=== PATIENT | female | born 1940 | race Caucasian/White ===

== ENCOUNTER 2019-08-22 11:50 | Emergency (ER) | payer OTHER ==
--- NOTE | 2019-08-22 12:38 | RAD REPORT ---
EXAM DESCRIPTION: RAD - Chest Single View - 08/22/2019 12:33 pm CLINICAL HISTORY: CONGESTION Chest pain. COMPARISON: Chest Single View dated 11/13/2017; Chest Single View dated 11/03/2017; Chest Single View d ated 08/04/2017; CHEST PA AND LAT 2 VIEW dated 08/04/2012 FINDINGS: Portable technique limits examination quality. A chronic left pleural effusion is seen. The right lung appears clear. Heart is mildly enlarged in si ze. Right-sided shunt tubing traverses the chest.
[2019-08-22 13:06] LABS: Absolute Lymphocytes (CBC) 0.4 K/uL (0.7-4.9); Basophils % 0.5 % (0-1.3); Hematocrit 29.8 % (36.0-45.0); Lymphocytes % 6.1 % (15.3-44.8); MPV 8.5 fL (7.6-11.3); RBC Red Blood Cell Count 3.46 M/uL (3.86-4.86)
--- NOTE | 2019-08-22 13:11 | RAD REPORT ---
EXAM DESCRIPTION: CT - Abdomen Pelvis Wo Contrast - 08/22/2019 1:01 pm CLINICAL HISTORY: Abdominal pain. ABD PAIN COMPARISON: No comparisons TECHNIQUE: CT imaging of the abdomen and pelvis was performed without contrast. Solid organ, bowel a nd vascular assessment is limited due to lack of IV and oral contrast. All CT scans are performed using dose optimization technique as appropriate and may include automated exposure control or mA/KV adjustment according to patient size. FINDINGS: Chronic left pleural effusion is seen.Right lung base is clear. The liver, spleen, pancreas, adrenal glands and kidneys are within normal limits for a limited non-co ntrast examination. No bowel obstruction, free air, free fluid or abscess. Shunt tubing coils in the inferior pelvis. The appendix is not identified as a discrete structure, however, no secondary findings of appendicitis a re identified. The osseous structures are within normal limits. IMPRESSION: No acute intra-abdominal or pelvic findings. Chronic left pleural effusion. A limited non-contrast examination was performed as detailed.
[2019-08-22 13:12] LABS: AST/SGOT 22 U/L (15-37); Albumin 2.5 g/dL (3.4-5.0); Alkaline Phosphatase 105 U/L (45-117); BUN Blood Urea Nitrogen 18 mg/dL (7-18); Bicarbonate 31 mmol/L (21-32); Bilirubin Direct 0.2 mg/dL (0-0.2); Bilirubin Total 0.7 mg/dL (0.2-1.0); Glucose Level 133 mg/dL (74-106); Lipase 83 U/L (73-393); Potassium 3.6 mmol/L (3.5-5.1); Protein, Total 6.8 g/dL (6.4-8.2); Sodium Level 137 mmol/L (136-145)
[2019-08-22 13:15] LABS: ALT/SGPT < 6 U/L (12-78)
--- NOTE | 2019-08-22 13:25 | ER ---
Nurse's Notes [facility] Name: Nori Gonzales Age: 79 yrs Sex: Female : 1940 Arrival Date: 08/22/2019 Time: 12:01 Bed 5 Private MD: Diagnosis: Acute upper respiratory infection, unspecified Presentation: 08/22 12:02 Presenting complaint: EMS states: Patient is complaining of a non-productive cough, vc sweating and chills. Patient states she has not experienced any shortness of breath. Patient states that she started to have severe abdominal pain prior to arrival. Patient has no pain since arrival. Transition of care: patient was received from another setting of care ([facility]. Onset of symptoms was August 17, 2019. Risk Assessment: Do you want to hurt yourself or someone else? Patient reports no desire to harm self or others. Initial Sepsis Screen: Does the patient meet any 2 criteria? No. Patient's initial sepsis screen is negative. Does the patient have a suspected source of infection? No. Patient's initial sepsis screen is negative. Care prior to arrival: None. 12:02 Method Of Arrival: EMS: [facility] vc 12:02 Acuity: JADEN 3 vc Triage Assessment: 12:05 General: Appears in no apparent distress. comfortable, Behavior is calm, cooperative. vc Pain: Denies pain. Historical: - Allergies: 12:12 Codeine; vc 12:12 Diovan; vc 12:12 HYDROCODONE; vc 12:12 IV contrast; vc - Home Meds: 12:12 docusate sodium 100 mg Oral cap 1 cap 2 times per day for Constipation [Active]; vc azithromycin 250 mg Oral tab 1 tab once daily [Active]; Carafate 1 gram Oral tab 1 tab before meals [Active]; carbidopa-levodopa 25-100 mg Oral tab 1 tab daily for Normal Pressure Hydrocephalus [Active]; Claritin 10 mg Oral tab 1 tab once daily for Allergic Rhinitis [Active]; Coreg 12.5 mg Oral tab 1 tab 2 times per day [Active]; Eliquis 5 mg oral tab 1 tab 2 times per day for Prevention of Pulmonary Thromboembolism Recurrence [Active]; Flonase 50 mcg/actuation Nasal spsn 1 spray 2 times per day [Active]; - PMHx: 12:12 adhesive apsulitis of right shoulder; ANOREXIA; PE; chronic fatigue; Diabetes - NIDDM; vc Hypothyroidism; Normal pressure hydrocephalus; Dysphagia, oral phase; Cognitive Comminication Deficit; lung cancer; - Immunization history:: Adult Immunizations unknown. - Social history:: Smoking status: Patient/guardian denies using tobacco, Patient uses Patient/guardian denies using alcohol, street drugs, The patient lives with family. - Ebola Screening: : No symptoms or risks identified at this time. - Family history:: not pertinent. Screenin:05 Abuse screen: Denies threats or abuse. Nutritional screening: History of anorexia.. vc 12:05 Tuberculosis screening: No symptoms or risk factors identified. Fall Risk Secondary vc diagnosis (15 points) impaired mobility, IV access (20 points). Gait- Impaired (20 pts.). Total Ortiz Fall Scale indicates High Risk Score (45 or more points). Fall prevention measures have been instituted. Side Rails Up X 2 Frequent Obs/Assessments Occuring. Assessment: 12:05 General: Appears in no apparent distress. comfortable, Behavior is calm, cooperative. vc Pain: Denies pain. Neuro: Level of Consciousness is obeys commands, lethargic, Oriented to person, situation. Cardiovascular: Patient's skin is warm and dry. Cardiovascular:. Respiratory: Reports cough that is non-productive, persistent since "for the last 5 days.". 12:05 GI: No deficits noted. : No signs and/or symptoms were reported regarding the vc genitourinary system. EENT: Eyes are tearing on right inner canthus Reports nasal congestion. Derm: Skin is intact, is thin, Skin is dry, Skin temperature is cool. Musculoskeletal: Range of motion: Intact but patient is weak and has an unsteady gate. 12:13 Reassessment: Patient is taking Azithromycin 250mg daily for an upper respiratory vc infection, started 12-, per jail paperwork. 13:00 Reassessment: Patient and/or family updated on plan of care and expected duration. Pain vc level reassessed. Patient is alert, oriented x 3, equal unlabored respirations, skin warm/dry/pink. 14:00 Reassessment: Patient laying with eyes closed. Patients son at the bedside. vc 15:00 Reassessment: Patient and/or family updated on plan of care and expected duration. Pain vc level reassessed. Patient is alert, oriented x 3, equal unlabored respirations, skin warm/dry/pink. Patient states she is feeling better except for her cough. Patient states feeling better. Vital Signs: 12:00 BP 116 / 64; Pulse 82; Resp 18; Pulse Ox 98% on R/A; Pain 0/10; vc 12:45 BP 127 / 73; Pulse 87; Resp 20; Pulse Ox 97% on R/A; Pain 0/10; vc 13:45 BP 148 / 82; Pulse 89; Resp 19; Pulse Ox 96% on R/A; Pain 0/10; vc 14:45 BP 156 / 88; Pulse 97; Resp 18; Pulse Ox 94% on R/A; Pain 0/10; vc 15:20 BP 165 / 88; Pulse 97; Resp 20; Pulse Ox 95% on R/A; Pain 0/10; vc ED Course: 12:01 Patient arrived in ED. ph 12:03 Jen Osorio MD is Attending Physician. ma2 12:05 Arm band placed on. vc 12:05 Patient has correct armband on for positive identification. Bed in low position. Call vc light in reach. Side rails up X 1. 12:07 Triage completed. vc 12:09 Radiology exam delayed due to lab results not completed at this time. (BUN/Creatinine) sw IV insertion attempt and/or patient not having appropriate IV at this time. 12:34 Chest Single View XRAY In Process Unspecified. EDMS 12:35 Missed attempt(s): 22 gauge Bleeding controlled, band aid applied, catheter tip intact. vc 12:38 Inserted saline lock: 22 gauge in right antecubital area, using aseptic technique. vc Blood collected. 12:38 Initial lab(s) drawn, by nm, sent to lab. vc 12:43 Latasha Herrmann, RN is Primary Nurse. vc 12:58 CT completed. Patient tolerated procedure well. Patient moved to CT via stretcher. Patient moved back from CT. 13:01 Abdomen In Process Unspecified. EDMS 15:00 No provider procedures requiring assistance completed. IV discontinued, intact, vc bleeding controlled, No redness/swelling at site. Pressure dressing applied. 15:26 Awaiting transportation. vc Administered Medications: 13:20 Drug: Pepcid 20 mg Route: IVP; Site: right antecubital; vc 15:07 Follow up: Response: No adverse reaction vc 13:20 Drug: GI Cocktail without - (Maalox Suspension 30 ml, Lidocaine Liquid 2 % 15 vc ml) Route: PO; 15:06 Follow up: Response: No adverse reaction vc 13:40 Drug: NS 0.9% 1000 ml Route: IV; Rate: 1000 ml; Site: right antecubital; vc 15:07 Follow up: Response: No adverse reaction; IV Status: Completed infusion vc 15:06 Not Given (Patient denies pain at this time.): morphine 2 mg IM once; RASS on ADMIN: vc Combtv4, Very Agttd3, Agttd2, Rstlss1, AlertClm0, Drwsy-1, Lt Sdtn-2, Mod Sdtn-3, Dp Sdtn-4, UnArsble-5 15:08 Not Given (Patient Refused): Zofran 4 mg IVP once; over 2 minutes vc Outcome: 13:23 Discharge ordered by MD. morales 15:01 Discharged to jail. Report called to Acacia cervantes 15:01 Condition: improved 15:01 Discharge instructions given to patient, family, jail, EMS, Instructed on discharge instructions, follow up and referral plans. medication usage, Demonstrated understanding of instructions, follow-up care, medications, Prescriptions given X 2. 15:47 Patient left the ED. vc Signatures: Dispatcher [employer] EDJoycelyn Gandhi RN RN ph Warren, Shannon sw Alzahri, Mohammad, MD MD ma2 Calcote, Vanessa, RN RN vc Corrections: (The following items were deleted from the chart) 12:55 12:38 Inserted saline lock: 22 gauge in right antecubital area, using aseptic vc technique. vc 14:48 12:02 Presenting complaint: EMS states: Patient is complaining of a non-productive vc cough, sweating and chills. Patient states she has not experienced any shortness of breath. vc
--- NOTE | 2019-08-22 13:25 | EDPHYS ---
Physician Documentation [facility] Name: Nori Gonzales Age: 79 yrs Sex: Female : 1940 Arrival Date: 08/22/2019 Time: 12:01 Bed 5 Private MD: ED Physician Jen Osorio HPI: 08/22 13:22 This 79 yrs old Female presents to ER via EMS with complaints of Cough. ma2 13:22 The patient or guardian reports cough. Onset: The symptoms/episode began/occurred ma2 acutely, 1 hour(s) ago. Severity of symptoms: At their worst the symptoms were mild, in the emergency department the symptoms are unchanged. Associated signs and symptoms: The patient has no apparent associated signs or symptoms. The patient has not experienced similar symptoms in the past. here with epigastric abd pain started after taking antibiotics for her cough, cough is resolved . Historical: - Allergies: 12:12 Codeine; vc 12:12 Diovan; vc 12:12 HYDROCODONE; vc 12:12 IV contrast; vc - Home Meds: 12:12 docusate sodium 100 mg Oral cap 1 cap 2 times per day for Constipation [Active]; vc azithromycin 250 mg Oral tab 1 tab once daily [Active]; Carafate 1 gram Oral tab 1 tab before meals [Active]; carbidopa-levodopa 25-100 mg Oral tab 1 tab daily for Normal Pressure Hydrocephalus [Active]; Claritin 10 mg Oral tab 1 tab once daily for Allergic Rhinitis [Active]; Coreg 12.5 mg Oral tab 1 tab 2 times per day [Active]; Eliquis 5 mg oral tab 1 tab 2 times per day for Prevention of Pulmonary Thromboembolism Recurrence [Active]; Flonase 50 mcg/actuation Nasal spsn 1 spray 2 times per day [Active]; - PMHx: 12:12 adhesive apsulitis of right shoulder; ANOREXIA; PE; chronic fatigue; Diabetes - NIDDM; vc Hypothyroidism; Normal pressure hydrocephalus; Dysphagia, oral phase; Cognitive Comminication Deficit; lung cancer; - Immunization history:: Adult Immunizations unknown. - Social history:: Smoking status: Patient/guardian denies using tobacco, Patient uses Patient/guardian denies using alcohol, street drugs, The patient lives with family. - Ebola Screening: : No symptoms or risks identified at this time. - Family history:: not pertinent. ROS: 13:22 Constitutional: Negative for fever, chills, and weight loss, Cardiovascular: Negative ma2 for chest pain, palpitations, and edema, Respiratory: Negative for shortness of breath, cough, wheezing, and pleuritic chest pain, Abdomen/GI: Negative for abdominal pain, nausea, diarrhea, and constipation. 13:22 All other systems are negative. Exam: 13:22 Constitutional: This is a well developed, well nourished patient who is awake, alert, ma2 and in no acute distress. Head/Face: Normocephalic, atraumatic. ENT: Nares patent. No nasal discharge, no septal abnormalities noted. Tympanic membranes are normal and external auditory canals are clear. Oropharynx with no redness, swelling, or masses, exudates, or evidence of obstruction, uvula midline. Mucous membranes moist. Neck: Trachea midline, no thyromegaly or masses palpated, and no cervical lymphadenopathy. Supple, full range of motion without nuchal rigidity, or vertebral point tenderness. No Meningismus. Chest/axilla: Normal chest wall appearance and motion. Nontender with no deformity. No lesions are appreciated. Cardiovascular: Regular rate and rhythm with a normal S1 and S2. No gallops, murmurs, or rubs. Normal PMI, no JVD. No pulse deficits. Respiratory: Lungs have equal breath sounds bilaterally, clear to auscultation and percussion. No rales, rhonchi or wheezes noted. No increased work of breathing, no retractions or nasal flaring. Abdomen/GI: Soft, non-tender, with normal bowel sounds. No distension or tympany. No guarding or rebound. No evidence of tenderness throughout. Skin: Warm, dry with normal turgor. Normal color with no rashes, no lesions, and no evidence of cellulitis. MS/ Extremity: Pulses equal, no cyanosis. Neurovascular intact. Full, normal range of motion. Neuro: Awake and alert, GCS 15, oriented to person, place, time, and situation. Cranial nerves II-XII grossly intact. Motor strength 5/5 in all extremities. Sensory grossly intact. Cerebellar exam normal. Normal gait. Vital Signs: 12:00 BP 116 / 64; Pulse 82; Resp 18; Pulse Ox 98% on R/A; Pain 0/10; vc 12:45 BP 127 / 73; Pulse 87; Resp 20; Pulse Ox 97% on R/A; Pain 0/10; vc 13:45 BP 148 / 82; Pulse 89; Resp 19; Pulse Ox 96% on R/A; Pain 0/10; vc 14:45 BP 156 / 88; Pulse 97; Resp 18; Pulse Ox 94% on R/A; Pain 0/10; vc 15:20 BP 165 / 88; Pulse 97; Resp 20; Pulse Ox 95% on R/A; Pain 0/10; vc MDM: 12:03 Patient medically screened. ma2 13:22 Differential Diagnosis: Bronchitis Upper Respiratory Infection Sinusitis Pharyngitis. ma2 Data reviewed: vital signs, nurses notes. Counseling: I had a detailed discussion with the patient and/or guardian regarding: the historical points, exam findings, and any diagnostic results supporting the discharge/admit diagnosis, the presence of at least one elevated blood pressure reading (>120/80) during this emergency department visit, the need for outpatient follow up. Response to treatment: the patient's symptoms have mildly improved after treatment. 08/22 12:05 Order name: BMP; Complete Time: 13:21 ma2 08/22 12:05 Order name: CBC with Diff; Complete Time: 13:21 ma2 08/22 12:05 Order name: Creatinine for Radiology; Complete Time: 13:21 ma2 08/22 12:05 Order name: Hepatic Function; Complete Time: 13:21 ma2 08/22 12:05 Order name: Lipase; Complete Time: 13:21 ma2 08/22 12:05 Order name: IV Saline Lock; Complete Time: 12:44 ma2 08/22 12:16 Order name: Chest Single View XRAY; Complete Time: 12:42 ma2 08/22 12:49 Order name: Abdomen ; Complete Time: 13:21 EDMS 08/22 12:05 Order name: Labs collected and sent; Complete Time: 12:46 ma2 08/22 12:05 Order name: NPO; Complete Time: 12:46 ma2 Administered Medications: 13:20 Drug: Pepcid 20 mg Route: IVP; Site: right antecubital; vc 15:07 Follow up: Response: No adverse reaction vc 13:20 Drug: GI Cocktail without - (Maalox Suspension 30 ml, Lidocaine Liquid 2 % 15 vc ml) Route: PO; 15:06 Follow up: Response: No adverse reaction vc 13:40 Drug: NS 0.9% 1000 ml Route: IV; Rate: 1000 ml; Site: right antecubital; vc 15:07 Follow up: Response: No adverse reaction; IV Status: Completed infusion vc 15:06 Not Given (Patient denies pain at this time.): morphine 2 mg IM once; RASS on ADMIN: vc Combtv4, Very Agttd3, Agttd2, Rstlss1, AlertClm0, Drwsy-1, Lt Sdtn-2, Mod Sdtn-3, Dp Sdtn-4, UnArsble-5 15:08 Not Given (Patient Refused): Zofran 4 mg IVP once; over 2 minutes vc Disposition: 08/22/19 13:23 Discharged to Home. Impression: Acute upper respiratory infection, unspecified. - Condition is Stable. - Discharge Instructions: Gastritis, Adult. - Prescriptions for Zofran 4 mg Oral Tablet - take 1 tablet by ORAL route every 12 hours As needed; 20 tablet. Pepcid 20 mg Oral Tablet - take 1 tablet by ORAL route once daily for 10 days; 10 tablet. - Medication Reconciliation Form, Thank You Letter, Antibiotic Education, Prescription Opioid Use, SBAR form form. - Follow up: Private Physician; When: Tomorrow; Reason: Continuance of care. Signatures: Dispatcher [employer] Jen Tavares MD MD ma2 Latasha Herrmann RN RN vc Corrections: (The following items were deleted from the chart) 12:49 12:06 Abdomen Pelvis W Con+[id number].[id number] ordered. [facility] 15:07 12:06 Urine Dipstick-Ancillary ordered. ma2 vc 15:47 13:23 08/22/2019 13:23 Discharged to Home. Impression: Acute upper respiratory vc infection, unspecified. Condition is Stable. Forms are Medication Reconciliation Form, Thank You Letter, Antibiotic Education, Prescription Opioid Use. Follow up: Private Physician; When: Tomorrow; Reason: Continuance of care. ma2
[2019-08-22] MEDS ORDERED: LIDOCAINE VISCOUS 2% SOLN 15 ML UDC ONE (13:27)
[2019-08-22] MEDS ORDERED: NA CHLORIDE 0.9% 1,000 ML ONE (13:27)
[2019-08-22] MEDS ORDERED: FAMOTIDINE 20 MG/2 ML VIAL IV ONE (13:27)
[2019-08-22] MEDS ORDERED: MAGNE/ALUM HYDROXD 30 ML UCUP ONE (13:27)
[2019-08-22 15:59] VITALS: BP 165/88; O2SAT 95
== END 2019-08-22 15:47 | disposition home or self-care (01) ==
LOC: ER 11:50
DX: J06.9 Acute upper respiratory infection, unspecified (principal); E03.9 Hypothyroidism, unspecified; E11.9 Type 2 diabetes mellitus without complications; R53.82 Chronic fatigue, unspecified; Z85.118 Personal history of other malignant neoplasm of bronchus and lung; Z79.01 Long term (current) use of anticoagulants; Z88.5 Allergy status to narcotic agent; Z88.8 Allergy status to other drugs, medicaments and biological substances; Z91.041 Radiographic dye allergy status
CPT/HCPCS: 96361; 85025; 80048; 36415; 80076; 83690; 74176; 71045; 96374; 99284; J7030

== ENCOUNTER 2020-07-26 23:03 | Inpatient (IN) | payer OTHER ==
--- OUTSIDE RECORDS SUMMARY | 2020-07-26 23:06 | XMS REPORT | Clinical Summary ---
:1940 Author Organization [facility] Address [address] [place] [address] Care Team Providers Name Role Phone Lizbeth Fong MD Primary Care Provider Allergies Active Allergy Reactions Severity Noted Date Comments No Known Drug Allergies 02/26/2016 Medications Medication Sig Dispensed Refills Start Date End Date Status carvedilol (COREG) Take 12.5 mg 0 Active 12.5 MG tablet by mouth 2 (two) times a day. MAGNESIUM OXIDE Take 400 mg 0 09/21/2017 A ctive ORAL by mouth daily. sennosides-docusate 2 tablets. 0 10/09/2017 Active sodium (SENEXON-S) 8.6-50 mg per tablet polyethylene glycol Take 17 g by 0 Active (MIRALAX) 17 gram mouth daily. packet promethazine Take 25 mg by 0 Act miranda (PHENERGAN) 25 MG mouth every 6 tablet (six) hours as needed for nausea or vomiting. docusate sodium Take 100 mg 0 Ac tive (COLACE) 100 MG by mouth 2 capsule (two) times a day. bisacodyl (FLEET) Insert 10 mg 0 Active 10 mg/30 mL enema into the rectum daily as needed for constipation. fluticasone 2 sprays by 0 Active propionate Each Nare (FLONASE) 50 route 2 (two) mcg/actuation nasal times a day. spray sucralfate Take 1 g by 0 Active (CARAFATE) 1 gram mouth 4 tablet (four) times a day. pantoprazole Take 40 mg by 0 Act miranda (PROTONIX) 40 MG EC mouth daily. tablet aspirin 325 MG Take 325 mg 0 08/01/2019 Di scontinued tablet by mouth daily. apixaban (ELIQUIS) Take by mouth 0 020 Discontinued 5 mg tablet 2 (two) times a day. Active Problems Problem Noted Date Acute renal failure 10/28/2012 Acute kidney injury 10/18/2012 Essential hypertension 10/18/2012 Malignant neoplasm of lung 10/18/2012 Hypercholesterolemia without hypertriglyceridemia 10/01 Encounters Date Type Specialty Care Team Description 07/24/2020 Office Visit Oncology Lizbeth Fong, Malignant ne oplasm of lung, unspecified laterality, unspecified par t of lung (HCC) (Marjorie jovani Dx) 07/24/2020 Travel 07/19/2020 Hospital Encounter Radiology Lizbeth Fong, Malign ant neoplasm of lung, unspecified laterality, unspecified par t of lung (HCC) 07/19/2020 Travel 07/17/2020 Telephone Oncology Sukhjinder Linda RN 07/13/2020 Travel 07/13/2020 Telephone Oncology Lizbeth Fong MD 10/05/2019 Hospital Encounter Radiation Oncology Nader Owusu MD Malignant neoplasm Dayday, Yumi, of right l bekah, RN unspecified par t of lung (HCC) (Marjorie jovani Dx) 10/05/2019 Orders Only Oncology Provider, Unknown 10/03/2019 Hospital Encounter Radiation Oncology Nader Owusu MD Butler, Edward B., MD 10/03/2019 Hospital Encounter Radiation Oncology Nader Owusu M D 10/03/2019 Orders Only Oncology Provider, Unknown 09/30/2019 Hospital Encounter Radiation Oncology Nader Owusu M D 09/30/2019 Orders Only Oncology Provider, Unknown 09/28/2019 Hospital Encounter Radiation Oncology Nader Owusu M D 09/28/2019 Orders Only Oncology Provider, Unknown 09/26/2019 Hospital Encounter Radiation Oncology Nader Owusu M D 09/26/2019 Orders Only Oncology Provider, Unknown 09/14/2019 Hospital Encounter Radiation Oncology Nader Owusu M D No Show 09/01/2019 Hospital Encounter Radiation Oncology Nader Owusu M D 08/05/2019 Hospital Encounter Radiology Nader Owusu MD Pulm onary nodule, right; Malignant neopl asm of left lung, unspecified part of lung (HCC) 08/04/2019 Hospital Encounter Radiology Nader Owusu MD Pulm onary nodule, right; Malignant neopl asm of left lung, unspecified part of lung (HCC) 08/03/2019 Orders Only Radiation Oncology Ghislaine, Pulmonary nodule, right (Primary Dx); Yamini Malignant neopl asm of left lung, unspecified part of lung (HCC) 08/01/2019 Hospital Encounter Radiation Oncology UmerNader MD Pulmonary nodule, right (Primary Dx); Spenser, Malignant neopl asm of right lung, unspecified part of lung (HCC); Ava Malignant neopl asm of left lung, unspecified part of lung (HCC) 08/01/2019 - Hospital Encounter Radiation Oncology Nader Owusu M D 08/02/2019 after 2019 Surgical History Surgery Date Site/Laterality Comments LUNG LOBECTOMY 08/31/2012 - 09/30/2012 Left LLL LUNG REMOVAL, PARTIAL Left lower TONSILLECTOMY Medical History Medical History Date Comments Cancer (HCC) lung cancer Hypertension Social History Tobacco Use Types Packs/Day Years Used Date Never Smoker Smokeless Tobacco: Never Used Alcohol Use Drinks/Week oz/Week Comments No Sex Assigned at Date Recorded Not on file Job Start Date Occupation Industry Not on file Not on file Not on file COVID-19 Exposure Response Date Recorded In the last month, have you been in contact with No / Unsure 07/24/2020 11:23 AM [employer] someone who was confirmed or suspected to have Coronavirus / COVID-19? Last Filed Vital Signs Vital Sign Reading Time Taken Comments Blood Pressure 143/80 10/05/2019 11:26 AM [employer] Pulse 88 10/05/2019 11:26 AM [employer] Temperature 36.5 C (97.7 F) 07/24/2020 11:31 AM [employer] Respiratory Rate 16 10/05/2019 11:26 AM [employer] Oxygen Saturation 98% 10/05/2019 11:26 AM [employer] Inhaled Oxygen Concentration - - Weight 41 kg (90 lb 6.4 oz) 07/24/2020 11:31 AM [employer] Height 154.9 cm (5' 1") 10/05/2019 11:26 AM [employer] Body Mass Index 17.08 10/05/2019 11:26 AM [employer] Plan of Treatment Health Maintenance Due Date Last Done Comments SHINGLES VACCINES (#1) 1989 65+ PNEUMOCOCCAL VACCINE (1 of 1 - PPSV23) 2004 INFLUENZA VACCINE 03/31/2020 Procedures Procedure Name Priority Date/Time Associated Diagnosis Comme nts CT CHEST WO CONTRAST Routine 07/19/2020 1:52 Malignant neopla sm Results for this PM [employer] of lung, unspecified procedu re are in laterality, the results unspecified part of section. lung (HCC) RAD ONC COURSE Routine 10/05/2019 6:00 Results f or this SUMMARY PM [employer] procedure are i n the results section. RAD ONC DAILY Routine 10/05/2019 11:06 Results fo r this TREATMENT AM [employer] procedure are i n the results section. RAD ONC DAILY Routine 10/03/2019 11:15 Results fo r this TREATMENT AM [employer] procedure are i n the results section. RAD ONC DAILY Routine 09/30/2019 11:08 Results fo r this TREATMENT AM [employer] procedure are i n the results section. RAD ONC DAILY Routine 09/28/2019 11:10 Results fo r this TREATMENT AM [employer] procedure are i n the results section. RAD ONC DAILY Routine 09/26/2019 11:35 Results fo r this TREATMENT AM [employer] procedure are i n the results section. NM LUNG QUANTITATIVE Routine 08/05/2019 12:15 Pulmonary nodule , Results for this DIFFERENTIAL FUNCTION PM [employer] right procedure are in VENTILATION / Malignant neoplasm the resu lts PERFUSION of left lung, section. unspecified part of lung (HCC) PET CT SKULL BASE TO Routine 08/04/2019 1:01 Pulmonary nodule , Results for this MID THIGH PM [employer] right procedure are in Malignant neoplasm the resul ts of left lung, section. unspecified part of lung (HCC) after [address] Chest Wo Contrast (07/19/2020 1:52 PM WEED SPR[employer]ER) Specimen Narrative Performed At EXAMINATION: CT CHEST WO CONTRAST [facility] CLINICAL HISTORY: Malignant neoplasm of unspecified part of unspecified bronchus or lung, restage dickson ng cancer COMPARISON: CT chest 07/22/2019 TECHNIQUE: CT of the chest without intravenous contr ast. Absence of contrast decreases sensitivity for detection of focal lesions and vascular pathology. CT imaging was performed with iter ative reconstruction techniques and/or automat ed exposure control to reduce radiation dose. FINDINGS: Lungs and airways: Complete left lung collapse with ab rupt cut off/soft tissue density in the left mainstem bronchus. Interval growth of right lower lobe ill-defined spiculated masslike opacity now measuring 19 x 16 mm (previously 8 mm). Pleura: Trace left pleural effusion with thickening of the surrounding pleura. No pneumothorax. Cardiovascular: Thoracic aorta is atherosclerotic, non aneurysmal. Coronary artery calcifications. Mediastinum and lymph nodes: Leftward mediastinal sh ift. Enlarging anterior mediastinal lymph nodes just to the left of t he ascending aorta the largest now measuring 1.3 x 1.1 cm, previously baldomero suring 0.5 x 0.3 cm. Upper abdomen: No suspicious abnormaliti es. Musculoskeletal: Degenerative changes of the osseous s tructures. Thoracic kyphosis. Diffuse osseous demin eralization. IMPRESSION: 1.Complete left lung collapse with leftward mediastina l shift. There is abrupt cut off/soft tissue density in the left mainste m bronchus. This could be secondary to a large obstructing mucous plug although neoplasm cannot be excluded. Further evaluation with bronchoscopy is recommended. Interval growth of r ight lower lobe ill-defined spiculated masslike opacity now measuring 19 x 16 mm (previously 8 mm). Enlarging anterior me diastinal lymph nodes [id number] Dictated and approved by radiology scheduler/fellow: Iban Sims M.D. I, Saroj Rogers MD, personally reviewed the images an d resident's/fellow's findings and agree with the final report. Procedure Note [facility], Radiology Results Incoming - 07/19/2020 3:10 PM WEED SPR[employer]ER EXAMINATION: CT CHEST WO CONTRAST CLINICAL HISTORY: Malignant neoplasm of unspecified part of unspecified bronchus or lung, restage lung cancer COMPARISON: CT chest 07/22/2019 TECHNIQUE: CT of the chest without intr avenous contrast. Absence of contrast decreases sensitivity for detection of focal lesions and vascular pathology. CT imaging was performed with iterative reconstruction techniques and/or automated exposure con trol to reduce radiation dose. FINDINGS: Lungs and airways: Complete left lung co llapse with abrupt cut off/soft tissue density in the left mainstem bronchus. Interval growth of right lower lobe ill- defined spiculated masslike opacity now measuring 19 x 16 mm (previously 8 mm). Pleura: Trace left pleural effusion with thickening of the surrounding pleura. No pneumothorax. Cardiovascular: Thoracic aorta is athero sclerotic, nonaneurysmal. Coronary artery calcifications. Mediastinum and lymph nodes: Leftward m ediastinal shift. Enlarging anterior mediastinal lymph nodes just to the left of the ascending aorta the largest now measuring 1.3 x 1.1 cm, previously measuring 0.5 x 0.3 cm. Upper abdomen: No suspicious abnormaliti es. Musculoskeletal: Degenerative changes of the osseous structures. Thoracic kyphosis. Diffuse osseous demineralization. IMPRESSION: 1.Complete left lung collapse with leftw yudith mediastinal shift. There is abrupt cut off/soft tissue density in the left mainstem bronchus. This could be secondary to a large obstructing mucous plug although neoplasm cannot be excluded. Further evaluation with bronchoscopy is recommended. Interv al growth of right lower lobe ill- defined spiculated masslike opacity now measuring 19 x 16 mm (previously 8 mm). Enlarging anterior mediastinal lymph nodes [id number] Dictated and approved by radiology resid ent/fellow: Saba Sims M.D. I, Saroj Rogers MD, personally reviewed the images and resident's/fellow's findings and agree with the final report. Performing Organization Address City/State/ZIP Code Phon e Number [facility] [address] [place] [address] RAD ONC COURSE SUMMARY (10/05/2019 6:00 PM WEED SPR[employer]ER) Pathologist Sig nature Course ID [email or web address] ARIA Course Start Date 2019-08-10 @18:34 ARIA Treatment Elapsed Days 9 ARIA Course Intent Curative ARIA Treatment Dates Course End Date: 2019-10-05 @17:59 ADRIANA A First Treatment Date: 2019-09-26 @11:30 Last Treatment Date: 2019-10-05 @11:03 Reference Point ID Rt Lung SBRT ARIA Dosage Given to Date 50 ARIA in Gy Plan ID Rt Lung SBRT ARIA Plan Name Rt Lung SBRT ARIA Fractions Treated to 5 of 5 ARIA Date Prescribed Dose Per 10 ARIA Fraction in Gy Prescription Dose in 5,000 ARIA cGy Specimen Performing Organization Address City/State/ZIP Code Phon e Number [facility] [address] [facility] [place] [address] RAD ONC DAILY TREATMENT (10/05/2019 11:06 AM WE[employer]ER) Pathologist Sig nature Course ID C2 ARIA Course Start Date 2019-08-10 @18:34 ARIA Treatment Elapsed Days 9 ARIA Course Intent Curative ARIA Treatment Dates First Treatment Date: 2019-09-26 @11:30 ARIA Last Treatment Date: 2019-10-05 @11:03 Reference Point ID Rt Lung SBRT ARIA Dosage Given to Date 50 ARIA in Gy Session Dosage Given 10 ARIA in Gy Plan ID Rt Lung SBRT ARIA Plan Name Rt Lung SBRT ARIA Fractions Treated to 5 of 5 ARIA Date Prescribed Dose Per 10 ARIA Fraction in Gy Prescription Dose in 5,000 ARIA cGy Specimen Performing Organization Address City/[facility] Phon e Number [facility] [address] [place] [address] RAD ONC DAILY TREATMENT (10/03/2019 11:15 AM WEED [employer]ER) Pathologist Sig nature Course ID C2 ARIA Course Start Date 2019-08-10 @18:34 ARIA Treatment Elapsed Days 7 ARIA Course Intent Curative ARIA Treatment Dates First Treatment Date: 2019-09-26 @11:30 ARIA Last Treatment Date: 2019-10-03 @11:13 Reference Point ID Rt Lung SBRT ARIA Dosage Given to Date 40 ARIA in Gy Session Dosage Given 10 ARIA in Gy Plan ID Rt Lung SBRT ARIA Plan Name Rt Lung SBRT ARIA Fractions Treated to 4 of 5 ARIA Date Prescribed Dose Per 10 ARIA Fraction in Gy Prescription Dose in 5,000 ARIA cGy Specimen Performing Organization Address [facility] Phon e Number [facility] [address] [place] [address] RAD ONC DAILY TREATMENT (09/30/2019 11:08 AM WEED SPR[employer]ER) Pathologist Sig nature Course ID C2 ARIA Course Start Date 2019-08-10 @18:34 ARIA Treatment Elapsed Days 4 ARIA Course Intent Curative ARIA Treatment Dates First Treatment Date: 2019-09-26 @11:30 ARIA Last Treatment Date: 2019-09-30 @11:06 Reference Point ID Rt Lung SBRT ARIA Dosage Given to Date 30 ARIA in Gy Session Dosage Given 10 ARIA in Gy Plan ID Rt Lung SBRT ARIA Plan Name Rt Lung SBRT ARIA Fractions Treated to 3 of 5 ARIA Date Prescribed Dose Per 10 ARIA Fraction in Gy Prescription Dose in 5,000 ARIA cGy Specimen Performing Organization Address City/[facility] Phon e Number [facility] [address] [place] [address] RAD ONC DAILY TREATMENT (09/28/2019 11:10 AM WEED SPR[employer]ER) Pathologist Sig nature Course ID C2 ARIA Course Start Date 2019-08-10 @18:34 ARIA Treatment Elapsed Days 2 ARIA Course Intent Curative ARIA Treatment Dates First Treatment Date: 2019-09-26 @11:30 ARIA Last Treatment Date: 2019-09-28 @11:08 Reference Point ID Rt Lung SBRT ARIA Dosage Given to Date 20 ARIA in Gy Session Dosage Given 10 ARIA in Gy Plan ID Rt Lung SBRT ARIA Plan Name Rt Lung SBRT ARIA Fractions Treated to 2 of 5 ARIA Date Prescribed Dose Per 10 ARIA Fraction in Gy Prescription Dose in 5,000 ARIA cGy Specimen Performing Organization Address [facility] Phon e Number [facility] [address] [place] [address] RAD ONC DAILY TREATMENT (09/26/2019 11:35 AM WEED [employer]ER) Pathologist Sig nature Course ID C2 ARIA Course Start Date 2019-08-10 @18:34 ARIA Treatment Elapsed Days 0 ARIA Course Intent Curative ARIA Treatment Dates First Treatment Date: 2019-09-26 @11:30 ARIA Last Treatment Date: 2019-09-26 @11:32 Reference Point ID Rt Lung SBRT ARIA Dosage Given to Date 10 ARIA in Gy Session Dosage Given 10 ARIA in Gy Plan ID Rt Lung SBRT ARIA Plan Name Rt Lung SBRT ARIA Fractions Treated to 1 of 5 ARIA Date Prescribed Dose Per 10 ARIA Fraction in Gy Prescription Dose in 5,000 ARIA cGy Specimen Performing Organization Address [facility] Phon e Number [facility] [address] [place] [address] NM Lung Quantitative Differential Function Ventilation / Perfusion (08/05/2019 12:15 PM WEED [employer]ER) Specimen Narrative Performed At PROCEDURE: NM LUNG QUANTITATIVE DIFFERENTIAL FUNCTION VENTILATION [facility] PERFUSION INDICATION: R91.1 Solitary pulmonary nodule, C34.92 Ma lignant neoplasm of unspecified part of left bronchus or lung, hx XRT a nd lobectomy on L side XRT planning COMPARISON: PET CT 08/04/2019 TECHNIQUE: Planar ventilation images were acquired aft er the inhalation of 15 mCi of Xe-133 gas. Planar perfusion images were acquired after the IV administration of 5 mCi of Tc-99m MAA. Quantificati on of lung function was performed using the geometr ic mean of the anterior and posterior perfu raymundo images. FINDINGS: Left lung volume loss is noted. Ventilation and perfusion are moderately heterogeneous bilaterally. No suspicious se gmental defects are seen. Gas washout is moderately aida yed. QUANTITATION: Left lung = 17% Right lung = 83% IMPRESSION: 1.Low probability of acute pulmonary emb olism. 2.Obstructive airway disease. 3.Split function as quantified above. [id number] Procedure Note Interface, Radiology Results Incoming - 08/05/2019 4:57 PM WEED [employer]ER PROCEDURE: NM LUNG QUANTITATIVE DIFFERENTIAL FUNCTION VENTILATION PERFUSION INDICATION: R91.1 Solitary pulmonary nod ule, C34.92 Malignant neoplasm of unspecified part of left bronchus or lung, hx XRT and lobectomy on L side XRT planning COMPARISON: PET CT 08/04/2019 TECHNIQUE: Planar ventilation images wer e acquired after the inhalation of 15 mCi of Xe-133 gas. Planar perfusion images were acquired after the IV administration of 5 mCi of Tc-99m MAA. Quantification of lung function was performed using the geometric mean of the anterior and posterior perfu raymundo images. FINDINGS: Left lung volume loss is noted . Ventilation and perfusion are moderately heterogeneous bilaterally. No suspicious segmental defects are seen. Gas washout is moderately delayed. QUANTITATION: Left lung = 17% Right lung = 83% IMPRESSION: 1.Low probability of acute pulmonary emb olism. 2.Obstructive airway disease. 3.Split function as quantified above. [id number] Performing Organization Address City/State/ZIP Code Phon e Number [facility] [address] [place] [address] PET/CT Skull Base To Mid Thigh (08/04/2019 1:01 PM WEED SPR[employer]ER) Specimen Narrative Performed At EXAMINATION: PET CT SKULL BASE TO MID THIGH [facility] CLINICAL HISTORY: R91.1 Solitary pulmonary nodule, C34 .92 Malignant neoplasm of unspecified part of left bronchus or lung, Restaging lung cancer XRT planning ; RESTAGING COMPARISON: PET/CT 05/20/2018, CT chest 07/22/2019, TECHNIQUE: The patient received 10-15 mCi 18-FDG intra venously. 1 hour later, PET/CT scanning from the orbits to the mid thig hs was performed. CT scanning was nondiagnostic and used for attenuation correction purposes and to aid in localization of a ny abnormal findings on the PET images. Automated dose ex posure control was utilized. Blood glucose = 99. FINDINGS: Head and Neck There is no suspicious lymph node uptake and no eviden ce of malignancy in the visualized brain. Chest 2.8 cm mass-like opacity abutting the superior aspect of postsurgical changes in the posteromedial left mid lung, associated with marked uptake (SUV = 7.8). Just inferior and posterior to thi s is prominent, focal uptake just posterolateral to the descending aorta within ill-defined soft tissue abutti ng the pleura (SUV = 5.8). Just inferior to that in the posteromedial lef t lung is a 2 cm somewhat amorphous opacity with an SUV of 5.6. A 1 cm nodule in the right lower lobe has increased significantly from prior PET/CT and has an SUV of 1.8 (previously 6 mm with no uptake). Mediastinal, hilar, and axillary uptake are normal. Abdomen Uptake in the liver, spleen, adrenal glands, pancreas, kidneys, and stomach is normal. There is no suspicious retroperiton eal or mesenteric lymph node uptake. Pelvis There is no suspicious pelvic or inguina l lymph node uptake. Osseous Structures There is no suspicious osseous uptake. IMPRESSION: 1.Probable recurrent malignancy at 3 sites in the post eromedial left mid lung. 2.Worsening right lower lobe pulmonary nodule, suspici ous for metastatic disease. [id number] Procedure Note [facility], Radiology Results Incoming - 08/04/2019 2:01 PM WEED SPR[employer]ER EXAMINATION: PET CT SKULL BASE TO MID THIGH CLINICAL HISTORY: R91.1 Solitary pulmona ry nodule, C34.92 Malignant neoplasm of unspecified part of left bronchus or lung, Restaging lung cancer XRT planning ; RESTAGING COMPARISON: PET/CT 05/20/2018, CT chest 07/22/2019, TECHNIQUE: The patient received 10-15 mC i 18-FDG intravenously. 1 hour later, PET/CT scanning from the orbits to the mid thighs was performed. CT scanning was nondiagnostic and used for attenuation correction purposes and to aid in localization of any abnormal findings on the PET images. Aut omated dose exposure control was utilized. Blood glucose = 99. FINDINGS: Head and Neck There is no suspicious lymph node uptake and no evidence of malignancy in the visualized brain. Chest 2.8 cm mass-like opacity abutting the coley perior aspect of postsurgical changes in the posteromedial left mid lung, associated with marked uptake (SUV = 7.8). Just inferior and posterior to this is prominent, focal uptake just posterolateral to the descending aorta within ill-defined soft tissue abutting the pleura (SUV = 5.8). Just inferior to that in the posteromedial left lung is a 2 cm somewhat amorphous opacity with an SUV of 5.6. A 1 cm nodule in the right lower lobe has increased significantly from prior PET/CT and has an SUV of 1.8 (previously 6 mm with no uptake). Mediastinal, hilar, and axillary uptake are normal. Abdomen Uptake in the liver, spleen, adrenal gla nds, pancreas, kidneys, and stomach is normal. There is no suspicious retroperitoneal or mesenteric lymph node uptake. Pelvis There is no suspicious pelvic or inguina l lymph node uptake. Osseous Structures There is no suspicious osseous uptake. IMPRESSION: 1.Probable recurrent malignancy at 3 sit es in the posteromedial left mid lung. 2.Worsening right lower lobe pulmonary n odule, suspicious for metastatic disease. [id number] Performing Organization Address City/State/ZIP Code Phon e Number [facility] [address] [place] [address] after 2019 Insurance Payer Benefit Plan / Subscriber ID Effective Phone Address T ype Group Dates MEDICARE MEDICARE PART [id number] 2004-[place], [place] Medicare A AND B ent MUTUAL OF [employer] OF [id number] [facility] [place] MEDICAID [id number] 2017-[facility] Medic aid nt (Work) [id number] Advance Directives For more information, please contact: [phone] Type Date Recorded 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
--- OUTSIDE RECORDS SUMMARY | 2020-07-26 23:06 | XMS REPORT | Clinical Summary ---
:1940 Author Organization [facility] Address [address] [place] [address] Care Team Providers Name Role Phone Sharpjeremie Primary Care Provider Allergies Active Allergy Reactions Severity Noted Date Comments No Known Drug Allergies 02/26/2016 Medications Medication Sig Dispensed Refills Start Date End Date Status aspirin 81 MG EC Take 81 mg by mouth 0 Active tablet daily. enoxaparin Inject 0.8 mLs (80 mg 0 11/12/2017 Active (LOVENOX) 80 total) subcutaneously mg/0.8 mL Syrg daily. carvedilol (COREG) Take 6.25 mg by mouth 0 Active 6.25 MG tablet 2 (two) times daily with breakfast and dinner. magnesium oxide Take 400 mg by mouth 0 Active (MAG-OX) 400 mg daily. tablet carbidopa-levodopa Take 1 tablet by mouth 0 Active (SINEMET) 25-100 daily. mg per tablet Active Problems Problem Noted Date Hypotension due to drugs 11/14/2017 Acute blood loss anemia 11/06/2017 Atrial fibrillation with RVR 11/06/2017 Acute massive pulmonary embolism 11/04/2017 Acute cor pulmonale 11/04/2017 Acute cystitis 11/04/2017 Lung cancer 11/04/2017 [place] (acute kidney injury) 11/04/2017 Acute hypoxemic respiratory failure 11/03/2017 Social History Tobacco Use Types Packs/Day Years Used Date Never Smoker Smokeless Tobacco: Never Used Sex Assigned at Date Recorded Not on file Last Filed Vital Signs Not on file Plan of Treatment Health Maintenance Due Date Last Done Comments PNEUMOCOCCAL 65+ YRS (1 of 1 - [id number]) 2004 MEDICARE ANNUAL WELLNESS (YEAR 2 or FIRST YEAR if no 07/02/2005 IPPE) INFLUENZA VACCINE (#1) 2020 Results Not on fileafter 2019 Insurance Payer Benefit Plan / Subscriber ID Effective Dates Phone Addre ss Type Group MEDICARE MEDICARE A B [id number] 2004-Presen Medicare t [employer] [id number] 2015-Present Medigap SUPPLEMENT/INDIV IDUAL MEDICAID MEDICAID OF [id number] 2017-Present Alicja du [place] Advance Directives For more information, please contact: [phone] Code Status Date Activated Date Inactivated Comments Full Code 11/13/2017 4:57 PM 11/19/2017 8:42 PM This code status was determined by: Patient Partial Code 11/04/2017 11:22 AM 11/11/2017 7:47 PM This code status was determined by: Patient Drug Protocol After Arrest Occurs? No Mechanical Ventilation with Intubation? No Bag/Mask? No Internal/External Pacemaker? No Transfer to Critical Care? Yes Chest Compressions? No Defibrillation/Cardioversion? No Full Code 11/03/2017 8:23 PM 11/04/2017 11:22 AM This code status was determined by: Patient
--- OUTSIDE RECORDS SUMMARY | 2020-07-26 23:06 | XMS REPORT | Continuity of Care Document ---
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/2018 MH disorder, [place] systemic arterial (disorder) Malignant tumor Resolved Problem 01/01/2018 MH of lung [facility] (disorder) Muscle weakness Active Problem 01/01/2018 MH (finding) [facility] Normal pressure Active Problem 01/01/2018 [facility] hydrocephalus [place] [facility] (disorder) COMMUNICATING Active MH HYDROCEPHALUS [facility] [facility] Medications Medication Details Route Status Patient Ordering Order Source Instructions Provider Date Ibuprofen 400 MG 400 mg = 1 tab, Active Oral Tablet PO, Q8H, PRN 2017 [facility] Pain Score 6-10, 0 Refill(s) carvedilol Notes: Give No Longer with food. Active 2017 (Same As: Coreg) Mag-Ox 400 Notes: (Same No Longer as: Mag-Ox 400) 2017 Magnesium oxide [id number] elemental magnesium Dose=____mg magnesium oxide (___mg elemental magnesium) carbidopa-levodop Notes: Take No Longer a with milk or 2017 [facility] food. (Same As: Sinemet) Reglan Notes: (Same No Longer as: Reglan) 2017 Take 30 min before meals melatonin Notes: (Same No Longer as: Melatonin) Active 2017 [facility] Motrin Notes: (Same No Longer as: Motrin) "Do [facility] Crush" Give with food. Ondansetron 4 mg, Route: Inactive IVP, ONCE, 2017 [facility] Dosing Weight 56.136, kg, PRN Nausea & Vomiting, Start date: 09/22/17 15:09:00 [employer] Diphenhydramine 12.5 mg, Route: Inactive IVP, Drug form: 2018 [place] INJ, Q6H, Dosing Weight 56.136, kg, PRN Itching, Start date: 09/22/17 15:09:00 [employer], Duration: 30 day, Stop date: 10/22/17 15:08:00 [employer] Albuterol 0.83 2.49 mg, Route: Inactive MG/ML Inhalant NEB, Q20Min, 2018 [place] [facility] Solution Dosing Weight 56.136, kg, PRN Wheezing, Priority: STAT, Start date: 09/22/17 15:09:00 [employer], Duration: 30 day, Stop date: 10/22/17 15:08:00 [employer] Hydralazine 10 mg, Route: Inactive IVP, Q20Min, 2017 [facility] Dosing Weight 56.136, kg, PRN Elevated BP, Start date: 09/22/17 15:09:00 [employer], Duration: 2 doses or times, Stop date: Limited # of times Flumazenil 0.2 mg, Route: Inactive IVP, PRN, 2017 [facility] Dosing Weight 56.136, kg, PRN Benzodiazepine Reversal, Initial dose, Start date: 09/22/17 15:09:00 [employer], Duration: 30 day, Stop date: 10/22/17 15:08:00 [employer] Naloxone 0.4 mg, Route: Inactive IVP, Q2MIN, 2017 [facility] Dosing Weight 56.136, kg, PRN Narcotic Reversal, Start date: 09/22/17 15:09:00 [employer], Duration: 8 doses or times, Stop date: Limited # of times Hydromorphone 0.5 mg, Route: Inactive IVP, Q5Min, 2017 [facility] Dosing Weight 56.136, kg, PRN Pain Score 7-10, Start date: 09/22/17 15:09:00 [employer], Duration: 4 doses or times, Stop date: Limited # of times Fentanyl 50 microgram, Inactive Route: IVP, 2017 [facility] Q5Min, Dosing Weight 56.136, kg, PRN Pain Score 7-10, Priority: Routine, Start date: 09/22/17 15:09:00 [employer], Duration: 2 doses or times, Stop date: Limited # of times Oxycodone 5 mg, Route: Inactive PO, Drug form: 2017 [facility] TAB, Q4H, Dosing Weight 56.136, kg, PRN Pain Score 4-6, Start date: 09/22/17 15:09:00 [employer], Duration: 30 day, Stop date: 10/22/17 15:08:00 [employer] Acetaminophen 1,000 mg, Inactive Route: PO, Drug 2017 [facility] t form: TAB, ONCE, Dosing Weight 56.136, kg, PRN Pain Score 1-3, Start date: 09/22/17 15:09:00 [employer] Ketorolac 30 mg, Route: Inactive IVP, ONCE, 2017 [facility] Dosing Weight 56.136, kg, Start date: 09/22/17 15:09:00 [employer], Stop date: 09/22/17 15:09:00 [employer] Labetalol 10 mg, Route: Inactive IVP, Q5Min, 2017 [facility] Dosing Weight 56.136, kg, PRN Elevated BP, Start date: 09/22/17 15:09:00 [employer], Duration: 5 doses or times, Stop date: Limited # of times Morphine 1 mg, Route: Inactive IVP, Q2H, 2017 [facility] Dosing Weight 56.136, kg, PRN Pain Score 7-10, Start date: 09/22/17 14:52:00 [employer], Duration: 30 day, Stop date: 10/22/17 14:51:00 [employer] tramadol 100 mg, Route: Inactive hydrochloride 50 PO, Drug form: 2017 [facility] MG Oral Tablet TAB, Q6H, Dosing Weight 56.136, kg, PRN Pain Score 4-6, Start date: 09/22/17 14:52:00 [employer], Duration: 30 day, Stop date: 10/22/17 14:51:00 [employer] ondansetron Route: IV, Drug Inactive (ANES) form: INJ, 2017 ONCE, Stop date: 09/22/17 14:44:00 [employer] glycopyrrolate Route: IV, Drug Inactive (ANES) form: INJ, 2017, Stop date: 09/22/17 14:44:00 [employer] neostigmine Route: IV, Drug Inactive (ANES) form: INJ, 2017, Stop date: 09/22/17 14:44:00 [employer] dexamethasone Route: IV, Drug Inactive 09/22/ M H (ANES) form: INJ, 2017, Stop date: 09/22/17 14:10:00 [employer] phenylephrine Route: IV, Drug Inactive 09/22/ M H (ANES) form: INJ, 2017, Stop date: 09/22/17 14:10:00 [employer] fentaNYL (ANES) Route: IV, Drug Inactive form: INJ, 2017, Stop date: 09/22/17 14:05:00 [employer] lidocaine (ANES) Route: IV, Drug Inactive form: INJ, 2017, Stop date: 09/22/17 14:05:00 [employer] ceFAZolin (ANES) Route: IV, Drug Inactive form: INJ, 2017, Stop date: 09/22/17 14:05:00 [employer] rocuronium (ANES) Route: IV, Drug Inactive 09/22 form: INJ, 2017, Stop date: 09/22/17 14:05:00 [employer] propofol (ANES) Route: IV, Drug Inactive form: INJ, 2017, Stop date: 09/22/17 14:05:00 [employer] Lactated Ringers Route: IV, Inactive Injection IV Total Volume: 2017 [facility] (ANES) 1000 mL 1,000, Start date: 09/22/17 13:05:00 [employer], Stop date: 09/22/17 14:05:00 [employer] methylene blue 10 Notes: (Same as No Longer 09/01 mg/mL injectable :ProvayBlue) Active 2017 [facility] solution MEDICATION WASTE Product Size: 50 mg Product Wasted: ___ mg Calcium Chloride 1,000 mL, Rate: Inactive 0.0014 MEQ/ML / 25 ml/hr, 2018 [place] [facility] Potassium Infuse over: 40 Chloride 0.004 hr, Route: IV, MEQ/ML / Sodium Dosing Weight Chloride 0.103 56.136 kg, MEQ/ML / Sodium Total Volume: Lactate 0.028 1,000, Start MEQ/ML Injectable date: 09/22/17 Solution 9:04:00 [employer], Duration: 30 day, Stop date: 10/22/17 9:03:00 [employer], 1.56, m2 Carbidopa 25 MG / 1 tab, PO, BID, Active Levodopa 100 MG 0 Refill(s) 2017 [facility] Oral Tablet Metoclopramide 5 5 mg = 1 tab, Active H MG Oral Tablet PO, QID-Before 2017 [facility] [Reglan] Meals, 0 Refill(s) magnesium oxide 400 mg = 1 tab, Active 400 mg oral PO, Daily, 0 [address] [facility] [address] tablet Refill(s) melatonin 5 mg 5 mg = 1 tab, Active oral tablet PO, Bedtime, [address] PRN for insomnia, # 60 tab, 0 Refill(s) carvedilol 6.25 6.25 mg = 1 Active mg oral tablet tab, PO, BID, 0 2017 [facility] Refill(s) Allergies, Adverse Reactions, Alerts Substance Category Reaction Severity Reaction Status Date Comments S ource type Reported sulfa drugs Assertion Drug Active MH allergy [place] [facility] contrast Assertion Drug Active oral MH media allergy [place] [facility] (iodine-bas ed)<sup>1</ sup> Immunizations No Data Provided for This Section Results Order Name Results Value Reference Date Interpretation Comments Neli rce Range BODY FLUIDS Protein CSF 11 15 - 45 09/22 [facility] BODY FLUIDS Glucose CSF 64 45 - 80 09/22 [facility] CHEM PANEL eGFR 39 09/21 Result Comment: The [facility] eGFR is calculated using the CKD-EPI formula. In most young, healthy individuals the eGFR will be >90 mL/min/1.73m2 . The eGFR declines with age. An eGFR of 60-89 may be normal in some populations, particularly the elderly, for whom the CKD-EPI formula has not been extensively validated. Use of the eGFR is not recommended in the following populations:< br/>
Viri viduals with unstable creatinine concentration s, including patients and those with serious co-morbid conditions.<b r/>
Patie nts with extremes in muscle mass or diet.

The data above are obtained from the National Kidney Disease Education Program (NKDEP) which additionally recommends that when the eGFR is used in patients with extremes of body mass index for purposes of drug dosing, the eGFR should be multiplied by the estimated BMI. CHEM PANEL Sodium Lvl 137 135 - 145 09/21 [facility] CHEM PANEL Creatinine 1.32 0.50 - 09/21 MH Lvl 1.40 /2017 [facility] CHEM PANEL BUN 21 7 - 22 09/21 [facility] CHEM PANEL Glucose Lvl 136 70 - 99 09/21 [facility] CHEM PANEL CO2 29 24 - 32 09/21 [facility] CHEM PANEL Chloride Lvl 100 95 - 109 09/21 [facility] CHEM PANEL Calcium Lvl 8.9 8.5 - 10.5 09/21 [facility] CHEM PANEL Potassium Lvl 4.4 3.5 - 5.1 09/21 [facility] CHEM PANEL AGAP 12.4 10.0 - 09/21 MH 20.0 [facility] HEMATOLOGY Segs-Bands # 4.3 1.5 - 8.1 09/21 [facility] HEMATOLOGY Monocytes # 0.5 0.0 - 0.8 09/21 [facility] HEMATOLOGY Basophils 1.2 0.0 - 1.0 09/21 [facility] HEMATOLOGY Lymphocytes # 0.7 1.0 - 5.5 09/21 [facility] HEMATOLOGY Basophils # 0.1 0.0 - 0.2 09/21 [facility] HEMATOLOGY Eosinophils # 0.2 0.0 - 0.5 09/21 [facility] HEMATOLOGY Eosinophils 4.2 0.0 - 4.0 09/21 [facility] HEMATOLOGY Segs 72.9 45.0 - 09/21 MH 75.0 [facility] HEMATOLOGY Lymphocytes 12.7 20.0 - 09/21 MH 40.0 [facility] HEMATOLOGY Monocytes 9.0 2.0 - 12.0 09/21 [facility] HEMATOLOGY INR 1.09 0.85 - 09/21 MH 1.17 [facility] HEMATOLOGY PT 14.1 12.0 - 09/21 MH 14.7 /2017 [facility] HEMATOLOGY PTT 25.6 22.9 - 09/21 35.8 /2017 [facility] HEMATOLOGY MPV 7.7 7.4 - 10.4 09/21 [facility] HEMATOLOGY Platelet 244 133 - 450 09/21 [facility] HEMATOLOGY WBC 5.9 3.7 - 10.4 09/21 [facility] HEMATOLOGY MCV 88.6 80.0 - 09/21 98.0 /2017 [facility] HEMATOLOGY Hct 34.3 36.0 - 09/21 48.0 /2017 [facility] HEMATOLOGY RBC 3.87 4.20 - 09/21 5.40 /2017 [facility] HEMATOLOGY RDW 16.2 11.5 - 09/21 14.5 [facility] HEMATOLOGY Hgb 11.3 12.0 - 09/21 16.0 /2017 [facility] HEMATOLOGY MCH 29.2 27.0 - 09/21 31.0 [facility] HEMATOLOGY MCHC 33.0 32.0 - 09/21 36.0 [facility] Pathology Reports No Data Provided for This Section Diagnostic Reports No Data Provided for This Section Consultation Notes No Data Provided for This Section Discharge Summaries No Data Provided for This Section History and Physicals No Data Provided for This Section Vital Signs Vital Sign Value Date Comments Source Respitory Rate 16 09/25/2017 [facility] Systolic (mm Hg) 167 [facility] 95 09/25/[address] [facility] [address] Heart Rate 94 09/25/2017 [facility] Temperature Oral (F) 98.2 F 09/25/2017 [facility] Systolic (mm Hg) 166 09/25/2017 [place] Diastolic (mm Hg) 99 09/25/[address] [facility] [address] Heart Rate 96 09/25/2017 [facility] Respitory Rate 18 09/25/2017 [facility] Temperature Oral (F) 97.5 F 09/25/2017 [place] [facility] Systolic (mm Hg) 149 09/25/2017 [place] Diastolic (mm Hg) 90 09/25/[address] [facility] [address] Respitory Rate 18 09/25/2017 [facility] Heart Rate 97 09/25/2017 [facility] Temperature Oral (F) 98.5 F 09/25/2017 [facility]ast Height 152.4 cm 09/22/2017 [facility] BMI Calculated 24.46 09/22/2017 [facility] Weight 56.818 09/22/2017 [facility] BMI Calculated 24.17 09/21/2017 [facility] Weight 56.136 09/21/2017 [facility] Height 152.4 cm 09/21/2017 [facility] Encounters Location Location Encounter Encounter Reason Attending ADM DC Stat us Source Details Type Number For Provider Date Date Visit [facility] Inpatient [id number] Jovon 09/22 09/25 Zaki Jaime /2017 [facility] Procedures Procedure Code Date Perfomer Comments Source Wedge excision of [id number] 10/30/2015 [facility] Lobectomy of lung [id number] 08/31/2012 [facility] Tonsillectomy [id number] 08/31/1948 [facility] t Assessment and Plan No Data Provided for This Section Plan of Care No Data Provided for This Section Social History Social History Date Source Social History TypeResponse 09/21/2017 [facility] Smoking Status Never smoker; Exposure to Tobacco Smoke None; Cigarette Smoking Last 365 Days No; Reg Smoking Cessation Counseling No entered on: 09/21/17 Family History No Data Provided for This Section Advance Directives No Data Provided for This Section Functional Status No Data Provided for This Section
--- OUTSIDE RECORDS SUMMARY | 2020-07-26 23:11 | XMS REPORT | Continuity of Care Document ---
:1940 Author Organization [facility] t Address [address] [place] [id number] Care Team Providers Name Role Phone Sharpless Primary Care Physician Ajit WYLIE Attending Clinician Alexei CARYE Attending Clinician Unavailable Max Owusu MD Attending Clinician Dayday CAREY Attending Clinician Unavailable Provider Attending Clinician Unavailable Roma Jennings MD Attending Clinician Ghislaine Attending Clinician Spenser Attending Clinician Unavailable CYNDY PEREZ Attending Clinician Unavailable JARRETT AMAYA Attending Clinician Unavailable Wilmer Jaime Attending Clinician CYNDY PEREZ Admitting Clinician Unavailable JARRETT AMAYA Admitting Clinician Unavailable Wilmer Jaime Admitting Clinician Payers Payer Name Policy Type Policy Effective Date Expiration Date Sour ce Number MEDICAREMEDICARE PART [id number] 2004 Venkatesh Handy AND 00:00:00 [facility] [id number] 2003 [facility] M[employer]UAL OF [place] [id number] 2015 Alyce ston OF 00:00:00 [facility] [id number] MEDICAIDMEDICAIDxxxxx [id number] Alyce ston [id number] 2017-PresentM 00:00:00 Met kay edicaid Problems Condition Condition Condition Status Onset Resolution Last Treating Co mments Source Name Details Category Date Date Treatment Clinician Date Hypotensio Hypotensio Disease Active [facility] due [facility] due [facility] 3[facility]17 [facility] drugs 00:[facility]: [facility] 00 [place] Acute Acute Disease Active [facility] blood loss blood loss 3-09 Naida kes - anemia anemia 00:00: Medical 00 [place] Atrial Atrial Disease Active [facility] fibrillati fibrillati 3-09 Naida kes - on with on with 00:00: Medical RVR RVR 00 Center Acute Acute Disease Active [facility] massive massive 3-07 [facility] pulmonary pulmonary 00:00: [facility] oumou embolism embolism 00 Center Acute cor Acute cor Disease Active [facility] pulmonale pulmonale 3-07 [facility] - 00:00: Medical 00 [place] Acute Acute Disease Active [facility] cystitis cystitis 3-07 [facility] - 00:00: Medical 00 [place] (acute [place] (acute Disease Active [facility] kidney kidney 3-07 [facility] - injury) injury) 00:00: Medical 00 [place] Acute Acute Disease Active [facility] hypoxemic hypoxemic 3-06 [facility] - respirator respirator 00:00: Me dical y failure y failure 00 Cent er G91.0 Diagnosis Active 2017-10-02 Mem oria -22 22:12:00 l G91.0 00:00: [place] 00 Active 09/21/2017 [facility] Acute Acute Disease Active [facility] 2-28 [facility] failure failure 00:00: st 00 Acute Acute Disease Active [facility] kidney kidney 2-18 [facility] injury injury 00:00: st 00 Essential Essential Disease Active [facility] ston hypertensi hypertensi 2-18 Me thodi on on 00:00: st 00 Hyperchole Hyperchole Disease Active [place] sterolemia sterolemia 2-18 Me thodi without without 00:00: st hypertrigl hypertrigl 00 yceridemia yceridemia Communicat Problem 2018-01-01 M emoria ing 14:57:17 l hydrocepha Terrence n marty Communicat ing hydrocepha marty 01/01/2018 [facility] Essential Problem 2018-01-01 Me moria (primary) 14:57:17 l hypertensi Terrence n on Essential (primary) hypertensi on 01/01/2018 [facility] Hearing Problem Active 2018-01-01 David jaxon loss 14:57:17 l (finding) Hearing Herm aster loss (finding) Active Problem 01/01/2018 [facility] Hypertensi Problem Active 2018-01-01 M emoria ve 14:57:17 l disorder, Zaki systemic Hypertensi arterial ve (disorder) disorder, systemic arterial (disorder) Active Problem 01/01/2018 [facility] Muscle Problem Active 2018-01-01 Memor ia weakness 14:57:17 l (finding) Muscle April nn weakness (finding) Active Problem 01/01/2018 [facility] Normal Problem Active 2018-01-01 Memor ia pressure 14:57:17 l hydrocepha Normal Herm aster marty pressure (disorder) hydrocepha marty (disorder) Active Problem 01/01/2018 [facility] COMMUNICAT Diagnosis Active 2017-10-02 Memoria ING 22:12:00 l HYDROCEPHA Terrence n MARTY COMMUNICAT ING HYDROCEPHA MARTY Active [facility] Malignant Problem Resolve 2018-01-01 M emoria tumor of d 14:57:17 l lung Bailey (disorder) Malignant tumor of lung (disorder) Resolved Problem 01/01/2018 [facility] (Idiopathi Problem 2018-0 2018-01-01 2018-01-01 Memoria c) normal 2-03 14:57:17 14:57:17 l pressure 04:51: Zaki hydrocepha (Idiopathi 01 marty c) normal pressure hydrocepha marty 10/03/2017 01/01/2018 [facility] Allergies, Adverse Reactions, Alerts Allergy Allergy Status Severity Reaction(s) Onset Inactive Treating Comm ents Source Name Type Date Date Clinician sulfa sulfa Active Memoria drugs drugs l Bailey contrast contrast Active Memori a media media l (iodine- (iodine- Terrence n based)<s based)<s up>1</coley up>1</coley p> p> Social History Social Habit Start Date Stop Date Quantity Comments Source Sex Assigned At [facility] Exposure to Not sure [facility] Metho dist SARS-CoV-2 (event) Tobacco use and 2020-07-24 2020-07-24 Never used Edwin Helm ethodist exposure 00:00:00 00:00:00 Alcohol intake 2020-07-24 2020-07-24 Current Edwin Faustin thodist 00:00:00 00:00:00 non-drinker of alcohol (finding) Smoking Status Start Date Stop Date Source Social History [facility] Medications Ordered Filled Start Stop Current Ordering Indication Dosage Frequency Signature Comments Components Source Medication Medication Date Date Medication? Clinician (SIG) Name Name apixaban 2019-08 No Q.5D Take by [place] (ELIQUIS) 09-23 mouth 2 Meth livier mg tablet 12:01: 00:00 (two) st 25 :00 times a day. fluticasone 2018-08 Yes 2{spray Q.5D 2 sprays [place] propionate 2-02 } by Each Method i (FLONASE) 15:35: Nare route st 50 50 2 (two) mcg/actuati times a on nasal day. spray sucralfate 2018-08 Yes 1g Q.25D Take 1 g [place] (CARAFATE) 2-02 by mouth 4 Met hodi 1 gram 15:35: (four) st tablet 50 times a day. pantoprazol 2018-08 Yes 40mg QD Take 40 mg [facility] e 2-02 by mouth Methodi (PROTONIX) 15:35: daily. st 40 MG EC 50 tablet docusate 2018-08 Yes 100mg Q.5D Take 100 [place] sodium 2-02 mg by [facility] (COLACE) 15:35: mouth 2 st 100 MG 49 (two) capsule times a day. bisacodyl 2018-08 Yes 10mg Q24H Insert 10 Alyce ston (FLEET) 10 2-02 mg into Method i mg/30 mL 15:35: the rectum st enema 49 daily as needed for constipati on. aspirin 325 2018-08- No 325mg QD Take 325 [facility] MG tablet 2-02 12-02 mg by [facility]i 15:25: 00:[address] 52 :00 daily. carvedilol 2018-08 Yes 12.5mg Q.5D Take 12.5 [facility] (COREG) 2-02 mg by [facility]i 12.5 MG 15:22: mouth 2 st tablet 32 (two) times a day. polyethylen 2018-08 Yes 17g QD Take 17 g [place] e glycol 2-02 by mouth [facility] (MIRALAX) 15:22: daily. st 17 gram 32 packet promethazin 2018-08 Yes 25mg Q6H Take 25 mg [facility] e 2-02 by mouth [facility] (PHENERGAN) 15:22: every 6 st 25 MG 32 (six) tablet hours as needed for nausea or vomiting. aspirin 81 Yes 81mg QD Take [address] MG EC 3-22 by mouth [facility] - tablet 18:42: daily. [facility] Center carvedilol Yes 6.25mg Take 6.[address] (COREG) 3-22 mg by [facility] - 6.25 MG 18:42: mouth 2 Medical tablet 49 (two) Center times daily with breakfast and dinner. magnesium Yes 400mg QD Take [address] oxide 3-22 mg by [facility] - (MAG-OX) 18:42: mouth Medical 400 mg 49 daily. Center tablet carbidopa-l Yes 1{tbl} QD Take [address] evodopa 3-22 tablet by [facility] - (SINEMET) 18:42: mouth Medical 25-100 mg 49 daily. Center per tablet enoxaparin Yes 80mg Q24H Inject 0.[address] (LOVENOX) 3-15 mLs (80 mg Luke s - 80 mg/0.8 00:00: total) Medica l [facility]. sennosides- Yes 2{tbl} 2 tablets. [facility] docusate 2- [facility] sodium 00:00: st (SENEXON-S) 00 8.6-50 mg per tablet Ibuprofen Yes 400 mg = 1 Me moria 400 MG Oral 1-26 tab, PO, l Tablet 16:23: Q8H, PRN Bailey 00 Pain Score 6-10, 0 Refill(s) Ibuprofen Yes 400 mg = 1 Me moria 400 MG Oral 1-26 tab, PO, l Tablet 16:23: Q8H, PRN Zaki 00 Pain Score 6-10, 0 Refill(s) carvedilol No Notes: Sosa peters 1-24 Give with l 15:00: food. Bailey 00 (Same As: Coreg) Mag-Ox 400 No Notes: Memor ia 1-24 (Same as: l 15:00: Mag-Ox Bailey 00 400) Magnesium oxide [id number] g elemental magnesium Dose=____m g magnesium oxide (___mg elemental magnesium) carbidopa-l No Notes: David jaxon evodopa -24 Take with l 15:00: milk or Zaki 00 food. (Same As: Sinemet) carvedilol No Notes: Memor ia -24 Give with l 15:00: food. Bailey 00 (Same As: Coreg) Mag-Ox 400 No Notes: Memor ia 1-24 (Same as: l 15:00: Mag-Ox Zaki 00 400) Magnesium oxide [id number] g elemental magnesium Dose=____m g magnesium oxide (___mg elemental magnesium) carbidopa-l No Notes: David jaxon evodopa -24 Take with l 15:00: milk or Zaki 00 food. (Same As: Sinemet) Reglan No Notes: Memoria 1-24 (Same as: l 03:00: Reglan) Bailey 00 Take 30 min before meals Reglan No Notes: Memoria 1-24 (Same as: l 03:00: Reglan) Zaki 00 Take 30 min before meals melatonin No Notes: Memori a 1-23 (Same as: l 23:44: Melatonin) Zaki 00 melatonin No Notes: Memori a 1-23 (Same as: l 23:44: Melatonin) Bailey 00 Motrin No Notes: Memoria 1-23 (Same as: l 22:14: Motrin) Bailey 00 "Do Not Crush" Give with food. Motrin No Notes: Memoria 1-23 (Same as: l 22:14: Motrin) Zaki 00 "Do Not Crush" Give with food. Ondansetron No 4 mg, Memor ia 09-22 Route: l 21:09: IVP, ONCE, Dosing Weight 56.136, kg, PRN Nausea & Vomiting, Start date: 09/22/17 15:09:00 [employer] WORK[employer] Diphenhydra 2018-0 No 12.5 mg, Me moria mine 09-22 Route: l 21:09: IVP, Drug Zaki 00 form: INJ, Q6H, Dosing Weight 56.136, kg, PRN Itching, Start date: 09/22/17 15:09:00 [employer] WORK[employer], Duration: 30 day, Stop date: 10/22/17 15:08:00 [employer] WORKER Albuterol 2018-0 No 2.49 mg, David jaxon 0.83 MG/ML 09-22 Route: l Inhalant 21:09: NEB, Bailey Solution 00 Q20Min, Dosing Weight 56.136, kg, PRN Wheezing, Priority: STAT, Start date: 09/22/17 15:09:00 [employer] WORKER, Duration: 30 day, Stop date: 10/22/17 15:08:00 [employer] WORKER Hydralazine 2018-0 No 10 mg, David jaxon 09-22 Route: l 21:09: IVP, Bailey 00 Q20Min, Dosing Weight 56.136, kg, PRN Elevated BP, Start date: 09/22/17 15:09:00 [employer] WORKER, Duration: 2 doses or times, Stop date: Limited # of times Flumazenil 2018-0 No 0.2 mg, David jaxon 09-22 Route: l 21:09: IVP, PRN, Bailey 00 Dosing Weight 56.136, kg, PRN Benzodiaze pine Reversal, Initial dose, Start date: 09/22/17 15:09:00 [employer] WORKER, Duration: 30 day, Stop date: 10/22/17 15:08:00 [employer] WORKER Naloxone 2018-0 No 0.4 mg, Memori a 09-22 Route: l 21:09: IVP, Zaki 00 Q2MIN, Dosing Weight 56.136, kg, PRN Narcotic Reversal, Start date: 09/22/17 15:09:00 [employer] WORKER, Duration: 8 doses or times, Stop date: Limited # of times Hydromorpho 2018-0 No 0.5 mg, Mem oria ne 09-22 Route: l 21:09: IVP, Zaki 00 Q5Min, Dosing Weight 56.136, kg, PRN Pain Score 7-10, Start date: 09/22/17 15:09:00 [employer] WORKER, Duration: 4 doses or times, Stop date: Limited # of times Fentanyl 2018-0 No 50 Memoria 09-22 microgram, l 21:09: Route: Zaki 00 IVP, Q5Min, Dosing Weight 56.136, kg, PRN Pain Score 7-10, Priority: Routine, Start date: 09/22/17 15:09:00 [employer] WORKER, Duration: 2 doses or times, Stop date: Limited # of times Oxycodone 2018-0 No 5 mg, Memoria 09-22 Route: PO, l 21:09: Drug form: Zaki 00 TAB, Q4H, Dosing Weight 56.136, kg, PRN Pain Score 4-6, Start date: 09/22/17 15:09:00 [employer] WORKER, Duration: 30 day, Stop date: 10/22/17 15:08:00 [employer] WORKER Acetaminoph 2018-0 No 1,000 mg, M emoria en 09-22 Route: PO, l 21:09: Drug form: Bailey 00 TAB, ONCE, Dosing Weight 56.136, kg, PRN Pain Score 1-3, Start date: 09/22/17 15:09:00 [employer] Ketorolac 2018-0 No 30 mg, Memori a 09-22 Route: l 21:09: IVP, ONCE, Dosing Weight 56.136, kg, Start date: 09/22/17 15:09:00 [employer] WORKER, Stop date: 09/22/17 15:09:00 [employer] WORKER Labetalol 2017-0 No 10 mg, Memori a 09-22 Route: l 21:09: IVP, Zaki 00 Q5Min, Dosing Weight 56.136, kg, PRN Elevated BP, Start date: 09/22/17 15:09:00 [employer] WORKER, Duration: 5 doses or times, Stop date: Limited # of times Ondansetron 2017-0 No 4 mg, Memor ia 09-22 Route: l 21:09: IVP, ONCE, Dosing Weight 56.136, kg, PRN Nausea & Vomiting, Start date: 09/22/17 15:09:00 [employer] WORK[employer] Diphenhydra 2018-0 No 12.5 mg, Me moria mine 09-22 Route: l 21:09: IVP, Drug form: INJ, Q6H, Dosing Weight 56.136, kg, PRN Itching, Start date: 09/22/17 15:09:00 [employer] WORKER, Duration: 30 day, Stop date: 10/22/17 15:08:00 [employer] WORKER Albuterol 2018-0 No 2.49 mg, David jaxon 0.83 MG/ML 09-22 Route: l Inhalant 21:09: NEB, Bailey Solution 00 Q20Min, Dosing Weight 56.136, kg, PRN Wheezing, Priority: STAT, Start date: 09/22/17 15:09:00 [employer] WORKER, Duration: 30 day, Stop date: 10/22/17 15:08:00 [employer] WORKER Hydralazine 2018-0 No 10 mg, David jaxon 09-22 Route: l 21:09: IVP, Zaki 00 Q20Min, Dosing Weight 56.136, kg, PRN Elevated BP, Start date: 09/22/17 15:09:00 [employer] WORKER, Duration: 2 doses or times, Stop date: Limited # of times Flumazenil 2018-0 No 0.2 mg, David jaxon 09-22 Route: l 21:09: IVP, PRN, Zaki 00 Dosing Weight 56.136, kg, PRN Benzodiaze pine Reversal, Initial dose, Start date: 09/22/17 15:09:00 [employer] WORKER, Duration: 30 day, Stop date: 10/22/17 15:08:00 [employer] WORKER Naloxone 2018-0 No 0.4 mg, Memori a 09-22 Route: l 21:09: IVP, Zaki 00 Q2MIN, Dosing Weight 56.136, kg, PRN Narcotic Reversal, Start date: 09/22/17 15:09:00 [employer] WORKER, Duration: 8 doses or times, Stop date: Limited # of times Hydromorpho 2018-0 No 0.5 mg, Mem oria ne 09-22 Route: l 21:09: IVP, Zaki 00 Q5Min, Dosing Weight 56.136, kg, PRN Pain Score 7-10, Start date: 09/22/17 15:09:00 [employer] WORKER, Duration: 4 doses or times, Stop date: Limited # of times Fentanyl 2018-0 No 50 Memoria 09-22 microgram, l 21:09: Route: Zaki 00 IVP, Q5Min, Dosing Weight 56.136, kg, PRN Pain Score 7-10, Priority: Routine, Start date: 09/22/17 15:09:00 [employer] WORKER, Duration: 2 doses or times, Stop date: Limited # of times Oxycodone 2018-0 No 5 mg, Memoria 09-22 Route: PO, l 21:09: Drug form: Bailey 00 TAB, Q4H, Dosing Weight 56.136, kg, PRN Pain Score 4-6, Start date: 09/22/17 15:09:00 [employer] WORKER, Duration: 30 day, Stop date: 10/22/17 15:08:00 [employer] WORKER Acetaminoph 2018-0 No 1,000 mg, M emoria en 09-22 Route: PO, l 21:09: Drug form: Bailey 00 TAB, ONCE, Dosing Weight 56.136, kg, PRN Pain Score 1-3, Start date: 09/22/17 15:09:00 [employer] WORKER Ketorolac 2018-0 No 30 mg, Memori a 09-22 Route: l 21:09: IVP, ONCE, Zaki Dosing Weight 56.136, kg, Start date: 09/22/17 15:09:00 [employer] WORKER, Stop date: 09/22/17 15:09:00 [employer] WORKER Labetalol 2018-0 No 10 mg, Memori a 09-22 Route: l 21:09: IVP, Bailey 00 Q5Min, Dosing Weight 56.136, kg, PRN Elevated BP, Start date: 09/22/17 15:09:00 [employer] WORKER, Duration: 5 doses or times, Stop date: Limited # of times Morphine 2018-0 No 1 mg, Memoria 09-22 Route: l 20:52: IVP, Q2H, Zaki Dosing Weight 56.136, kg, PRN Pain Score 7-10, Start date: 09/22/17 14:52:00 [employer] WORKER, Duration: 30 day, Stop date: 10/22/17 14:51:00 [employer] WORKER tramadol 2018-0 No 100 mg, Memori a hydrochlori 09-22 Route: PO, l de 50 MG 20:52: Drug form: Her hackett Oral Tablet 00 TAB, Q6H, Dosing Weight 56.136, kg, PRN Pain Score 4-6, Start date: 09/22/17 14:52:00 [employer] WORKER, Duration: 30 day, Stop date: 10/22/17 14:51:00 [employer] WORKER Morphine 2018-0 No 1 mg, Memoria 09-22 Route: l 20:52: IVP, Q2H, Dosing Weight 56.136, kg, PRN Pain Score 7-10, Start date: 09/22/17 14:52:00 [employer] WORKER, Duration: 30 day, Stop date: 10/22/17 14:51:00 [employer] WORKER tramadol 2018-0 No 100 mg, Memori a hydrochlori 09-22 Route: PO, l de 50 MG 20:52: Drug form: Her hackett Oral Tablet 00 TAB, Q6H, Dosing Weight 56.136, kg, PRN Pain Score 4-6, Start date: 09/22/17 14:52:00 [employer] WORKER, Duration: 30 day, Stop date: 10/22/17 14:51:00 [employer] WORKER ondansetron No Route: IV, Memoria (ANES) 09-22 Drug form: l 20:44: INJ, ONCE, Stop date: 09/22/17 14:44:00 [employer] WORK[employer] glycopyrrol 2017-0 No Route: IV, Memoria ate (ANES) 09-22 Drug form: l 20:44: INJ, ONCE, Stop date: 09/22/17 14:44:00 [employer] WORK[employer] neostigmine 0 No Route: IV, Memoria (ANES) 09-22 Drug form: l 20:44: INJ, ONCE, Stop date: 09/22/17 14:44:00 [employer] WORK[employer] ondansetron 2017-0 No Route: IV, Memoria (ANES) 09-22 Drug form: l 20:44: INJ, ONCE, Stop date: 09/22/17 14:44:00 [employer] WORK[employer] glycopyrrol 2017-0 No Route: IV, Memoria ate (ANES) 09-22 Drug form: l 20:44: INJ, ONCE, Stop date: 09/22/17 14:44:00 [employer] WORK[employer] neostigmine 2017-0 No Route: IV, Memoria (ANES) 09-22 Drug form: l 20:44: INJ, ONCE, Stop date: 09/22/17 14:44:00 [employer] dexamethaso 2017-0 No Route: IV, Memoria ne (ANES) 09-22 Drug form: l 20:10: INJ, ONCE, Stop date: 09/22/17 14:10:00 [employer] WORK[employer] phenylephri 2018-0 No Route: IV, Memoria ne (ANES) - Drug form: l 20:10: INJ, ONCE, Stop date: 09/22/17 14:10:00 [employer] WORK[employer] dexamethaso 2017-0 No Route: IV, Memoria ne (ANES) 09-22 Drug form: l 20:10: INJ, ONCE, Stop date: 09/22/17 14:10:00 [employer] WORK[employer] phenylephri 2017-0 No Route: IV, Memoria ne (ANES) 09-22 Drug form: l 20:10: INJ, ONCE, Stop date: 09/22/17 14:10:00 [employer] WORK[employer] fentaNYL 2018-0 No Route: IV, Mem oria (ANES) 09-22 Drug form: l 20:05: INJ, ONCE, Stop date: 09/22/17 14:05:00 [employer] WORK[employer] lidocaine 2018-0 No Route: IV, Me moria (ANES) 09-22 Drug form: l 20:05: INJ, ONCE, Stop date: 09/22/17 14:05:00 [employer] WORK[employer] ceFAZolin 2017-0 No Route: IV, Me moria (ANES) - Drug form: l 20:05: INJ, ONCE, Stop date: 09/22/17 14:05:00 [employer] WORK[employer] rocuronium 2018-0 No Route: IV, M emoria (ANES) 09-22 Drug form: l 20:05: INJ, ONCE, Stop date: 09/22/17 14:05:00 [employer] WORKER propofol 2018-0 No Route: IV, Mem oria (ANES) 1 Drug form: l 20:05: INJ, ONCE, Stop date: 09/22/17 14:05:00 [employer] WORK[employer] fentaNYL 2018-0 No Route: IV, Mem oria (ANES) 1- Drug form: l 20:05: INJ, ONCE, Stop date: 09/22/17 14:05:00 [employer] WORKER lidocaine 2018-0 No Route: IV, Me moria (ANES) 1- Drug form: l 20:05: INJ, ONCE, Stop date: 09/22/17 14:05:00 [employer] WORK[employer] ceFAZolin 2017-0 No Route: IV, moria (ANES) 09-22 Drug form: l 20:05: INJ, ONCE, Bailey 00 Stop date: 09/22/17 14:05:00 [employer] WORKER rocuronium 2017-0 No Route: IV, Alicja emoria (ANES) 09-22 Drug form: l 20:05: INJ, ONCE, Zaki Stop date: 09/22/17 14:05:00 [employer] WORKER propofol 2017-0 No Route: IV, Mem oria (ANES) 09-22 Drug form: l 20:05: INJ, ONCE, Zaki 00 Stop date: 09/22/17 14:05:00 [employer] WORKER Lactated 0 No Route: IV, Mem oria Ringers - Total l Injection 19:05: Volume: April nn IV (ANES) 00 1,000, 1000 mL Start date: 09/22/17 13:05:00 [employer] WORKER, Stop date: 09/22/17 14:05:00 [employer] WORKER Lactated 0 No Route: IV, Mem oria Ringers 09-22 Total l Injection 19:05: Volume: April nn IV (ANES) 00 1,000, 1000 mL Start date: 09/22/17 13:05:00 [employer] WORKER, Stop date: 09/22/17 14:05:00 [employer] WORKER methylene 2017-0 No Notes: Memori a blue 10 09-22 (Same as l mg/mL 17:00: :ProvayBlu Terrence n injectable 00 e) solution MEDICATION WASTE Product Size: 50 mg Product Wasted: ___ mg methylene No Notes: Memori a blue 10 09-22 (Same as l mg/mL 17:00: :ProvayBlu Terrence n injectable 00 e) solution MEDICATION WASTE Product Size: 50 mg Product Wasted: ___ mg Calcium 0 No 1,000 mL, Memor ia Chloride 09-22 Rate: 25 l 0.0014 15:04: ml/hr, Bailey MEQ/ML / 00 Infuse Potassium over: 40 Chloride hr, Route: 0.004 IV, Dosing MEQ/ML / Weight Sodium 56.136 kg, Chloride Total 0.103 Volume: MEQ/ML / 1,000, Sodium Start Lactate date: 0.028 09/22/17 MEQ/ML 9:04:00 Injectable [employer] WORKER, Solution Duration: 30 day, Stop date: 10/22/17 9:03:00 [employer] WORKER, 1.56, m2 Calcium 2018-0 No 1,000 mL, Memor ia Chloride 09-22 Rate: 25 l 0.0014 15:04: ml/hr, Bailey MEQ/ML / 00 Infuse Potassium over: 40 Chloride hr, Route: 0.004 IV, Dosing MEQ/ML / Weight Sodium 56.136 kg, Chloride Total 0.103 Volume: MEQ/ML / 1,000, Sodium Start Lactate date: 0.028 09/22/17 MEQ/ML 9:04:00 Injectable [employer] WORKER, Solution Duration: 30 day, Stop date: 10/22/17 9:03:00 [employer] WORKER, 1.56, m2 Carbidopa 2018-0 Yes 1 tab, PO, Me moria 25 MG / 1-22 BID, 0 l Levodopa 20:32: Refill(s) Herm aster 100 MG Oral 00 Tablet Carbidopa 2018-0 Yes 1 tab, PO, Me moria 25 MG / -22 BID, 0 l Levodopa 20:32: Refill(s) Herm aster 100 MG Oral 00 Tablet Metoclopram 2018-0 Yes 5 mg = 1 Me moria rachid 5 MG 1-22 tab, PO, l Oral Tablet 20:31: QID-Before Bailey [Reglan] 00 Meals, 0 Refill(s) magnesium 2018-0 Yes 400 mg = 1 Me moria oxide 400 -22 tab, PO, l mg oral 20:31: Daily, 0 Terrence n tablet 00 Refill(s) melatonin 5 2018-0 Yes 5 mg = 1 Me moria mg oral -22 tab, PO, l tablet 20:31: Bedtime, Zaki 00 PRN for insomnia, # 60 tab, 0 Refill(s) carvedilol 2018-0 Yes 6.25 mg = Me moria 6.25 mg -22 1 tab, PO, l oral tablet 20:31: BID, 0 Herm aster 00 Refill(s) Metoclopram 2018-0 Yes 5 mg = 1 Me moria rachid 5 MG 1-22 tab, PO, l Oral Tablet 20:31: QID-Before Zaki [Reglan] 00 Meals, 0 Refill(s) magnesium 2018-0 Yes 400 mg = 1 Me moria oxide 400 1-22 tab, PO, l mg oral 20:31: Daily, 0 Terrence n tablet 00 Refill(s) melatonin 5 Yes 5 mg = 1 Me moria mg oral 1-22 tab, PO, l tablet 20:31: Bedtime, Bailey 00 PRN for insomnia, # 60 tab, 0 Refill(s) carvedilol Yes 6.25 mg = Me moria 6.25 mg 1-22 1 tab, PO, l oral tablet 20:31: BID, 0 Herm aster 00 Refill(s) MAGNESIUM Yes 400mg QD Take 400 [address] [address] OXIDE ORAL 1-22 mg by [facility] 00:00: mouth st 00 daily. Vital Signs Vital Name Observation Time Observation Value Comments Source Body temperature 2020-07-24 11:31:00 36.5 [place] [facility] Body weight 2020-07-24 11:31:00 41.005 kg [facility] BMI 2020-07-24 11:31:00 17.08 kg/m2 [facility] Systolic blood 2019-10-05 11:26:00 143 mm[Hg] [facility] pressure Diastolic blood 2019-10-05 11:26:00 80 mm[Hg] [facility] pressure Heart rate 2019-10-05 11:26:00 88 /min [facility] Respiratory rate 2019-10-05 11:26:00 16 /min [facility] Body height 2019-10-05 11:26:00 154.9 cm [facility] Oxygen saturation in 2019-10-05 11:26:00 98 /min [facility] Arterial blood by Pulse oximetry Respitory Rate 2017-09-25 13:37:00 [facility] Systolic (mm Hg) 2017-09-25 13:37:00 David rial [facility] Diastolic (mm Hg) 2017-09-25 13:37:00 [facility] Heart Rate 2017-09-25 13:37:00 [facility] Temperature Oral (F) 2017-09-25 13:37:00 98.2 F [facility] Systolic (mm Hg) 2017-09-25 10:00:00 David [facility] Diastolic (mm Hg) 2017-09-25 10:00:00 [facility] Heart Rate 2017-09-25 10:00:00 [facility] Respitory Rate 2017-09-25 10:00:00 [facility] Temperature Oral (F) 2017-09-25 10:00:00 97.5 F [facility] Systolic (mm Hg) 2017-09-25 06:00:00 David rial Zaki Diastolic (mm Hg) 2017-09-25 06:00:00 Mem o[facility]aki Respitory Rate 2017-09-25 06:00:00 [facility] Heart Rate 2017-09-25 06:00:00 [facility] Temperature Oral (F) 2017-09-25 06:00:00 98.5 F [facility] Height 2017-09-22 23:04:00 152.4 cm [facility] BMI Calculated 2017-09-22 23:04:00 [facility] Weight 2017-09-22 23:04:00 [facility] BMI Calculated 2017-09-21 19:57:00 [facility] Weight 2017-09-21 19:57:00 [facility] Height 2017-09-21 19:57:00 152.4 cm [facility] Procedures Procedure Date / Time Performed Performing Clinician [facility] e CT CHEST WO CONTRAST 2020-07-19 13:52:20 Lily Cuenca RAD ONC COURSE SUMMARY 2019-10-05 18:00:07 Provider, Justice Maher RAD ONC DAILY TREATMENT 2019-10-05 11:06:04 Provider, Unknown Venkatesh Maher RAD ONC DAILY TREATMENT 2019-10-03 11:15:36 Provider, Unknown Venkatesh galvan [facility] ONC DAILY TREATMENT 2019-09-30 11:08:42 Provider, Unknown Venkatesh galvan [facility] ONC DAILY TREATMENT 2019-09-28 11:10:59 Provider, Unknown Venkatesh aglvan [facility] ONC DAILY TREATMENT 2019-09-26 11:35:45 Provider, Unknown Venkatesh Maher NM LUNG QUANTITATIVE 2019-08-05 12:15:00 Nader Owusu DIFFERENTIAL FUNCTION VENTILATION / PERFUSION PET CT SKULL BASE TO MID 2019-08-04 13:01:41 Nader Owusu THIGH Wedge excision of lung 2015-10-30 06:00:00 Sosa iatutu [facility] Lobectomy of lung 2012-08-31 06:00:00 [facility] Tonsillectomy 1948-08-31 00:00:00 [facility] Plan of Care Planned Activity Planned Date Details Comments Source Future Scheduled 2020-05-01 INFLUENZA VACCINE (#1) [facility] 00:[facility]:00 [code = INFLUENZA Medical Ce nter VACCINE (#1)] Future Scheduled 2020-03-31 INFLUENZA VACCINE [place] [facility] 00:00:00 [code = INFLUENZA VACCINE] Future Scheduled 2005-07-[address] [facility] Test 00:00:00 WELLNESS (YEAR 2 or Medical Center FIRST YEAR if no IPPE) [code = MEDICARE ANNUAL WELLNESS (YEAR 2 or FIRST YEAR if no IPPE)] Future Scheduled 2004 PNEUMOCOCCAL 65+ YRS [facility] - Test 00:00:00 (1 of 1 - Medical Center [id number] PCV13) [code = PNEUMOCOCCAL 65+ YRS (1 of 1 - [id number] PCV13)] Future Scheduled 2004 65+ PNEUMOCOCCAL [facility] Test 00:00:00 VACCINE (1 of 1 - PPSV23) [code = 65+ PNEUMOCOCCAL VACCINE (1 of 1 - PPSV23)] Future Scheduled 1989 SHINGLES VACCINES (#1) [facility] Test 00:00:00 [code = SHINGLES VACCINES (#1)] Encounters Start End Encounter Admission Attending Care Care Encounter Source Date/Time Date/Time Type Type Clinicians Facility Department ID 2020-07-24 2020-07-24 Outpatient [facility] [id number] [facility] 00:00:00 00:00:00 LILY [address] 2020-07-19 2020-07-19 Outpatient [facility] [id number] [facility] 00:00:00 00:00:00 LILY [address] 2019-10-05 2019-10-05 Outpatient [facility] [id number] [facility] 00:00:00 00:00:[address] 2019-10-03 2019-10-03 Outpatient [facility] [id number] [facility] 00:00:00 00:00:[address] 2019-10-03 2019-10-03 Outpatient [facility] [id number] [facility] 00:00:00 00:00:[address] 2019-09-30 2019-09-30 Outpatient CECILIO, [facility] [id number] [place] 00:00:00 00:00:[address] 2019-09-28 2019-09-28 Outpatient CECILIO, [facility] [id number] [facility] 00:00:00 00:00:[address] 2019-09-26 2019-09-26 Outpatient CECILIO, [facility] [id number] [facility] 00:00:00 00:00:[address] 2019-09-14 2019-09-14 Outpatient CECILIO, [facility] [id number] [facility] 00:00:00 00:00:[address] 2019-09-01 2019-09-01 Outpatient CECILIO, [facility] [id number] [facility] 00:00:00 00:00:[address] 2019-08-05 2019-08-05 Outpatient CECILIO, [facility] [id number] [place] 00:00:00 00:00:[address] 2019-08-04 2019-08-04 Outpatient CECILIO, [facility] [id number] [facility] 00:00:00 00:00:[address] 2019-08-01 2019-08-02 Outpatient CECILIO, [facility] [id number] [facility] 00:00:00 00:00:[address] 2019-08-01 2019-08-01 Outpatient CECILIO, [facility] [id number] [facility] 00:00:00 00:00:[address] 2019-07-22 2019-07-22 Outpatient CUENCA, [facility] [id number] [place] 00:00:00 00:00:00 LILY [address] 2019-07-22 2019-07-22 Outpatient CUENCA, [facility] [id number] [facility] 00:00:00 00:00:00 LILY [address] 2017-09-22 2017-09-25 Outpatient KATT Jaime SE [id number] 08:51:00 12:19:00 Jovon Guillen 2017-09-22 2017-09-25 Outpatient KATT Jaime [facility] [id number] 08:51:00 12:19:00 Jovon 00 Wilmer Results Test Description Test Time Test Comments Results Result Sourc e Comments CT Chest Wo 2020-07-01 Edwin Mccormick Contrast [address] 15:07:34 Incoming - 07/19/2020 3:10 PM CSTEXAMINATION: CT CHEST WO CONTRASTCLINICAL HISTORY: Malignant neoplasm of unspecified part of unspecified bronchus or lung, restage lung cancerCOMPARISON: CT chest 07/22/2019TECHNIQUE: CT of the chest without intravenous contrast. Absence of contrast decreases sensitivity for detection of focal lesions and vascular pathology. CT imaging was performed with iterative reconstruction techniques and/or automated exposure control to reduce radiation dose. FINDINGS:Lungs and airways: Complete left lung collapse with abrupt cut off/soft tissue density in the left mainstem bronchus. Interval growth of right lower lobe ill-defined spiculated masslike opacity now measuring 19 x 16 mm (previously 8 mm). Pleura: Trace left pleural effusion with thickening of the surrounding pleura. No pneumothorax. Cardiovascular: Thoracic aorta is atherosclerotic, nonaneurysmal. Coronary artery calcifications.Medias tinum and lymph nodes: Leftward mediastinal shift. Enlarging anterior mediastinal lymph nodes just to the left of the ascending aorta the largest now measuring 1.3 x 1.1 cm, previously measuring 0.5 x 0.3 cm. Upper abdomen: No suspicious abnormalities.Musculo skeletal: Degenerative changes of the osseous structures. Thoracic kyphosis. Diffuse osseous demineralization. IMPRESSION:1.Complete left lung collapse with leftward mediastinal shift. There is abrupt cut off/soft tissue density in the left mainstem bronchus. This could be secondary to a large obstructing mucous plug although neoplasm cannot be excluded. Further evaluation with bronchoscopy is recommended. Interval growth of right lower lobe ill-defined spiculated masslike opacity now measuring 19 x 16 mm (previously 8 mm). Enlarging anterior mediastinal lymph nodesCENTERVILLE-[id number] ctated and approved by rn radiology/fellow: Saba Sims M.D.I, Saroj Rogers MD, personally reviewed the images and resident's/fellow's findings and agree with the final report. RAD ONC COURSE SUMMARY 2019-10-05 18:00:07 Test Item Value Reference Range Interpretation Comme nts Course ID (test code = 5706) C2 Course Start Date (test code = 5707) 2019-08-10 @18:34 Treatment Elapsed Days (test code = 5709) 9 Course Intent (test code = 5686) Curative Treatment Dates (test code = 5685) Course End Date: 2019-10-05 @17:59First Treatment Date: 2019-09-26 @11:30Last Treatment Date: 2019-10-05 @11:03 Reference Point ID (test code = 5710) Rt Lung SBRT Dosage Given to Date in Gy (test code = 50 5711) Plan ID (test code = 5713) Rt Lung SBRT Plan Name (test code = 5714) Rt Lung SBRT Fractions Treated to Date (test code = 5 of 5 5715) Prescribed Dose Per Fraction in Gy (test 10 code = 5716) Prescription Dose in cGy (test code = 5000 5717) [facility] [id number] 11:06:04 Test Item Value Reference Range Interpretation Comments Course ID (test code = C2 5706) Course Start Date (test 2019-08-10 @18:34 code = 5707) Treatment Elapsed Days 9 (test code = 5709) Course Intent (test code Curative = 5686) Treatment Dates (test First Treatment Date: code = 5685) 2019-09-26 @11:30Last Treatment Date: 2019-10-05 @11:03 Reference Point ID (test Rt Lung SBRT code = 5710) Dosage Given to Date in 50 Gy (test code = 5711) Session Dosage Given in 10 Gy (test code = 5712) Plan ID (test code = Rt Lung SBRT 5713) Plan Name (test code = Rt Lung SBRT 5714) Fractions Treated to 5 of 5 Date (test code = 5715) Prescribed Dose Per 10 Fraction in Gy (test code = 5716) Prescription Dose in cGy 5000 (test code = 5717) [facility] [id number] 11:15:36 Test Item Value Reference Range Interpretation Comments Course ID (test code = C2 5706) Course Start Date (test 2019-08-10 @18:34 code = 5707) Treatment Elapsed Days 7 (test code = 5709) Course Intent (test code Curative = 5686) Treatment Dates (test First Treatment Date: code = 5685) 2019-09-26 @11:30Last Treatment Date: 2019-10-03 @11:13 Reference Point ID (test Rt Lung SBRT code = 5710) Dosage Given to Date in 40 Gy (test code = 5711) Session Dosage Given in 10 Gy (test code = 5712) Plan ID (test code = Rt Lung SBRT 5713) Plan Name (test code = Rt Lung SBRT 5714) Fractions Treated to 4 of 5 Date (test code = 5715) Prescribed Dose Per 10 Fraction in Gy (test code = 5716) Prescription Dose in cGy 5000 (test code = 5717) [facility] [id number] 11:08:42 Test Item Value Reference Range Interpretation Comments Course ID (test code = C2 5706) Course Start Date (test 2019-08-10 @18:34 code = 5707) Treatment Elapsed Days 4 (test code = 5709) Course Intent (test code Curative = 5686) Treatment Dates (test First Treatment Date: code = 5685) 2019-09-26 @11:30Last Treatment Date: 2019-09-30 @11:06 Reference Point ID (test Rt Lung SBRT code = 5710) Dosage Given to Date in 30 Gy (test code = 5711) Session Dosage Given in 10 Gy (test code = 5712) Plan ID (test code = Rt Lung SBRT 5713) Plan Name (test code = Rt Lung SBRT 5714) Fractions Treated to 3 of 5 Date (test code = 5715) Prescribed Dose Per 10 Fraction in Gy (test code = 5716) Prescription Dose in cGy 5000 (test code = 5717) [facility] [id number] 11:10:59 Test Item Value Reference Range Interpretation Comments Course ID (test code = C2 5706) Course Start Date (test 2019-08-10 @18:34 code = 5707) Treatment Elapsed Days 2 (test code = 5709) Course Intent (test code Curative = 5686) Treatment Dates (test First Treatment Date: code = 5685) 2019-09-26 @11:30Last Treatment Date: 2019-09-28 @11:08 Reference Point ID (test Rt Lung SBRT code = 5710) Dosage Given to Date in 20 Gy (test code = 5711) Session Dosage Given in 10 Gy (test code = 5712) Plan ID (test code = Rt Lung SBRT 5713) Plan Name (test code = Rt Lung SBRT 5714) Fractions Treated to 2 of 5 Date (test code = 5715) Prescribed Dose Per 10 Fraction in Gy (test code = 5716) Prescription Dose in cGy 5000 (test code = 5717) [facility] [id number] 11:35:45 Test Item Value Reference Range Interpretation Comments Course ID (test code = C2 5706) Course Start Date (test 2019-08-10 @18:34 code = 5707) Treatment Elapsed Days 0 (test code = 5709) Course Intent (test code Curative = 5686) Treatment Dates (test First Treatment Date: code = 5685) 2019-09-26 @11:30Last Treatment Date: 2019-09-26 @11:32 Reference Point ID (test Rt Lung SBRT code = 5710) Dosage Given to Date in 10 Gy (test code = 5711) Session Dosage Given in 10 Gy (test code = 5712) Plan ID (test code = Rt Lung SBRT 5713) Plan Name (test code = Rt Lung SBRT 5714) Fractions Treated to 1 of 5 Date (test code = 5715) Prescribed Dose Per 10 Fraction in Gy (test code = 5716) Prescription Dose in cGy 5000 (test code = 5717) Edwin Riddle Lung Quantitative Differential Function Ventilation / [id number] 16:54:39Hm Interface, Radiology Results - 08/05/2019 4:57 PM CSTPROCEDURE: MA LUNG QUANTITATIVE DIFFERENTIAL FUNCTION VENTILATION PERFUSIONINDICATION: R91.1 Solitary pulmonary nodule, C34.92 Malignant neoplasm of unspecified part of left bronchus or lung, hx XRT and lobectomy on L side XRT planningCOMPARISON: PET CT 08/04/2019 TECHNIQUE: Planar ventilation images were acquired after the inhalation of 15 mCi of Xe-133 gas. Planar perfusion images were acquired after the IV administration of 5 mCi of Tc-99m MAA. Quantification of lung function was performed using the geometric mean of the anterior and posterior perfusion images. FINDINGS: Left lung volume loss is noted. Ventilation and perfusion are moderately heterogeneous bilaterally. No suspicious segmental defects are seen. Gas washout is moderately delayed.QUANTITATION:Left lung = 17%Right lung = 83% IMPRESSION:1.Low probability of acutepulmonary embolism.2.Obstructive airway disease.3.Split function as quantified above.[place]-[id number] MethodistPET/CT Skull Base To Mid [id number] 13:58:09Hm Interface, Radiology Results 08/04/2019 2:01 PM CSTEXAMINATION: PET CT SKULL BASE TOMID THIGHCLINICAL HISTORY: R91.1 Solitary pulmonary nodule, C34.92 Malignant neoplasm of unspecifiedpart of left bronchus or lung, Restaging lung cancer XRT planning ; RESTAGINGCOMPARISON: PET/CT 05/20/2018, CT chest 07/22/2019, TECHNIQUE: The patient received 10-15 mCi 18-FDG intravenously. 1 hour later, PET/CT scanning from the orbits to the mid thighs was performed. CT scanning was nondiagnostic and used for attenuation correction purposes and to aid in localization of any abnormal findings on the PET images. Automated dose exposure control was utilized. Blood glucose = 99.FINDINGS:Head and NeckThere is no suspicious lymph node uptake and no evidence of malignancy in the visualized brain.Chest2.8 cm mass-like opacity abutting the superior aspect of postsurgical changes in the posteromedialleft mid lung, associated with marked uptake (SUV = 7.8). Just inferior and posterior to this is prominent, focal uptake just posterolateral to the descending aorta within ill-defined soft tissue abutting the pleura (SUV = 5.8). Just inferior to that in the posteromedial left lung is a 2 cm somewhat am orphous opacity with an SUV of 5.6. A 1 cm nodule in the right lower lobe has increased significantly from prior PET/CT and has an SUV of 1.8 (previously 6 mm with no uptake). Mediastinal, hilar, and axillary uptake are normal.AbdomenUptake in the liver, spleen, adrenal glands, pancreas, kidneys, and stomach is normal. There is no suspicious retroperitoneal or mesenteric lymph node uptake.PelvisThereis no suspicious pelvic or inguinal lymph node uptake.Osseous StructuresThere is no suspicious osseous uptake. IMPRESSION:1.Probable recurrent malignancy at 3 sites in the posteromedial left mid lung.2.Worsening right lower lobe pulmonary nodule, suspicious for metastatic disease.[place]-[id number] MethodistPOCT-GLUCOSE [id number] 11:17:00 Test Item Value Reference Range Interpretation Comments POC-GLUCOSE METER 153 mg/dL 70-110 H TESTED AT [facility] 6720 (BEAKER) (test code = KATIE Barton [place] 1538) [address] POCT-GLUCOSE [id number] 07:48:00 Test Item Value Reference Range Interpretation Comments POC-GLUCOSE METER 115 mg/dL 70-110 H TESTED AT [facility] 6720 (BEAKER) (test code = KATIE Barton [place] 1538) [id number] BASIC METABOLIC [id number] 06:39:00 Test Item Value Reference Range Interpretation Comments SODIUM (BEAKER) 131 meq/L 136-145 L (test code = 381) POTASSIUM (BEAKER) 3.9 meq/L 3.5-5.1 (test code = 379) CHLORIDE (BEAKER) 98 meq/L 98-107 (test code = 382) CO2 (BEAKER) (test 28 meq/L 22-29 code = 355) BLOOD UREA NITROGEN 11 mg/dL 7-21 (BEAKER) (test code = 354) CREATININE (BEAKER) 0.92 mg/dL 0.57-1.25 (test code = 358) GLUCOSE RANDOM 108 mg/dL 70-105 H (BEAKER) (test code = 652) CALCIUM (BEAKER) 8.6 mg/dL 8.4-10.2 (test code = 697) EGFR (BEAKER) (test 59 mL/min/1.73 ESTIMA MICHELLE GFR IS code = 1092) sq m NOT ACCURATE CREATININE CLEARANCE IN PREDICTING GLOMERULAR FILTRATION RATE . ESTIMATED GFR I S NOT APPLICABLE FOR DIALYSIS PATIEN TS. [id number] 06:37:00 Test Item Value Reference Range Interpretation Comments PHOSPHORUS (BEAKER) (test code = 2.6 mg/dL 2.3-4.7 604) [id number] 06:37:00 Test Item Value Reference Range Interpretation Comments MAGNESIUM (BEAKER) (test code = 1.9 mg/dL 1.6-2.6 627) CBC W/PLT COUNT & AUTO [id number] 06:18:00 Test Item Value Reference Range Interpretation Comments WHITE BLOOD CELL COUNT (BEAKER) 4.3 K/ L 3.5-10.5 (test code = 775) RED BLOOD CELL COUNT (BEAKER) 2.85 M/ L 3.93-5.22 L (test code = 761) HEMOGLOBIN (BEAKER) (test code = 8.3 GM/DL 11.2-15.7 L 410) HEMATOCRIT (BEAKER) (test code = 26.6 % 34.1-44.9 L 411) MEAN CORPUSCULAR VOLUME (BEAKER) 93.3 fL 79.4-94.8 (test code = 753) MEAN CORPUSCULAR HEMOGLOBIN 29.1 pg 25.6-32.2 (BEAKER) (test code = 751) MEAN CORPUSCULAR HEMOGLOBIN CONC 31.2 GM/DL 32.2-35.5 L (BEAKER) (test code = 752) RED CELL DISTRIBUTION WIDTH 17.2 % 11.7-14.4 H (BEAKER) (test code = 412) PLATELET COUNT (BEAKER) (test 291 K/CU MM 150-450 code = 756) MEAN PLATELET VOLUME (BEAKER) 9.5 fL 9.4-12.3 (test code = 754) NUCLEATED RED BLOOD CELLS 0 /100 WBC 0-0 (BEAKER) (test code = 413) NEUTROPHILS RELATIVE PERCENT 65 % (BEAKER) (test code = 429) LYMPHOCYTES RELATIVE PERCENT 17 % (BEAKER) (test code = 430) MONOCYTES RELATIVE PERCENT 13 % (BEAKER) (test code = 431) EOSINOPHILS RELATIVE PERCENT 3 % (BEAKER) (test code = 432) BASOPHILS RELATIVE PERCENT 1 % (BEAKER) (test code = 437) NEUTROPHILS ABSOLUTE COUNT 2.77 K/ L 1.56-6.13 (BEAKER) (test code = 670) LYMPHOCYTES ABSOLUTE COUNT 0.74 K/ L 1.18-3.74 L (BEAKER) (test code = 414) MONOCYTES ABSOLUTE COUNT (BEAKER) 0.55 K/ L 0.24-0.36 H (test code = 415) EOSINOPHILS ABSOLUTE COUNT 0.13 K/ L 0.04-0.36 (BEAKER) (test code = 416) BASOPHILS ABSOLUTE COUNT (BEAKER) 0.05 K/ L 0.01-0.08 (test code = 417) IMMATURE GRANULOCYTES-RELATIVE 1 % 0-1 PERCENT (BEAKER) (test code = 2801) POCT-GLUCOSE [id number] 21:41:00 Test Item Value Reference Range Interpretation Comments POC-GLUCOSE METER 115 mg/dL 70-110 H TESTED AT [facility] 6720 (BEAKER) (test code = KATIE ED[place] 1538) [id number] POCT-GLUCOSE [id number] 17:53:00 Test Item Value Reference Range Interpretation Comments POC-GLUCOSE METER 126 mg/dL 70-110 H TESTED AT [place] [address] (BEAKER) ([facility] 1538) [id number] POCT-GLUCOSE [id number] 11:39:00 Test Item Value Reference Range Interpretation Comments POC-GLUCOSE METER 130 mg/dL 70-110 H TESTED AT [place] [address] (BEAKER) (test code = [facility] Oralia [facility] 1538) [address] POCT-GLUCOSE [id number] 08:25:00 Test Item Value Reference Range Interpretation Comments POC-GLUCOSE METER 100 mg/dL 70-110 TESTED AT [place] [address] (BEAKER) (test code = [facility] Oralia [facility] 1538) [address] [id number] 06:17:00 Test Item Value Reference Range Interpretation Comments PHOSPHORUS (BEAKER) (test code = 2.9 mg/dL 2.3-4.7 604) [id number] 06:17:00 Test Item Value Reference Range Interpretation Comments MAGNESIUM (BEAKER) (test code = 1.9 mg/dL 1.6-2.6 627) BASIC METABOLIC [id number] 06:17:00 Test Item Value Reference Range Interpretation Comments SODIUM (BEAKER) 139 meq/L 136-145 (test code = 381) POTASSIUM (BEAKER) 4.0 meq/L 3.5-5.1 (test code = 379) CHLORIDE (BEAKER) 103 meq/L 98-107 (test code = 382) CO2 (BEAKER) (test 25 meq/L 22-29 code = 355) BLOOD UREA NITROGEN 12 mg/dL 7-21 (BEAKER) (test code = 354) CREATININE (BEAKER) 0.92 mg/dL 0.57-1.25 (test code = 358) GLUCOSE RANDOM 95 mg/dL 70-105 (BEAKER) (test code = 652) CALCIUM (BEAKER) 8.2 mg/dL 8.4-10.2 L (test code = 697) EGFR (BEAKER) (test 59 mL/min/1.73 ESTIMA MICHELLE GFR IS code = 1092) sq m NOT ACCURATE CREATININE CLEARANCE IN PREDICTING GLOMERULAR FILTRATION RATE . ESTIMATED GFR I S NOT APPLICABLE FOR DIALYSIS PATIEN TS. CBC W/PLT COUNT & AUTO [id number] 05:52:00 Test Item Value Reference Range Interpretation Comments WHITE BLOOD CELL COUNT (BEAKER) 4.7 K/ L 3.5-10.5 (test code = 775) RED BLOOD CELL COUNT (BEAKER) 2.79 M/ L 3.93-5.22 L (test code = 761) HEMOGLOBIN (BEAKER) (test code = 8.2 GM/DL 11.2-15.7 L 410) HEMATOCRIT (BEAKER) (test code = 26.0 % 34.1-44.9 L 411) MEAN CORPUSCULAR VOLUME (BEAKER) 93.2 fL 79.4-94.8 (test code = 753) MEAN CORPUSCULAR HEMOGLOBIN 29.4 pg 25.6-32.2 (BEAKER) (test code = 751) MEAN CORPUSCULAR HEMOGLOBIN CONC 31.5 GM/DL 32.2-35.5 L (BEAKER) (test code = 752) RED CELL DISTRIBUTION WIDTH 17.0 % 11.7-14.4 H (BEAKER) (test code = 412) PLATELET COUNT (BEAKER) (test 301 K/CU MM 150-450 code = 756) MEAN PLATELET VOLUME (BEAKER) 9.6 fL 9.4-12.3 (test code = 754) NUCLEATED RED BLOOD CELLS 0 /100 WBC 0-0 (BEAKER) (test code = 413) NEUTROPHILS RELATIVE PERCENT 66 % (BEAKER) (test code = 429) LYMPHOCYTES RELATIVE PERCENT 16 % (BEAKER) (test code = 430) MONOCYTES RELATIVE PERCENT 13 % (BEAKER) (test code = 431) EOSINOPHILS RELATIVE PERCENT 4 % (BEAKER) (test code = 432) BASOPHILS RELATIVE PERCENT 1 % (BEAKER) (test code = 437) NEUTROPHILS ABSOLUTE COUNT 3.09 K/ L 1.56-6.13 (BEAKER) (test code = 670) LYMPHOCYTES ABSOLUTE COUNT 0.74 K/ L 1.18-3.74 L (BEAKER) (test code = 414) MONOCYTES ABSOLUTE COUNT (BEAKER) 0.62 K/ L 0.24-0.36 H (test code = 415) EOSINOPHILS ABSOLUTE COUNT 0.17 K/ L 0.04-0.36 (BEAKER) (test code = 416) BASOPHILS ABSOLUTE COUNT (BEAKER) 0.06 K/ L 0.01-0.08 (test code = 417) IMMATURE GRANULOCYTES-RELATIVE 1 % 0-1 PERCENT (BEAKER) (test code = 2801) POCT-GLUCOSE [id number] 21:19:00 Test Item Value Reference Range Interpretation Comments POC-GLUCOSE METER 145 mg/dL 70-110 H TESTED AT [facility] 6720 (BEAKER) (test code = KAT[place] 1538) [address] HEPARIN ASSAY - LOW MOLECULAR [id number] 18:02:00 Test Item Value Reference Range Interpretation Comments LOVENOX-ANTI 10A (BEAKER) (test 1.82 u/ml 0.60-2.00 code = 1605) Anti-Factor 10-A Level (Heparin Assay for Low Molecular Weight Heparin)Monitoring Guidelines: Blood samples should be obtained 4 hours post subcutaneous injection (time of Peak level) Therapeutic Peak Levels: 0.6-1.0 units/mL twice daily enoxaparin 1.0-2.0 units/mL once daily enoxaparinRef: CHEST 2012;141:[id number] no later / no sooner than 4 hours post Lovenox dose.[id number] 13:48:00 Test Item Value Reference Range Interpretation Comments MAGNESIUM (BEAKER) (test code = 2.2 mg/dL 1.6-2.6 627) [id number] 11:45:00 Test Item Value Reference Range Interpretation Comments PHOSPHORUS (BEAKER) (test code = 2.3 mg/dL 2.3-4.7 604) BASIC METABOLIC [id number] 11:45:00 Test Item Value Reference Range Interpretation Comments SODIUM (BEAKER) 135 meq/L 136-145 L (test code = 381) POTASSIUM (BEAKER) 4.4 meq/L 3.5-5.1 (test code = 379) CHLORIDE (BEAKER) 100 meq/L 98-107 (test code = 382) CO2 (BEAKER) (test 25 meq/L 22-29 code = 355) BLOOD UREA NITROGEN 12 mg/dL 7-21 (BEAKER) (test code = 354) CREATININE (BEAKER) 0.92 mg/dL 0.57-1.25 (test code = 358) GLUCOSE RANDOM 89 mg/dL 70-105 (BEAKER) (test code = 652) CALCIUM (BEAKER) 8.4 mg/dL 8.4-10.2 (test code = 697) EGFR (BEAKER) (test 59 mL/min/1.73 ESTIMA MICHELLE GFR IS code = 1092) sq m NOT ACCURATE CREATININE CLEARANCE IN PREDICTING GLOMERULAR FILTRATION RATE . ESTIMATED GFR I S NOT APPLICABLE FOR DIALYSIS PATIEN TS. CBC W/PLT COUNT & AUTO [id number] 09:41:00 Test Item Value Reference Range Interpretation Comments WHITE BLOOD CELL COUNT (BEAKER) 5.0 K/ L 3.5-10.5 (test code = 775) RED BLOOD CELL COUNT (BEAKER) 2.81 M/ L 3.93-5.22 L (test code = 761) HEMOGLOBIN (BEAKER) (test code = 8.2 GM/DL 11.2-15.7 L 410) HEMATOCRIT (BEAKER) (test code = 26.4 % 34.1-44.9 L 411) MEAN CORPUSCULAR VOLUME (BEAKER) 94.0 fL 79.4-94.8 (test code = 753) MEAN CORPUSCULAR HEMOGLOBIN 29.2 pg 25.6-32.2 (BEAKER) (test code = 751) MEAN CORPUSCULAR HEMOGLOBIN CONC 31.1 GM/DL 32.2-35.5 L (BEAKER) (test code = 752) RED CELL DISTRIBUTION WIDTH 17.3 % 11.7-14.4 H (BEAKER) (test code = 412) PLATELET COUNT (BEAKER) (test 327 K/CU MM 150-450 code = 756) MEAN PLATELET VOLUME (BEAKER) 10.4 fL 9.4-12.3 (test code = 754) NUCLEATED RED BLOOD CELLS 0 /100 WBC 0-0 (BEAKER) (test code = 413) NEUTROPHILS RELATIVE PERCENT 65 % (BEAKER) (test code = 429) LYMPHOCYTES RELATIVE PERCENT 13 % (BEAKER) (test code = 430) MONOCYTES RELATIVE PERCENT 15 % (BEAKER) (test code = 431) EOSINOPHILS RELATIVE PERCENT 4 % (BEAKER) (test code = 432) BASOPHILS RELATIVE PERCENT 1 % (BEAKER) (test code = 437) NEUTROPHILS ABSOLUTE COUNT 3.26 K/ L 1.56-6.13 [facility] (test code = 670) LYMPHOCYTES ABSOLUTE COUNT 0.64 K/ L 1.18-3.74 L (BEAKER) (test code = 414) MONOCYTES ABSOLUTE COUNT (BEAKER) 0.75 K/ L 0.24-0.36 H (test code = 415) EOSINOPHILS ABSOLUTE COUNT 0.20 K/ L 0.04-0.36 (BEAKER) (test code = 416) BASOPHILS ABSOLUTE COUNT (BEAKER) 0.07 K/ L 0.01-0.08 (test code = 417) IMMATURE GRANULOCYTES-RELATIVE 2 % 0-1 H PERCENT ([facility]) (test code = 2801) POCT-GLUCOSE [id number] 07:57:00 Test Item Value Reference Range Interpretation Comments POC-GLUCOSE METER 109 mg/dL 70-110 TESTED AT [place] [address] ([facility]) (test code = [place] 1538) [id number] POCT-GLUCOSE [id number] 19:36:00 Test Item Value Reference Range Interpretation Comments POC-GLUCOSE METER 133 mg/dL 70-110 H TESTED AT [place] [address] ([facility]) (test code = KATIE Barton [place] 1538) [address] POCT-GLUCOSE [id number] 18:50:00 Test Item Value Reference Range Interpretation Comments POC-GLUCOSE METER 110 mg/dL 70-110 TESTED AT [place] [address] ([facility]) (test code = KATIE Barton [place] 1538) [address] [id number] 18:21:00 Test Item Value Reference Range Interpretation Comments MAGNESIUM ([facility]) (test code = 1.6 mg/dL 1.6-2.6 627) POCT-GLUCOSE [id number] 17:45:00 Test Item Value Reference Range Interpretation Comments POC-GLUCOSE METER 120 mg/dL 70-110 H TESTED AT [place] [address] ([facility]) (test code = KATIE Barton [place] 1538) [address] POCT-GLUCOSE [id number] 14:23:00 Test Item Value Reference Range Interpretation Comments POC-GLUCOSE METER 172 mg/dL 70-110 H TESTED AT [place] [address] ([facility]) (test code = KATIE Barton [place] 1538) [address] FACTOR 13 [id number] 11:18:00 Test Item Value Reference Range Interpretation Comments FACTOR 13 ACTIVITY (BEAKER) See scanned report (test code = 1415) [id number] 05:05:00 Test Item Value Reference Range Interpretation Comments PHOSPHORUS (BEAKER) (test code = 2.1 mg/dL 2.3-4.7 L 604) [id number] 05:05:00 Test Item Value Reference Range Interpretation Comments MAGNESIUM (BEAKER) (test code = 1.2 mg/dL 1.6-2.6 L 627) BASIC METABOLIC [id number] 05:05:00 Test Item Value Reference Range Interpretation Comments SODIUM (BEAKER) 133 meq/L 136-145 L (test code = 381) POTASSIUM (BEAKER) 3.8 meq/L 3.5-5.1 (test code = 379) CHLORIDE (BEAKER) 101 meq/L 98-107 (test code = 382) CO2 (BEAKER) (test 25 meq/L 22-29 code = 355) BLOOD UREA NITROGEN 13 mg/dL 7-21 (BEAKER) (test code = 354) CREATININE (BEAKER) 0.95 mg/dL 0.57-1.25 (test code = 358) GLUCOSE RANDOM 110 mg/dL 70-105 H (BEAKER) (test code = 652) CALCIUM (BEAKER) 8.2 mg/dL 8.4-10.2 L (test code = 697) EGFR (BEAKER) (test 57 mL/min/1.73 ESTIMA MICHELLE GFR IS code = 1092) sq m NOT ACCURATE CREATININE CLEARANCE IN PREDICTING GLOMERULAR FILTRATION RATE . ESTIMATED GFR I S NOT APPLICABLE FOR DIALYSIS PATIEN TS. CBC W/PLT COUNT & AUTO [id number] 04:13:00 Test Item Value Reference Range Interpretation Comments WHITE BLOOD CELL COUNT (BEAKER) 5.6 K/ L 3.5-10.5 (test code = 775) RED BLOOD CELL COUNT (BEAKER) 2.68 M/ L 3.93-5.22 L (test code = 761) HEMOGLOBIN (BEAKER) (test code = 8.0 GM/DL 11.2-15.7 L 410) HEMATOCRIT (BEAKER) (test code = 25.0 % 34.1-44.9 L 411) MEAN CORPUSCULAR VOLUME (BEAKER) 93.3 fL 79.4-94.8 (test code = 753) MEAN CORPUSCULAR HEMOGLOBIN 29.9 pg 25.6-32.2 (BEAKER) (test code = 751) MEAN CORPUSCULAR HEMOGLOBIN CONC 32.0 GM/DL 32.2-35.5 L (BEAKER) (test code = 752) RED CELL DISTRIBUTION WIDTH 16.7 % 11.7-14.4 H (BEAKER) (test code = 412) PLATELET COUNT (BEAKER) (test 263 K/CU MM 150-450 code = 756) MEAN PLATELET VOLUME (BEAKER) 9.4 fL 9.4-12.3 (test code = 754) NUCLEATED RED BLOOD CELLS 0 /100 WBC 0-0 (BEAKER) (test code = 413) NEUTROPHILS RELATIVE PERCENT 71 % (BEAKER) (test code = 429) LYMPHOCYTES RELATIVE PERCENT 12 % (BEAKER) (test code = 430) MONOCYTES RELATIVE PERCENT 11 % (BEAKER) (test code = 431) EOSINOPHILS RELATIVE PERCENT 3 % (BEAKER) (test code = 432) BASOPHILS RELATIVE PERCENT 1 % (BEAKER) (test code = 437) NEUTROPHILS ABSOLUTE COUNT 3.92 K/ L 1.56-6.13 (BEAKER) (test code = 670) LYMPHOCYTES ABSOLUTE COUNT 0.67 K/ L 1.18-3.74 L (BEAKER) (test code = 414) MONOCYTES ABSOLUTE COUNT (BEAKER) 0.61 K/ L 0.24-0.36 H (test code = 415) EOSINOPHILS ABSOLUTE COUNT 0.17 K/ L 0.04-0.36 (BEAKER) (test code = 416) BASOPHILS ABSOLUTE COUNT (BEAKER) 0.04 K/ L 0.01-0.08 (test code = 417) IMMATURE GRANULOCYTES-RELATIVE 3 % 0-1 H PERCENT (BEAKER) (test code = 280) POCT-GLUCOSE [id number] 23:44:00 Test Item Value Reference Range Interpretation Comments POC-GLUCOSE METER 135 mg/dL 70-110 H TESTED AT [facility] 67 (BEAKER) (test code = KATIE [place] 1538) [address] POCT-GLUCOSE [id number] 20:10:00 Test Item Value Reference Range Interpretation Comments POC-GLUCOSE METER 196 mg/dL 70-110 H TESTED AT [place] [address] (BEAKER) (test code = KATIE Barton [place] 1538) [address] [id number] 10:29:00 Test Item Value Reference Range Interpretation Comments POTASSIUM (BEAKER) (test code = 4.5 meq/L 3.5-5.1 379) POCT-GLUCOSE [id number] 06:47:00 Test Item Value Reference Range Interpretation Comments POC-GLUCOSE METER 110 mg/dL 70-110 TESTED AT [facility] 6720 (BEAKER) (test code = KATIE Barton [facility] 1538) [address] CBC W/PLT COUNT & AUTO [id number] 06:27:00 Test Item Value Reference Range Interpretation Comments WHITE BLOOD CELL COUNT (BEAKER) 6.4 K/ L 3.5-10.5 (test code = 775) RED BLOOD CELL COUNT (BEAKER) 2.48 M/ L 3.93-5.22 L (test code = 761) HEMOGLOBIN (BEAKER) (test code = 7.4 GM/DL 11.2-15.7 L 410) HEMATOCRIT (BEAKER) (test code = 23.0 % 34.1-44.9 L 411) MEAN CORPUSCULAR VOLUME (BEAKER) 92.7 fL 79.4-94.8 (test code = 753) MEAN CORPUSCULAR HEMOGLOBIN 29.8 pg 25.6-32.2 (BEAKER) (test code = 751) MEAN CORPUSCULAR HEMOGLOBIN CONC 32.2 GM/DL 32.2-35.5 (BEAKER) (test code = 752) RED CELL DISTRIBUTION WIDTH 16.3 % 11.7-14.4 H (BEAKER) (test code = 412) PLATELET COUNT (BEAKER) (test 255 K/CU MM 150-450 code = 756) MEAN PLATELET VOLUME (BEAKER) 9.6 fL 9.4-12.3 (test code = 754) NUCLEATED RED BLOOD CELLS 0 /100 WBC 0-0 (BEAKER) (test code = 413) NEUTROPHILS RELATIVE PERCENT 73 % (BEAKER) (test code = 429) LYMPHOCYTES RELATIVE PERCENT 11 % (BEAKER) (test code = 430) MONOCYTES RELATIVE PERCENT 11 % (BEAKER) (test code = 431) EOSINOPHILS RELATIVE PERCENT 3 % (BEAKER) (test code = 432) BASOPHILS RELATIVE PERCENT 1 % (BEAKER) (test code = 437) NEUTROPHILS ABSOLUTE COUNT 4.67 K/ L 1.56-6.13 (BEAKER) (test code = 670) LYMPHOCYTES ABSOLUTE COUNT 0.71 K/ L 1.18-3.74 L (BEAKER) (test code = 414) MONOCYTES ABSOLUTE COUNT (BEAKER) 0.73 K/ L 0.24-0.36 H (test code = 415) EOSINOPHILS ABSOLUTE COUNT 0.19 K/ L 0.04-0.36 (BEAKER) (test code = 416) BASOPHILS ABSOLUTE COUNT (BEAKER) 0.04 K/ L 0.01-0.08 (test code = 417) IMMATURE GRANULOCYTES-RELATIVE 2 % 0-1 H PERCENT (BEAKER) (test code = 2801) [id number] 05:40:00 Test Item Value Reference Range Interpretation Comments PHOSPHORUS (BEAKER) (test code = 1.8 mg/dL 2.3-4.7 L 604) [id number] 05:40:00 Test Item Value Reference Range Interpretation Comments MAGNESIUM (BEAKER) (test code = 1.3 mg/dL 1.6-2.6 L 627) BASIC METABOLIC [id number] 05:40:00 Test Item Value Reference Range Interpretation Comments SODIUM (BEAKER) 134 meq/L 136-145 L (test code = 381) POTASSIUM (BEAKER) 3.3 meq/L 3.5-5.1 L (test code = 379) CHLORIDE (BEAKER) 101 meq/L 98-107 (test code = 382) CO2 (BEAKER) (test 26 meq/L 22-29 code = 355) BLOOD UREA NITROGEN 17 mg/dL 7-21 (BEAKER) (test code = 354) CREATININE (BEAKER) 0.96 mg/dL 0.57-1.25 (test code = 358) GLUCOSE RANDOM 92 mg/dL 70-105 (BEAKER) (test code = 652) CALCIUM (BEAKER) 8.6 mg/dL 8.4-10.2 (test code = 697) EGFR (BEAKER) (test 56 mL/min/1.73 ESTIMA MICHELLE GFR IS code = 1092) sq m NOT ACCURATE CREATININE CLEARANCE IN PREDICTING GLOMERULAR FILTRATION RATE . ESTIMATED GFR I S NOT APPLICABLE FOR DIALYSIS PATIEN TS. POCT-GLUCOSE [id number] 01:35:00 Test Item Value Reference Range Interpretation Comments POC-GLUCOSE METER 88 mg/dL 70-110 TESTED AT [place] [address] ([facility]) (test code = KATIE Barton [facility] [address]) POCT-GLUCOSE [id number] 23:22:00 Test Item Value Reference Range Interpretation Comments POC-GLUCOSE METER 86 mg/dL 70-110 TESTED AT [place] [address] ([facility]) (test code = KATIE Barton [facility] [address]) POCT-GLUCOSE [id number] 19:31:00 Test Item Value Reference Range Interpretation Comments POC-GLUCOSE METER 191 mg/dL 70-110 H TESTED AT [place] [address] ([facility]) (test code = LUISITODE Oralia [facility] 1538) [address] HEMOGLOBIN [id number] 14:15:00 Test Item Value Reference Range Interpretation Comments HEMOGLOBIN A1C ([facility]) (test code = 5.2 % 4.3-6.1 368) POCT-GLUCOSE [id number] 13:06:00 Test Item Value Reference Range Interpretation Comments POC-GLUCOSE METER 168 mg/dL 70-110 H TESTED AT [place] [address] ([facility]) (test code = [facility] Oralia [facility] 1538) [address] TROPONIN [id number] 12:52:00 Test Item Value Reference Range Interpretation Comments TROPONIN I ([facility]) (test code = 0.05 ng/mL 0.00-0.03 H 397) Troponin I (TnI) levels must be interpreted in the context of the presenting symptoms and the clinical findings. Elevated TnI levels indicate myocardial damage, but are not specific for ischemic heart disease. Elevated TnI levels are seen in patients with other cardiac conditions (including myocarditis and congestive heart failure), and slight TnI elevations occur in patients with other conditions, including sepsis, renal failure, acidosis, acute neurological disease, and persistent tachyarrhythmia.POCT-GLUCOSE [id number] 12:17:00 Test Item Value Reference Range Interpretation Comments POC-GLUCOSE METER 33 mg/dL 70-110 LL Notified R Angus WYLIE/TESTED AT ([facility]) (test code = [place] [address] [facility] [place] [address] POCT-GLUCOSE [id number] 08:24:00 Test Item Value Reference Range Interpretation Comments POC-GLUCOSE METER 91 mg/dL 70-110 TESTED AT [facility] 6720 (BEAKER) (test code = [place] [id number] [id number]) URINALYSIS W/ [id number] 06:44:00 Test Item Value Reference Range Interpretation Comments COLOR (BEAKER) (test code Yellow = 470) CLARITY (BEAKER) (test Clear code = 469) SPECIFIC GRAVITY UA 1.013 1.001-1.035 (BEAKER) (test code = 468) PH UA (BEAKER) (test code 6.0 5.0-8.0 = 467) PROTEIN UA (BEAKER) (test Negative Negative code = 464) GLUCOSE UA (BEAKER) (test Negative Negative code = 365) KETONES UA (BEAKER) (test Negative Negative code = 371) BILIRUBIN UA (BEAKER) Negative Negative (test code = 462) BLOOD UA (BEAKER) (test Small Negative A code = 461) NITRITE UA (BEAKER) (test Negative Negative code = 465) LEUKOCYTE ESTERASE UA Negative Negative (BEAKER) (test code = 466) UROBILINOGEN UA (BEAKER) 0.2 mg/dL 0.2-1.0 (test code = 463) RBC UA (BEAKER) (test code 12 /HPF = 519) WBC UA (BEAKER) (test code 3 /HPF = 520) BACTERIA (BEAKER) (test Rare code = 517) MUCUS (BEAKER) (test code Rare = 1574) HYALINE CASTS (BEAKER) 19 /LPF (test code = 514) AMORPHOUS CRYSTALS Occasional (BEAKER) (test code = 1584) SOURCE(BEAKER) (test code Urine, Clean Catch = 2795) RAD, CHEST, 1 VIEW, NON [id number] 06:42:00Reason for exam:->Eval for infectionShould this be performed at the bedside?->YesFINAL REPORT Chest one view. Clinical history: Evaluate for infection. Compar carlitos: Chest radiograph 11/10/17 Technique: A single frontal view of the chest was obtained. Findings/impression:The heart is normal in size. The aorta is atherosclerotic. There are surgical clips in the left hilum. There is mild volume loss in the left hemithorax. There is a small left pleural effusion, decreased in the interval. There is no pneumothorax. There is a right-sided ventriculoperitoneal shunt catheter. Signed: Aury Gaort Verified Date/Time: 11/14/2017 06:42:35 Reading Location: [facility] B1 C013T Transitional Reading Room POCT-GLUCOSE [id number] 05:53:00 Test Item Value Reference Range Interpretation Comments POC-GLUCOSE METER 92 mg/dL 70-110 TESTED AT [facility] 6720 (BEAKER) (test code = KATIE Barton [facility] [address] 1538) POCT-GLUCOSE [id number] 05:52:00 Test Item Value Reference Range Interpretation Comments POC-GLUCOSE METER 55 mg/dL 70-110 L Will Repea t Test/TESTED (BEAKER) (test code = AT [facility] [address] 1538) [facility] [address] CBC W/PLT COUNT & AUTO [id number] 05:49:00 Test Item Value Reference Range Interpretation Comments WHITE BLOOD CELL COUNT (BEAKER) 9.6 K/ L 3.5-10.5 (test code = 775) RED BLOOD CELL COUNT (BEAKER) 2.76 M/ L 3.93-5.22 L (test code = 761) HEMOGLOBIN (BEAKER) (test code = 8.0 GM/DL 11.2-15.7 L 410) HEMATOCRIT (BEAKER) (test code = 25.3 % 34.1-44.9 L 411) MEAN CORPUSCULAR VOLUME (BEAKER) 91.7 fL 79.4-94.8 (test code = 753) MEAN CORPUSCULAR HEMOGLOBIN 29.0 pg 25.6-32.2 (BEAKER) (test code = 751) MEAN CORPUSCULAR HEMOGLOBIN CONC 31.6 GM/DL 32.2-35.5 L (BEAKER) (test code = 752) RED CELL DISTRIBUTION WIDTH 16.4 % 11.7-14.4 H (BEAKER) (test code = 412) PLATELET COUNT (BEAKER) (test 287 K/CU MM 150-450 code = 756) MEAN PLATELET VOLUME (BEAKER) 9.6 fL 9.4-12.3 (test code = 754) NUCLEATED RED BLOOD CELLS 0 /100 WBC 0-0 (BEAKER) (test code = 413) NEUTROPHILS RELATIVE PERCENT 80 % (BEAKER) (test code = 429) LYMPHOCYTES RELATIVE PERCENT 9 % (BEAKER) (test code = 430) MONOCYTES RELATIVE PERCENT 8 % (BEAKER) (test code = 431) EOSINOPHILS RELATIVE PERCENT 1 % (BEAKER) (test code = 432) BASOPHILS RELATIVE PERCENT 1 % (BEAKER) (test code = 437) NEUTROPHILS ABSOLUTE COUNT 7.59 K/ L 1.56-6.13 H (BEAKER) (test code = 670) LYMPHOCYTES ABSOLUTE COUNT 0.90 K/ L 1.18-3.74 L (BEAKER) (test code = 414) MONOCYTES ABSOLUTE COUNT (BEAKER) 0.77 K/ L 0.24-0.36 H (test code = 415) EOSINOPHILS ABSOLUTE COUNT 0.08 K/ L 0.04-0.36 (BEAKER) (test code = 416) BASOPHILS ABSOLUTE COUNT (BEAKER) 0.06 K/ L 0.01-0.08 (test code = 417) IMMATURE GRANULOCYTES-RELATIVE 2 % 0-1 H PERCENT (BEAKER) (test code = 2801) [id number] 04:54:00 Test Item Value Reference Range Interpretation Comments PHOSPHORUS (BEAKER) (test code = 2.8 mg/dL 2.3-4.7 604) [id number] 04:54:00 Test Item Value Reference Range Interpretation Comments MAGNESIUM (BEAKER) (test code = 1.5 mg/dL 1.6-2.6 L 627) BASIC METABOLIC [id number] 04:54:00 Test Item Value Reference Range Interpretation Comments SODIUM (BEAKER) 136 meq/L 136-145 (test code = 381) POTASSIUM (BEAKER) 3.4 meq/L 3.5-5.1 L (test code = 379) CHLORIDE (BEAKER) 101 meq/L 98-107 (test code = 382) CO2 (BEAKER) (test 27 meq/L 22-29 code = 355) BLOOD UREA NITROGEN 31 mg/dL 7-21 H (BEAKER) (test code = 354) CREATININE (BEAKER) 1.39 mg/dL 0.57-1.25 H (test code = 358) GLUCOSE RANDOM 52 mg/dL 70-105 L (frestyl) (test code = 652) CALCIUM (BEAKER) 8.4 mg/dL 8.4-10.2 (test code = 697) EGFR (BEAKER) (test 37 mL/min/1.73 ESTIMA MICHELLE GFR IS code = 1092) sq m NOT ACCURATE CREATININE CLEARANCE IN PREDICTING GLOMERULAR FILTRATION RATE . ESTIMATED GFR I S NOT APPLICABLE FOR DIALYSIS PATIEN TS. [id number] 02:07:00 Test Item Value Reference Range Interpretation Comments RPR SCREEN (frestyl) (test code = Nonreactive Nonreactive 420) [id number] 01:40:00 Test Item Value Reference Range Interpretation Comments PROCALCITONIN (tagUinAKER) (test code 0.14 ng/mL <0.05 H = 3036) SEPSIS RISK (ng/mL)Low: 0.05-0.50Intermediate: 0.51-2.00High: >=2.01LACTIC ACID, VENOUS, WHOLE [id number] 01:03:00 Test Item Value Reference Range Interpretation Comments LACTATE BLOOD VENOUS (2) (tagUinAKER) 0.8 mmol/L 0.5-2.2 (test code = 2872) Effective 01/02/2016: Units/Reference Range ChangeNew: 0.5-2.2 mmol/L Previous: 5-20 mg/dLTROPONIN [id number] 00:58:00 Test Item Value Reference Range Interpretation Comments TROPONIN I (tagUinAKER) (test code = 0.06 ng/mL 0.00-0.03 H 397) Troponin I (TnI) levels must be interpreted in the context of the presenting symptoms and the clinical findings. Elevated TnI levels indicate myocardial damage, but are not specific for ischemic heart disease. Elevated TnI levels are seen in patients with other cardiac conditions (including myocarditis and congestive heart failure), and slight TnI elevations occur in patients with other conditions, including sepsis, renal failure, acidosis, acute neurological disease, and persistent tachyarrhythmia.POCT-GLUCOSE [id number] 00:27:00 Test Item Value Reference Range Interpretation Comments POC-GLUCOSE METER 76 mg/dL 70-110 TESTED AT [facility] 6720 (frestyl) (test code = KATIE Barton [facility] [address]38) POCT-GLUCOSE [id number] 22:34:00 Test Item Value Reference Range Interpretation Comments POC-GLUCOSE METER 78 mg/dL 70-110 TESTED AT [facility] 6720 (BEAKER) (test code = KATIE Barton [facility] [address] 1538) T4, [id number] 21:34:00 Test Item Value Reference Range Interpretation Comments FREE T4 (BEAKER) (test code = 655) 1.23 ng/dL 0.70-1.48 TSH/FREE T4 IF [id number] 20:55:00 Test Item Value Reference Range Interpretation Comments THYROID STIMULATING HORMONE 6.96 uIU/mL 0.35-4.94 H (BEAKER) (test code = 772) VITAMIN B12 AND [id number] 20:51:00 Test Item Value Reference Range Interpretation Comments VITAMIN B12 (BEAKER) (test code = 1167 pg/mL 213-816 H 774) FOLATE (BEAKER) (test code = 362) 11.8 ng/mL >=7.0 [id number] 19:53:00 Test Item Value Reference Range Interpretation Comments PHOSPHORUS (BEAKER) (test code = 3.3 mg/dL 2.3-4.7 604) [id number] 19:53:00 Test Item Value Reference Range Interpretation Comments MAGNESIUM (BEAKER) (test code = 1.6 mg/dL 1.6-2.6 627) COMPREHENSIVE METABOLIC [id number] 19:53:00 Test Item Value Reference Range Interpretation Comments TOTAL PROTEIN 5.9 gm/dL 6.0-8.3 L (BEAKER) (test code = 770) ALBUMIN (BEAKER) 3.4 g/dL 3.5-5.0 L (test code = 1145) ALKALINE PHOSPHATASE 84 U/L 40-150 (BEAKER) (test code = 346) BILIRUBIN TOTAL 1.1 mg/dL 0.2-1.2 (BEAKER) (test code = 377) SODIUM (BEAKER) (test 136 meq/L 136-145 code = 381) POTASSIUM (BEAKER) 4.0 meq/L 3.5-5.1 (test code = 379) CHLORIDE (BEAKER) 95 meq/L 98-107 L (test code = 382) CO2 (BEAKER) (test 31 meq/L 22-29 H code = 355) BLOOD UREA NITROGEN 34 mg/dL 7-21 H (BEAKER) (test code = 354) CREATININE (BEAKER) 1.61 mg/dL 0.57-1.25 H (test code = 358) GLUCOSE RANDOM 79 mg/dL 70-105 (BEAKER) (test code = 652) CALCIUM (BEAKER) 9.5 mg/dL 8.4-10.2 (test code = 697) AST (SGOT) (BEAKER) 20 U/L 5-34 (test code = 353) ALT (SGPT) (BEAKER) 33 U/L 6-55 (test code = 347) EGFR (BEAKER) (test 31 mL/min/1.73 ESTIMA MICHELLE GFR IS code = 1092) sq m NOT ACCURATE CREATININE CLEARANCE IN PREDICTING GLOMERULAR FILTRATION RATE . ESTIMATED GFR I S NOT APPLICABLE FOR DIALYSIS PATIEN TS. LIPID [id number] 19:53:00 Test Item Value Reference Range Interpretation Comments TRIGLYCERIDES (BEAKER) (test code = 108 mg/dL 540) CHOLESTEROL (BEAKER) (test code = 243 mg/dL 631) HDL CHOLESTEROL (BEAKER) (test code 46 mg/dL = 976) LDL CHOLESTEROL CALCULATED (BEAKER) 175 mg/dL (test code = 633) Triglyceride Reference Range: Low Risk <150 Borderline 150-199 High Risk 200-499 Very High Risk >=500Cholesterol Reference Range: Low Risk <200 Borderline 200-239 High Risk >240HDL Cholesterol Reference Range: Low Risk >=60 High Risk <40LDL Cholesterol Reference Range: Optimal <100 Near Optimal 100-129 Borderline 130-159 High 160-189 Very High >=190CBC W/PLT COUNT & AUTO [id number] 19:45:00 Test Item Value Reference Range Interpretation Comments WHITE BLOOD CELL COUNT (BEAKER) 10.3 K/ L 3.5-10.5 (test code = 775) RED BLOOD CELL COUNT (BEAKER) 3.26 M/ L 3.93-5.22 L (test code = 761) HEMOGLOBIN (BEAKER) (test code = 9.6 GM/DL 11.2-15.7 L 410) HEMATOCRIT (BEAKER) (test code = 29.7 % 34.1-44.9 L 411) MEAN CORPUSCULAR VOLUME (BEAKER) 91.1 fL 79.4-94.8 (test code = 753) MEAN CORPUSCULAR HEMOGLOBIN 29.4 pg 25.6-32.2 (BEAKER) (test code = 751) MEAN CORPUSCULAR HEMOGLOBIN CONC 32.3 GM/DL 32.2-35.5 (BEAKER) (test code = 752) RED CELL DISTRIBUTION WIDTH 15.9 % 11.7-14.4 H (BEAKER) (test code = 412) PLATELET COUNT (BEAKER) (test 294 K/CU MM 150-450 code = 756) MEAN PLATELET VOLUME (BEAKER) 9.3 fL 9.4-12.3 L (test code = 754) NUCLEATED RED BLOOD CELLS 0 /100 WBC 0-0 (BEAKER) (test code = 413) NEUTROPHILS RELATIVE PERCENT 85 % (BEAKER) (test code = 429) LYMPHOCYTES RELATIVE PERCENT 8 % (BEAKER) (test code = 430) MONOCYTES RELATIVE PERCENT 5 % (BEAKER) (test code = 431) EOSINOPHILS RELATIVE PERCENT 0 % (BEAKER) (test code = 432) BASOPHILS RELATIVE PERCENT 0 % (BEAKER) (test code = 437) NEUTROPHILS ABSOLUTE COUNT 8.74 K/ L 1.56-6.13 H (BEAKER) (test code = 670) LYMPHOCYTES ABSOLUTE COUNT 0.78 K/ L 1.18-3.74 L (BEAKER) (test code = 414) MONOCYTES ABSOLUTE COUNT (BEAKER) 0.55 K/ L 0.24-0.36 H (test code = 415) EOSINOPHILS ABSOLUTE COUNT 0.00 K/ L 0.04-0.36 L (BEAKER) (test code = 416) BASOPHILS ABSOLUTE COUNT (BEAKER) 0.03 K/ L 0.01-0.08 (test code = 417) IMMATURE GRANULOCYTES-RELATIVE 2 % 0-1 H PERCENT (BEAKER) (test code = 2801) POCT-GLUCOSE [id number] 17:30:00 Test Item Value Reference Range Interpretation Comments POC-GLUCOSE METER 95 mg/dL 70-110 TESTED AT [facility] [address] ([facility]) (test code = [place] [id number]) HEMOGLOBIN AND [id number] 11:43:00 Test Item Value Reference Range Interpretation Comments HEMOGLOBIN (BEAKER) (test code = 9.1 GM/DL 11.2-15.7 L 410) HEMATOCRIT (BEAKER) (test code = 28.3 % 34.1-44.9 L 411) [id number] 05:12:00 Test Item Value Reference Range Interpretation Comments PARTIAL THROMBOPLASTIN TIME 32.5 seconds 22.5-36.0 (BEAKER) (test code = 760) BASIC METABOLIC [id number] 05:12:00 Test Item Value Reference Range Interpretation Comments SODIUM (BEAKER) 139 meq/L 136-145 (test code = 381) POTASSIUM (BEAKER) 4.0 meq/L 3.5-5.1 (test code = 379) CHLORIDE (BEAKER) 99 meq/L 98-107 (test code = 382) CO2 (BEAKER) (test 32 meq/L 22-29 H code = 355) BLOOD UREA NITROGEN 21 mg/dL 7-21 (BEAKER) (test code = 354) CREATININE (BEAKER) 1.22 mg/dL 0.57-1.25 (test code = 358) GLUCOSE RANDOM 111 mg/dL 70-105 H (BEAKER) (test code = 652) CALCIUM (BEAKER) 9.2 mg/dL 8.4-10.2 (test code = 697) EGFR (BEAKER) (test 43 mL/min/1.73 ESTIMA MICHELLE GFR IS code = 1092) sq m NOT ACCURATE CREATININE CLEARANCE IN PREDICTING GLOMERULAR FILTRATION RATE . ESTIMATED GFR I S NOT APPLICABLE FOR DIALYSIS PATIEN TS. PROTHROMBIN [id number] 05:11:00 Test Item Value Reference Range Interpretation Comments PROTIME (BEAKER) (test code = 16.2 seconds 11.7-14.7 H 759) INR (BEAKER) (test code = 370) 1.3 <=5.9 RECOMMENDED COUMADIN/WARFARIN INR THERAPY RANGESSTANDARD DOSE: 2.0 - 3.0 Includes: PROPHYLAXIS forvenous thrombosis, systemic embolization; TREATMENT for venous thrombosis and/or pulmonary embolus.HIGH RISK: Target INR is 2.5-3.5 for patients with mechanical heart valves.HEMOGLOBIN AND [id number] 04:48:00 Test Item Value Reference Range Interpretation Comments HEMOGLOBIN (BEAKER) (test code = 9.0 GM/DL 11.2-15.7 L 410) HEMATOCRIT (BEAKER) (test code = 28.2 % 34.1-44.9 L 411) CBC W/PLT COUNT & AUTO [id number] 04:48:00 Test Item Value Reference Range Interpretation Comments WHITE BLOOD CELL COUNT (BEAKER) 5.9 K/ L 3.5-10.5 (test code = 775) RED BLOOD CELL COUNT (BEAKER) 3.09 M/ L 3.93-5.22 L (test code = 761) HEMOGLOBIN (BEAKER) (test code = 9.0 GM/DL 11.2-15.7 L 410) HEMATOCRIT (BEAKER) (test code = 28.2 % 34.1-44.9 L 411) MEAN CORPUSCULAR VOLUME (BEAKER) 91.3 fL 79.4-94.8 (test code = 753) MEAN CORPUSCULAR HEMOGLOBIN 29.1 pg 25.6-32.2 (BEAKER) (test code = 751) MEAN CORPUSCULAR HEMOGLOBIN CONC 31.9 GM/DL 32.2-35.5 L (BEAKER) (test code = 752) RED CELL DISTRIBUTION WIDTH 15.9 % 11.7-14.4 H (BEAKER) (test code = 412) PLATELET COUNT (BEAKER) (test 276 K/CU MM 150-450 code = 756) MEAN PLATELET VOLUME (BEAKER) 9.2 fL 9.4-12.3 L (test code = 754) NUCLEATED RED BLOOD CELLS 0 /100 WBC 0-0 (BEAKER) (test code = 413) NEUTROPHILS RELATIVE PERCENT 65 % (BEAKER) (test code = 429) LYMPHOCYTES RELATIVE PERCENT 15 % (BEAKER) (test code = 430) MONOCYTES RELATIVE PERCENT 10 % (BEAKER) (test code = 431) EOSINOPHILS RELATIVE PERCENT 4 % (BEAKER) (test code = 432) BASOPHILS RELATIVE PERCENT 1 % (BEAKER) (test code = 437) NEUTROPHILS ABSOLUTE COUNT 3.82 K/ L 1.56-6.13 (BEAKER) (test code = 670) LYMPHOCYTES ABSOLUTE COUNT 0.88 K/ L 1.18-3.74 L (BEAKER) (test code = 414) MONOCYTES ABSOLUTE COUNT (BEAKER) 0.59 K/ L 0.24-0.36 H (test code = 415) EOSINOPHILS ABSOLUTE COUNT 0.22 K/ L 0.04-0.36 (BEAKER) (test code = 416) BASOPHILS ABSOLUTE COUNT (BEAKER) 0.05 K/ L 0.01-0.08 (test code = 417) IMMATURE GRANULOCYTES-RELATIVE 5 % 0-1 H PERCENT (BEAKER) (test code = 2801) HEPARIN ASSAY - LOW MOLECULAR [id number] 18:49:00 Test Item Value Reference Range Interpretation Comments LOVENOX-ANTI 10A (BEAKER) (test 1.52 u/ml 0.60-2.00 code = 1605) Anti-Factor 10-A Level (Heparin Assay for Low Molecular Weight Heparin)Monitoring Guidelines: Blood samples should be obtained 4 hours post subcutaneous injection (time of Peak level) Therapeutic Peak Levels: 0.6-1.0 units/mL twice daily enoxaparin 1.0-2.0 units/mL once daily enoxaparinRef: CHEST 2012;141:[id number] draw blood 4 hours post lovenox doseHEMOGLOBIN AND [id number] 17:59:00 Test Item Value Reference Range Interpretation Comments HEMOGLOBIN (BEAKER) (test code = 9.3 GM/DL 11.2-15.7 L 410) HEMATOCRIT (BEAKER) (test code = 28.7 % 34.1-44.9 L 411) RAD, CHEST, 1 VIEW, NON [id number] 09:59:00Reason for exam:->pleural fluidShould this be performed at the bedside?->YesFINAL REPORT Chest one view INDICATION: Pleural fluid COMPARISON: 11/03/2017 IMP RESSION: Ventriculostomy catheter tubing is partially imaged. A left pleural effusion is present with lower left lung consolidation or atelectasis. The cardiomediastinal contours are partially obscuredbut stable accounting for positioning. The right lung is grossly clear. No pneumothorax is identified. Signed: Hiren Villalobos MDReport Verified Date/Time: 11/10/2017 09:59:00 Reading Location: [facility] Radiology Reading Room [id number] 04:09:00 Test Item Value Reference Range Interpretation Comments COL/EPI CLOSURE TIME (BEAKER) 89 Seconds 78-191 (test code = 1801) COL/ADP CLOSURE TIME (BEAKER) 79 Seconds 43-122 (test code = 1802) PLATELET COUNT AGG (BEAKER) (test 235 K/CU MM 150-450 code = 2656) BASIC METABOLIC [id number] 04:07:00 Test Item Value Reference Range Interpretation Comments SODIUM (BEAKER) 136 meq/L 136-145 (test code = 381) POTASSIUM (BEAKER) 3.1 meq/L 3.5-5.1 L (test code = 379) CHLORIDE (BEAKER) 96 meq/L 98-107 L (test code = 382) CO2 (BEAKER) (test 30 meq/L 22-29 H code = 355) BLOOD UREA NITROGEN 17 mg/dL 7-21 (BEAKER) (test code = 354) CREATININE (BEAKER) 1.05 mg/dL 0.57-1.25 (test code = 358) GLUCOSE RANDOM 104 mg/dL 70-105 (BEAKER) (test code = 652) CALCIUM (BEAKER) 8.4 mg/dL 8.4-10.2 (test code = 697) EGFR (BEAKER) (test 51 mL/min/1.73 ESTIMA MICHELLE GFR IS code = 1092) sq m NOT ACCURATE CREATININE CLEARANCE IN PREDICTING GLOMERULAR FILTRATION RATE . ESTIMATED GFR I S NOT APPLICABLE FOR DIALYSIS PATIEN TS. PROTHROMBIN [id number] 03:52:00 Test Item Value Reference Range Interpretation Comments PROTIME (BEAKER) (test code = 14.5 seconds 11.7-14.7 759) INR (BEAKER) (test code = 370) 1.1 <=5.9 RECOMMENDED COUMADIN/WARFARIN INR THERAPY RANGESSTANDARD DOSE: 2.0 - 3.0 Includes: PROPHYLAXIS forvenous thrombosis, systemic embolization; TREATMENT for venous thrombosis and/or pulmonary embolus.HIGH RISK: Target INR is 2.5-3.5 for patients with mechanical heart valves.[id number] 03:52:00 Test Item Value Reference Range Interpretation Comments PARTIAL THROMBOPLASTIN TIME 36.7 seconds 22.5-36.0 H (BEAKER) (test code = 760) HEMOGLOBIN AND [id number] 03:43:00 Test Item Value Reference Range Interpretation Comments HEMOGLOBIN (BEAKER) (test code = 8.2 GM/DL 11.2-15.7 L 410) HEMATOCRIT (BEAKER) (test code = 25.9 % 34.1-44.9 L 411) CBC W/PLT COUNT & AUTO [id number] 03:43:00 Test Item Value Reference Range Interpretation Comments WHITE BLOOD CELL COUNT (BEAKER) 6.1 K/ L 3.5-10.5 (test code = 775) RED BLOOD CELL COUNT (BEAKER) 2.87 M/ L 3.93-5.22 L (test code = 761) HEMOGLOBIN (BEAKER) (test code = 8.2 GM/DL 11.2-15.7 L 410) HEMATOCRIT (BEAKER) (test code = 25.9 % 34.1-44.9 L 411) MEAN CORPUSCULAR VOLUME (BEAKER) 90.2 fL 79.4-94.8 (test code = 753) MEAN CORPUSCULAR HEMOGLOBIN 28.6 pg 25.6-32.2 (BEAKER) (test code = 751) MEAN CORPUSCULAR HEMOGLOBIN CONC 31.7 GM/DL 32.2-35.5 L (BEAKER) (test code = 752) RED CELL DISTRIBUTION WIDTH 15.9 % 11.7-14.4 H (BEAKER) (test code = 412) PLATELET COUNT (BEAKER) (test 233 K/CU MM 150-450 code = 756) MEAN PLATELET VOLUME (BEAKER) 9.8 fL 9.4-12.3 (test code = 754) NUCLEATED RED BLOOD CELLS 0 /100 WBC 0-0 (BEAKER) (test code = 413) NEUTROPHILS RELATIVE PERCENT 66 % (BEAKER) (test code = 429) LYMPHOCYTES RELATIVE PERCENT 14 % (BEAKER) (test code = 430) MONOCYTES RELATIVE PERCENT 10 % (BEAKER) (test code = 431) EOSINOPHILS RELATIVE PERCENT 4 % (BEAKER) (test code = 432) BASOPHILS RELATIVE PERCENT 1 % (BEAKER) (test code = 437) NEUTROPHILS ABSOLUTE COUNT 4.02 K/ L 1.56-6.13 (BEAKER) (test code = 670) LYMPHOCYTES ABSOLUTE COUNT 0.87 K/ L 1.18-3.74 L (BEAKER) (test code = 414) MONOCYTES ABSOLUTE COUNT (AKER) 0.58 K/ L 0.24-0.36 H (test code = 415) EOSINOPHILS ABSOLUTE COUNT 0.22 K/ L 0.04-0.36 (AKER) (test code = 416) BASOPHILS ABSOLUTE COUNT ([facility]) 0.05 K/ L 0.01-0.08 (test code = 417) IMMATURE GRANULOCYTES-RELATIVE 5 % 0-1 H PERCENT ([facility]) (test code = 2801) POCT-GLUCOSE [id number] 22:30:00 Test Item Value Reference Range Interpretation Comments POC-GLUCOSE METER 136 mg/dL 70-110 H TESTED AT [place] [address] ([facility]) (test code = [facility] 1538) [id number] HEMOGLOBIN AND [id number] 20:54:00 Test Item Value Reference Range Interpretation Comments HEMOGLOBIN ([facility]) (test code = 8.4 GM/DL 11.2-15.7 L 410) HEMATOCRIT ([facility]) (test code = 25.9 % 34.1-44.9 L 411) POCT-GLUCOSE [id number] 14:17:00 Test Item Value Reference Range Interpretation Comments POC-GLUCOSE METER 156 mg/dL 70-110 H TESTED AT [place] [address] ([facility]) (test code = [facility] 1538) [address] POCT-GLUCOSE [id number] 09:03:00 Test Item Value Reference Range Interpretation Comments POC-GLUCOSE METER 102 mg/dL 70-110 TESTED AT [place] [address] ([facility]) (test code = [facility] 1538) [address] [id number] 05:06:00 Test Item Value Reference Range Interpretation Comments PARTIAL THROMBOPLASTIN TIME 33.8 seconds 22.5-36.0 ([facility]) (test code = 760) PROTHROMBIN [id number] 05:05:00 Test Item Value Reference Range Interpretation Comments PROTIME ([facility]) (test code = 14.6 seconds 11.7-14.7 759) INR ([facility]) (test code = 370) 1.1 <=5.9 RECOMMENDED COUMADIN/WARFARIN INR THERAPY RANGESSTANDARD DOSE: 2.0 - 3.0 Includes: PROPHYLAXIS forvenous thrombosis, systemic embolization; TREATMENT for venous thrombosis and/or pulmonary embolus.HIGH RISK: Target INR is 2.5-3.5 for patients with mechanical heart valves.CBC W/PLT COUNT & AUTO DIFFERENTIAL 2017-11-09 04:33:00 Test Item Value Reference Range Interpretation Comments WHITE BLOOD CELL COUNT (BEAKER) 5.8 K/ L 3.5-10.5 (test code = 775) RED BLOOD CELL COUNT (BEAKER) 2.74 M/ L 3.93-5.22 L (test code = 761) HEMOGLOBIN (BEAKER) (test code = 7.9 GM/DL 11.2-15.7 L 410) HEMATOCRIT (BEAKER) (test code = 24.4 % 34.1-44.9 L 411) MEAN CORPUSCULAR VOLUME (BEAKER) 89.1 fL 79.4-94.8 (test code = 753) MEAN CORPUSCULAR HEMOGLOBIN 28.8 pg 25.6-32.2 (BEAKER) (test code = 751) MEAN CORPUSCULAR HEMOGLOBIN CONC 32.4 GM/DL 32.2-35.5 (BEAKER) (test code = 752) RED CELL DISTRIBUTION WIDTH 15.6 % 11.7-14.4 H (BEAKER) (test code = 412) PLATELET COUNT (BEAKER) (test 202 K/CU MM 150-450 code = 756) MEAN PLATELET VOLUME (BEAKER) 9.9 fL 9.4-12.3 (test code = 754) NUCLEATED RED BLOOD CELLS 0 /100 WBC 0-0 (BEAKER) (test code = 413) NEUTROPHILS RELATIVE PERCENT 62 % (BEAKER) (test code = 429) LYMPHOCYTES RELATIVE PERCENT 15 % (BEAKER) (test code = 430) MONOCYTES RELATIVE PERCENT 13 % (BEAKER) (test code = 431) EOSINOPHILS RELATIVE PERCENT 4 % (BEAKER) (test code = 432) BASOPHILS RELATIVE PERCENT 1 % (BEAKER) (test code = 437) NEUTROPHILS ABSOLUTE COUNT 3.57 K/ L 1.56-6.13 (BEAKER) (test code = 670) LYMPHOCYTES ABSOLUTE COUNT 0.89 K/ L 1.18-3.74 L (BEAKER) (test code = 414) MONOCYTES ABSOLUTE COUNT (BEAKER) 0.73 K/ L 0.24-0.36 H (test code = 415) EOSINOPHILS ABSOLUTE COUNT 0.23 K/ L 0.04-0.36 ([facility]) (test code = 416) BASOPHILS ABSOLUTE COUNT ([facility]) 0.06 K/ L 0.01-0.08 (test code = 417) IMMATURE GRANULOCYTES-RELATIVE 5 % 0-1 H PERCENT ([facility]) (test code = 2801) HEMOGLOBIN AND [id number] 22:12:00 Test Item Value Reference Range Interpretation Comments HEMOGLOBIN ([facility]) (test code = 8.2 GM/DL 11.2-15.7 L 410) HEMATOCRIT ([facility]) (test code = 25.2 % 34.1-44.9 L 411) POCT-GLUCOSE [id number] 21:23:00 Test Item Value Reference Range Interpretation Comments POC-GLUCOSE METER 131 mg/dL 70-110 H TESTED AT [place] [address] ([facility]) (test code = [facility] 1538) [id number] POCT-GLUCOSE [id number] 17:37:00 Test Item Value Reference Range Interpretation Comments POC-GLUCOSE METER 108 mg/dL 70-110 TESTED AT [place] [address] ([facility]) (test code = [facility] 1538) [address] POCT-GLUCOSE [id number] 17:12:00 Test Item Value Reference Range Interpretation Comments POC-GLUCOSE METER 140 mg/dL 70-110 H TESTED AT [place] [address] ([facility]) (test code = [facility] 1538) [address] [id number] 12:45:00 Test Item Value Reference Range Interpretation Comments PARTIAL THROMBOPLASTIN TIME 87.6 seconds 22.5-36.0 H ([facility]) (test code = 760) HEMOGLOBIN AND [id number] 12:35:00 Test Item Value Reference Range Interpretation Comments HEMOGLOBIN ([facility]) (test code = 8.7 GM/DL 11.2-15.7 L 410) HEMATOCRIT ([facility]) (test code = 26.3 % 34.1-44.9 L 411) POCT-GLUCOSE [id number] 08:23:00 Test Item Value Reference Range Interpretation Comments POC-GLUCOSE METER 123 mg/dL 70-110 H TESTED AT [place] [address] ([facility]) (test code = [facility] 1538) [id number] 05:22:00 Test Item Value Reference Range Interpretation Comments PARTIAL THROMBOPLASTIN TIME 97.2 seconds 22.5-36.0 H (BEAKER) (test code = 760) [id number] 05:21:00 Test Item Value Reference Range Interpretation Comments FIBRINOGEN LEVEL (BEAKER) (test 504 mg/dl 225-434 H code = 658) PROTHROMBIN [id number] 05:20:00 Test Item Value Reference Range Interpretation Comments PROTIME (BEAKER) (test code = 14.8 seconds 11.7-14.7 H 759) INR (BEAKER) (test code = 370) 1.2 <=5.9 RECOMMENDED COUMADIN/WARFARIN INR THERAPY RANGESSTANDARD DOSE: 2.0 - 3.0 Includes: PROPHYLAXIS forvenous thrombosis, systemic embolization; TREATMENT for venous thrombosis and/or pulmonary embolus.HIGH RISK: Target INR is 2.5-3.5 for patients with mechanical heart valves.CBC W/PLT COUNT & AUTO DIFFERENTIAL 2017-11-08 05:06:00 Test Item Value Reference Range Interpretation Comments WHITE BLOOD CELL COUNT (BEAKER) 6.7 K/ L 3.5-10.5 (test code = 775) RED BLOOD CELL COUNT (BEAKER) 2.88 M/ L 3.93-5.22 L (test code = 761) HEMOGLOBIN (BEAKER) (test code = 8.3 GM/DL 11.2-15.7 L 410) HEMATOCRIT (BEAKER) (test code = 25.6 % 34.1-44.9 L 411) MEAN CORPUSCULAR VOLUME (BEAKER) 88.9 fL 79.4-94.8 (test code = 753) MEAN CORPUSCULAR HEMOGLOBIN 28.8 pg 25.6-32.2 (BEAKER) (test code = 751) MEAN CORPUSCULAR HEMOGLOBIN CONC 32.4 GM/DL 32.2-35.5 (BEAKER) (test code = 752) RED CELL DISTRIBUTION WIDTH 15.4 % 11.7-14.4 H (BEAKER) (test code = 412) PLATELET COUNT (BEAKER) (test 201 K/CU MM 150-450 code = 756) MEAN PLATELET VOLUME (BEAKER) 10.0 fL 9.4-12.3 (test code = 754) NUCLEATED RED BLOOD CELLS 0 /100 WBC 0-0 (BEAKER) (test code = 413) NEUTROPHILS RELATIVE PERCENT 66 % (BEAKER) (test code = 429) LYMPHOCYTES RELATIVE PERCENT 14 % (BEAKER) (test code = 430) MONOCYTES RELATIVE PERCENT 13 % (BEAKER) (test code = 431) EOSINOPHILS RELATIVE PERCENT 4 % (BEAKER) (test code = 432) BASOPHILS RELATIVE PERCENT 1 % (BEAKER) (test code = 437) NEUTROPHILS ABSOLUTE COUNT 4.41 K/ L 1.56-6.13 (BEAKER) (test code = 670) LYMPHOCYTES ABSOLUTE COUNT 0.92 K/ L 1.18-3.74 L (BEAKER) (test code = 414) MONOCYTES ABSOLUTE COUNT (BEAKER) 0.88 K/ L 0.24-0.36 H (test code = 415) EOSINOPHILS ABSOLUTE COUNT 0.23 K/ L 0.04-0.36 (BEAKER) (test code = 416) BASOPHILS ABSOLUTE COUNT (BEAKER) 0.04 K/ L 0.01-0.08 (test code = 417) IMMATURE GRANULOCYTES-RELATIVE 3 % 0-1 H PERCENT (BEAKER) (test code = 2801) [id number] 21:52:00 Test Item Value Reference Range Interpretation Comments PARTIAL THROMBOPLASTIN TIME 62.3 seconds 22.5-36.0 H (BEAKER) (test code = 760) HEMOGLOBIN AND [id number] 21:39:00 Test Item Value Reference Range Interpretation Comments HEMOGLOBIN (BEAKER) (test code = 7.9 GM/DL 11.2-15.7 L 410) HEMATOCRIT (BEAKER) (test code = 23.8 % 34.1-44.9 L 411) POCT-GLUCOSE [id number] 20:54:00 Test Item Value Reference Range Interpretation Comments POC-GLUCOSE METER 157 mg/dL 70-110 H TESTED AT [facility] 6720 (BEAKER) (test code = [place] 1538) [address] POCT-GLUCOSE [id number] 16:41:00 Test Item Value Reference Range Interpretation Comments POC-GLUCOSE METER 129 mg/dL 70-110 H TESTED AT [facility] 6720 (BEAKER) (test code = [place] 1538) [address] [id number] 14:53:00 Test Item Value Reference Range Interpretation Comments PARTIAL THROMBOPLASTIN TIME 30.2 seconds 22.5-36.0 (BEAKER) (test code = 760) [id number] 11:42:00 Test Item Value Reference Range Interpretation Comments PARTIAL THROMBOPLASTIN TIME 123.9 seconds 22.5-36.0 H (BEAKER) (test code = 760) POCT-GLUCOSE [id number] 10:48:00 Test Item Value Reference Range Interpretation Comments POC-GLUCOSE METER 128 mg/dL 70-110 H TESTED AT [facility] 6720 (BEAKER) (test code = [place] 1538) [address] URINE [id number] 10:25:00 Test Item Value Reference Range Interpretation Comments CULTURE (BEAKER) (test code = 1095) No growth HEMOGLOBIN AND [id number] 07:17:00 Test Item Value Reference Range Interpretation Comments HEMOGLOBIN (BEAKER) (test code = 8.3 GM/DL 11.2-15.7 L 410) HEMATOCRIT (BEAKER) (test code = 24.7 % 34.1-44.9 L 411) VITAMIN B12 AND [id number] 04:03:00 Test Item Value Reference Range Interpretation Comments VITAMIN B12 (BEAKER) (test code = 1003 pg/mL 213-816 H 774) FOLATE (BEAKER) (test code = 362) 8.3 ng/mL >=7.0 [id number] 03:36:00 Test Item Value Reference Range Interpretation Comments HAPTOGLOBIN (BEAKER) (test code = 280 mg/dL 14-258 H 366) BASIC METABOLIC [id number] 03:11:00 Test Item Value Reference Range Interpretation Comments SODIUM (BEAKER) 134 meq/L 136-145 L (test code = 381) POTASSIUM (BEAKER) 4.1 meq/L 3.5-5.1 (test code = 379) CHLORIDE (BEAKER) 104 meq/L 98-107 (test code = 382) CO2 (BEAKER) (test 24 meq/L 22-29 code = 355) BLOOD UREA NITROGEN 23 mg/dL 7-21 H (BEAKER) (test code = 354) CREATININE (BEAKER) 1.22 mg/dL 0.57-1.25 (test code = 358) GLUCOSE RANDOM 110 mg/dL 70-105 H (BEAKER) (test code = 652) CALCIUM (BEAKER) 7.9 mg/dL 8.4-10.2 L (test code = 697) EGFR (BEAKER) (test 43 mL/min/1.73 ESTIMA MICHELLE GFR IS code = 1092) sq m NOT ACCURATE CREATININE CLEARANCE IN PREDICTING GLOMERULAR FILTRATION RATE . ESTIMATED GFR I S NOT APPLICABLE FOR DIALYSIS PATIEN TS. [id number] 03:07:00 Test Item Value Reference Range Interpretation Comments MAGNESIUM (BEAKER) (test code = 2.3 mg/dL 1.6-2.6 627) LACTATE DEHYDROGENASE (LDH)2017-11-07 03:07:00 Test Item Value Reference Range Interpretation Comments LACTATE DEHYDROGENASE (BEAKER) (test 519 U/L 125-220 H code = 635) [id number] 03:00:00 Test Item Value Reference Range Interpretation Comments PARTIAL THROMBOPLASTIN TIME 75.1 seconds 22.5-36.0 H (BEAKER) (test code = 760) CBC W/PLT COUNT & AUTO [id number] 02:58:00 Test Item Value Reference Range Interpretation Comments WHITE BLOOD CELL COUNT (BEAKER) 5.3 K/ L 3.5-10.5 (test code = 775) RED BLOOD CELL COUNT (BEAKER) 2.49 M/ L 3.93-5.22 L (test code = 761) HEMOGLOBIN (BEAKER) (test code = 7.2 GM/DL 11.2-15.7 L 410) HEMATOCRIT (BEAKER) (test code = 22.0 % 34.1-44.9 L 411) MEAN CORPUSCULAR VOLUME (BEAKER) 88.4 fL 79.4-94.8 (test code = 753) MEAN CORPUSCULAR HEMOGLOBIN 28.9 pg 25.6-32.2 (BEAKER) (test code = 751) MEAN CORPUSCULAR HEMOGLOBIN CONC 32.7 GM/DL 32.2-35.5 (BEAKER) (test code = 752) RED CELL DISTRIBUTION WIDTH 15.2 % 11.7-14.4 H (BEAKER) (test code = 412) PLATELET COUNT (BEAKER) (test 145 K/CU MM 150-450 L code = 756) MEAN PLATELET VOLUME (BEAKER) 11.0 fL 9.4-12.3 (test code = 754) NUCLEATED RED BLOOD CELLS 0 /100 WBC 0-0 (BEAKER) (test code = 413) NEUTROPHILS RELATIVE PERCENT 74 % (BEAKER) (test code = 429) LYMPHOCYTES RELATIVE PERCENT 13 % (BEAKER) (test code = 430) MONOCYTES RELATIVE PERCENT 10 % (BEAKER) (test code = 431) EOSINOPHILS RELATIVE PERCENT 2 % (BEAKER) (test code = 432) BASOPHILS RELATIVE PERCENT 0 % (BEAKER) (test code = 437) NEUTROPHILS ABSOLUTE COUNT 3.94 K/ L 1.56-6.13 (BEAKER) (test code = 670) LYMPHOCYTES ABSOLUTE COUNT 0.67 K/ L 1.18-3.74 L (BEAKER) (test code = 414) MONOCYTES ABSOLUTE COUNT (BEAKER) 0.50 K/ L 0.24-0.36 H (test code = 415) EOSINOPHILS ABSOLUTE COUNT 0.09 K/ L 0.04-0.36 (BEAKER) (test code = 416) BASOPHILS ABSOLUTE COUNT (BEAKER) 0.02 K/ L 0.01-0.08 (test code = 417) IMMATURE GRANULOCYTES-RELATIVE 1 % 0-1 PERCENT (BEAKER) (test code = 2801) PROTHROMBIN [id number] 02:58:00 Test Item Value Reference Range Interpretation Comments PROTIME (BEAKER) (test code = 15.1 seconds 11.7-14.7 H 759) INR (BEAKER) (test code = 370) 1.2 <=5.9 RECOMMENDED COUMADIN/WARFARIN INR THERAPY RANGESSTANDARD DOSE: 2.0 - 3.0 Includes: PROPHYLAXIS forvenous thrombosis, systemic embolization; TREATMENT for venous thrombosis and/or pulmonary embolus.HIGH RISK: Target INR is 2.5-3.5 for patients with mechanical heart valves.RETICULOCYTE [id number] 02:53:00 Test Item Value Reference Range Interpretation Comments RETICULOCYTE COUNT PCT (BEAKER) (test 3.0 % 0.5-1.7 H code = 575) [id number] 01:47:00 Test Item Value Reference Range Interpretation Comments PARTIAL THROMBOPLASTIN TIME 178.8 seconds 22.5-36.0 HH (BEAKER) (test code = 760) HEMOGLOBIN AND [id number] 01:14:00 Test Item Value Reference Range Interpretation Comments HEMOGLOBIN (BEAKER) (test code = 8.2 GM/DL 11.2-15.7 L 410) HEMATOCRIT (BEAKER) (test code = 25.0 % 34.1-44.9 L 411) POCT-GLUCOSE [id number] 00:18:00 Test Item Value Reference Range Interpretation Comments POC-GLUCOSE METER 133 mg/dL 70-110 H TESTED AT [facility] 6720 (BEAKER) (test code = [place] 1538) [id number] 18:47:00 Test Item Value Reference Range Interpretation Comments PARTIAL THROMBOPLASTIN TIME 101.9 seconds 22.5-36.0 H (BEAKER) (test code = 760) HEMOGLOBIN AND [id number] 18:33:00 Test Item Value Reference Range Interpretation Comments HEMOGLOBIN (BEAKER) (test code = 8.8 GM/DL 11.2-15.7 L 410) HEMATOCRIT (BEAKER) (test code = 26.0 % 34.1-44.9 L 411) OCCULT BLOOD, [id number] 15:27:00 Test Item Value Reference Range Interpretation Comments FECAL OCCULT BLOOD (BEAKER) (test Negative Negative code = 618) BASIC METABOLIC [id number] 14:55:00 Test Item Value Reference Range Interpretation Comments SODIUM (BEAKER) 130 meq/L 136-145 L (test code = 381) POTASSIUM (BEAKER) 3.7 meq/L 3.5-5.1 (test code = 379) CHLORIDE (BEAKER) 98 meq/L 98-107 (test code = 382) CO2 (BEAKER) (test 21 meq/L 22-29 L code = 355) BLOOD UREA NITROGEN 25 mg/dL 7-21 H (BEAKER) (test code = 354) CREATININE (BEAKER) 1.33 mg/dL 0.57-1.25 H (test code = 358) GLUCOSE RANDOM 206 mg/dL 70-105 H (BEAKER) (test code = 652) CALCIUM (BEAKER) 11.2 mg/dL 8.4-10.2 H (test code = 697) EGFR (BEAKER) (test 39 mL/min/1.73 ESTIMA MICHELLE GFR IS code = 1092) sq m NOT ACCURATE CREATININE CLEARANCE IN PREDICTING GLOMERULAR FILTRATION RATE . ESTIMATED GFR I S NOT APPLICABLE FOR DIALYSIS PATIEN TS. [id number] 14:54:00 Test Item Value Reference Range Interpretation Comments MAGNESIUM (BEAKER) (test code = 3.2 mg/dL 1.6-2.6 H 627) HEMOGLOBIN AND [id number] 12:43:00 Test Item Value Reference Range Interpretation Comments HEMOGLOBIN (BEAKER) (test code = 8.9 GM/DL 11.2-15.7 L 410) HEMATOCRIT (BEAKER) (test code = 26.3 % 34.1-44.9 L 411) [id number] 12:35:00 Test Item Value Reference Range Interpretation Comments PARTIAL THROMBOPLASTIN TIME 56.6 seconds 22.5-36.0 H (BEAKER) (test code = 760) POCT-GLUCOSE [id number] 12:13:00 Test Item Value Reference Range Interpretation Comments POC-GLUCOSE METER 125 mg/dL 70-110 H TESTED AT [facility] 6720 (BEAKER) ([facility] 1538) [address] BASIC METABOLIC [id number] 06:31:00 Test Item Value Reference Range Interpretation Comments SODIUM (BEAKER) 136 meq/L 136-145 (test code = 381) POTASSIUM (BEAKER) 2.7 meq/L 3.5-5.1 L (test code = 379) CHLORIDE (BEAKER) 109 meq/L 98-107 H (test code = 382) CO2 (BEAKER) (test 21 meq/L 22-29 L code = 355) BLOOD UREA NITROGEN 22 mg/dL 7-21 H (BEAKER) (test code = 354) CREATININE (BEAKER) 1.05 mg/dL 0.57-1.25 (test code = 358) GLUCOSE RANDOM 109 mg/dL 70-105 H (BEAKER) (test code = 652) CALCIUM (BEAKER) 6.5 mg/dL 8.4-10.2 L (test code = 697) EGFR (BEAKER) (test 51 mL/min/1.73 ESTIMA MICHELLE GFR IS code = 1092) sq m NOT ACCURATE CREATININE CLEARANCE IN PREDICTING GLOMERULAR FILTRATION RATE . ESTIMATED GFR I S NOT APPLICABLE FOR DIALYSIS PATIEN TS. [id number] 06:29:00 Test Item Value Reference Range Interpretation Comments MAGNESIUM (BEAKER) (test code = 1.3 mg/dL 1.6-2.6 L 627) [id number] 06:10:00 Test Item Value Reference Range Interpretation Comments PARTIAL THROMBOPLASTIN TIME 96.8 seconds 22.5-36.0 H (BEAKER) (test code = 760) PROTHROMBIN [id number] 06:08:00 Test Item Value Reference Range Interpretation Comments PROTIME (BEAKER) (test code = 17.5 seconds 11.7-14.7 H 759) INR (BEAKER) (test code = 370) 1.4 <=5.9 RECOMMENDED COUMADIN/WARFARIN INR THERAPY RANGESSTANDARD DOSE: 2.0 - 3.0 Includes: PROPHYLAXIS forvenous thrombosis, systemic embolization; TREATMENT for venous thrombosis and/or pulmonary embolus.HIGH RISK: Target INR is 2.5-3.5 for patients with mechanical heart valves.CBC W/PLT COUNT & AUTO DIFFERENTIAL 2017-11-06 06:04:00 Test Item Value Reference Range Interpretation Comments WHITE BLOOD CELL COUNT (BEAKER) 7.5 K/ L 3.5-10.5 (test code = 775) RED BLOOD CELL COUNT (BEAKER) 2.28 M/ L 3.93-5.22 L (test code = 761) HEMOGLOBIN (BEAKER) (test code = 6.6 GM/DL 11.2-15.7 L 410) HEMATOCRIT (BEAKER) (test code = 20.3 % 34.1-44.9 L 411) MEAN CORPUSCULAR VOLUME (BEAKER) 89.0 fL 79.4-94.8 (test code = 753) MEAN CORPUSCULAR HEMOGLOBIN 28.9 pg 25.6-32.2 (BEAKER) (test code = 751) MEAN CORPUSCULAR HEMOGLOBIN CONC 32.5 GM/DL 32.2-35.5 (BEAKER) (test code = 752) RED CELL DISTRIBUTION WIDTH 15.9 % 11.7-14.4 H (BEAKER) (test code = 412) PLATELET COUNT (BEAKER) (test 128 K/CU MM 150-450 L code = 756) MEAN PLATELET VOLUME (BEAKER) 10.3 fL 9.4-12.3 (test code = 754) NUCLEATED RED BLOOD CELLS 0 /100 WBC 0-0 (BEAKER) (test code = 413) NEUTROPHILS RELATIVE PERCENT 81 % (BEAKER) (test code = 429) LYMPHOCYTES RELATIVE PERCENT 9 % (BEAKER) (test code = 430) MONOCYTES RELATIVE PERCENT 8 % (BEAKER) (test code = 431) EOSINOPHILS RELATIVE PERCENT 1 % (BEAKER) (test code = 432) BASOPHILS RELATIVE PERCENT 0 % (BEAKER) (test code = 437) NEUTROPHILS ABSOLUTE COUNT 6.05 K/ L 1.56-6.13 (BEAKER) (test code = 670) LYMPHOCYTES ABSOLUTE COUNT 0.63 K/ L 1.18-3.74 L (BEAKER) (test code = 414) MONOCYTES ABSOLUTE COUNT (BEAKER) 0.58 K/ L 0.24-0.36 H (test code = 415) EOSINOPHILS ABSOLUTE COUNT 0.07 K/ L 0.04-0.36 (BEAKER) (test code = 416) BASOPHILS ABSOLUTE COUNT (BEAKER) 0.02 K/ L 0.01-0.08 (test code = 417) IMMATURE GRANULOCYTES-RELATIVE 1 % 0-1 PERCENT (BEAKER) (test code = 2801) [id number] 23:37:00 Test Item Value Reference Range Interpretation Comments PARTIAL THROMBOPLASTIN TIME 92.4 seconds 22.5-36.0 H (BEAKER) (test code = 760) POCT-GLUCOSE [id number] 22:46:00 Test Item Value Reference Range Interpretation Comments POC-GLUCOSE METER 134 mg/dL 70-110 H TEST[facility] AT [place] [address] [facility] 1538) [id number] 22:16:00 Test Item Value Reference Range Interpretation Comments PARTIAL THROMBOPLASTIN TIME 136.8 seconds 22.5-36.0 H (BEAKER) (test code = 760) POCT-GLUCOSE [id number] 17:24:00 Test Item Value Reference Range Interpretation Comments POC-GLUCOSE METER 154 mg/dL 70-110 H TESTED AT [place] [address] [facility] 1538) [id number] HEMOGLOBIN AND [id number] 16:16:00 Test Item Value Reference Range Interpretation Comments HEMOGLOBIN (BEAKER) (test code = 7.3 GM/DL 11.2-15.7 L 410) HEMATOCRIT (BEAKER) (test code = 22.2 % 34.1-44.9 L 411) CBC (HEMOGRAM ONLY)2017-11-05 16:16:00 Test Item Value Reference Range Interpretation Comments WHITE BLOOD CELL COUNT (BEAKER) 12.0 K/ L 3.5-10.5 H (test code = 775) RED BLOOD CELL COUNT (BEAKER) 2.50 M/ L 3.93-5.22 L (test code = 761) HEMOGLOBIN (BEAKER) (test code = 7.3 GM/DL 11.2-15.7 L 410) HEMATOCRIT (BEAKER) (test code = 22.2 % 34.1-44.9 L 411) MEAN CORPUSCULAR VOLUME (BEAKER) 88.8 fL 79.4-94.8 (test code = 753) MEAN CORPUSCULAR HEMOGLOBIN 29.2 pg 25.6-32.2 (BEAKER) (test code = 751) MEAN CORPUSCULAR HEMOGLOBIN CONC 32.9 GM/DL 32.2-35.5 (BEAKER) (test code = 752) RED CELL DISTRIBUTION WIDTH 16.1 % 11.7-14.4 H (BEAKER) (test code = 412) PLATELET COUNT (BEAKER) (test 148 K/CU MM 150-450 L code = 756) MEAN PLATELET VOLUME (BEAKER) 10.7 fL 9.4-12.3 (test code = 754) NUCLEATED RED BLOOD CELLS 0 /100 WBC 0-0 (BEAKER) (test code = 413) [id number] 15:02:00 Test Item Value Reference Range Interpretation Comments PARTIAL THROMBOPLASTIN TIME 48.6 seconds 22.5-36.0 H (BEAKER) (test code = 760) 6 hours after starting heparin infusion and as indicated per sliding scalePOCT- GLUCOSE [id number] 12:05:00 Test Item Value Reference Range Interpretation Comments POC-GLUCOSE METER 153 mg/dL 70-110 H TESTED AT [facility] 6720 (BEAKER) (test code = [facility] 1538) [id number] HEMOGLOBIN AND [id number] 09:58:00 Test Item Value Reference Range Interpretation Comments HEMOGLOBIN (BEAKER) (test code = 7.4 GM/DL 11.2-15.7 L 410) HEMATOCRIT (BEAKER) (test code = 22.3 % 34.1-44.9 L 411) [id number] 05:15:00 Test Item Value Reference Range Interpretation Comments PARTIAL THROMBOPLASTIN TIME 175.4 seconds 22.5-36.0 HH (BEAKER) (test code = 760) BASIC METABOLIC [id number] 04:51:00 Test Item Value Reference Range Interpretation Comments SODIUM (BEAKER) 133 meq/L 136-145 L (test code = 381) POTASSIUM (BEAKER) 3.8 meq/L 3.5-5.1 (test code = 379) CHLORIDE (BEAKER) 107 meq/L 98-107 (test code = 382) CO2 (BEAKER) (test 17 meq/L 22-29 L code = 355) BLOOD UREA NITROGEN 30 mg/dL 7-21 H (BEAKER) (test code = 354) CREATININE (BEAKER) 1.70 mg/dL 0.57-1.25 H (test code = 358) GLUCOSE RANDOM 180 mg/dL 70-105 H (BEAKER) (test code = 652) CALCIUM (BEAKER) 7.1 mg/dL 8.4-10.2 L (test code = 697) EGFR (BEAKER) (test 29 mL/min/1.73 ESTIMA MICHELLE GFR IS code = 1092) sq m NOT ACCURATE CREATININE CLEARANCE IN PREDICTING GLOMERULAR FILTRATION RATE . ESTIMATED GFR I S NOT APPLICABLE FOR DIALYSIS PATIEN TS. [id number] 04:50:00 Test Item Value Reference Range Interpretation Comments MAGNESIUM (BEAKER) (test code = 1.4 mg/dL 1.6-2.6 L 627) CBC W/PLT COUNT & AUTO [id number] 04:27:00 Test Item Value Reference Range Interpretation Comments WHITE BLOOD CELL COUNT (BEAKER) 11.1 K/ L 3.5-10.5 H (test code = 775) RED BLOOD CELL COUNT (BEAKER) 2.77 M/ L 3.93-5.22 L (test code = 761) HEMOGLOBIN (BEAKER) (test code = 8.0 GM/DL 11.2-15.7 L 410) HEMATOCRIT (BEAKER) (test code = 24.8 % 34.1-44.9 L 411) MEAN CORPUSCULAR VOLUME (BEAKER) 89.5 fL 79.4-94.8 (test code = 753) MEAN CORPUSCULAR HEMOGLOBIN 28.9 pg 25.6-32.2 (BEAKER) (test code = 751) MEAN CORPUSCULAR HEMOGLOBIN CONC 32.3 GM/DL 32.2-35.5 (BEAKER) (test code = 752) RED CELL DISTRIBUTION WIDTH 16.4 % 11.7-14.4 H (BEAKER) (test code = 412) PLATELET COUNT (BEAKER) (test 144 K/CU MM 150-450 L code = 756) MEAN PLATELET VOLUME (BEAKER) 11.1 fL 9.4-12.3 (test code = 754) NUCLEATED RED BLOOD CELLS 0 /100 WBC 0-0 (BEAKER) (test code = 413) NEUTROPHILS RELATIVE PERCENT 79 % (BEAKER) (test code = 429) LYMPHOCYTES RELATIVE PERCENT 11 % (BEAKER) (test code = 430) MONOCYTES RELATIVE PERCENT 9 % (BEAKER) (test code = 431) EOSINOPHILS RELATIVE PERCENT 0 % (BEAKER) (test code = 432) BASOPHILS RELATIVE PERCENT 0 % (BEAKER) (test code = 437) NEUTROPHILS ABSOLUTE COUNT 8.79 K/ L 1.56-6.13 H (BEAKER) (test code = 670) LYMPHOCYTES ABSOLUTE COUNT 1.17 K/ L 1.18-3.74 L (BEAKER) (test code = 414) MONOCYTES ABSOLUTE COUNT (BEAKER) 0.95 K/ L 0.24-0.36 H (test code = 415) EOSINOPHILS ABSOLUTE COUNT 0.01 K/ L 0.04-0.36 L (BEAKER) (test code = 416) BASOPHILS ABSOLUTE COUNT (BEAKER) 0.03 K/ L 0.01-0.08 (test code = 417) IMMATURE GRANULOCYTES-RELATIVE 1 % 0-1 PERCENT (BEAKER) (test code = 2801) PROTHROMBIN [id number] 04:25:00 Test Item Value Reference Range Interpretation Comments PROTIME (BEAKER) (test code = 18.8 seconds 11.7-14.7 H 759) INR (BEAKER) (test code = 370) 1.6 <=5.9 RECOMMENDED COUMADIN/WARFARIN INR THERAPY RANGESSTANDARD DOSE: 2.0 - 3.0 Includes: PROPHYLAXIS forvenous thrombosis, systemic embolization; TREATMENT for venous thrombosis and/or pulmonary embolus.HIGH RISK: Target INR is 2.5-3.5 for patients with mechanical heart valves.[id number] 15:51:00 Test Item Value Reference Range Interpretation Comments FERRITIN (BEAKER) (test code = 1279 ng/mL 5-275 H 361) IRON, TIBC, % SAT. (WITHOUT FERRITIN)2017-11-04 15:13:00 Test Item Value Reference Range Interpretation Comments IRON (BEAKER) (test code = 547) 20 ug/dL 40-160 L TOTAL IRON BINDING CAPACITY 174 ug/dL 250-450 L (BEAKER) (test code = 769) IRON % SATURATION (2) (BEAKER) 11 % 20-55 L (test code = 2590) [id number] 13:59:00 Test Item Value Reference Range Interpretation Comments PROTIME (BEAKER) (test code = 18.8 seconds 11.7-14.7 H 759) INR (BEAKER) (test code = 370) 1.6 <=5.9 PARTIAL THROMBOPLASTIN TIME 97.6 seconds 22.5-36.0 H (BEAKER) (test code = 760) RECOMMENDED COUMADIN/WARFARIN INR THERAPY RANGESSTANDARD DOSE: 2.0 - 3.0 Includes: PROPHYLAXIS forvenous thrombosis, systemic embolization; TREATMENT for venous thrombosis and/or pulmonary embolus.HIGH RISK: Target INR is 2.5-3.5 for patients with mechanical heart valves.CBC W/PLT COUNT & AUTO DIFFERENTIAL 2017-11-04 07:23:00 Test Item Value Reference Range Interpretation Comments WHITE BLOOD CELL COUNT (BEAKER) 11.2 K/ L 3.5-10.5 H (test code = 775) RED BLOOD CELL COUNT (BEAKER) 3.45 M/ L 3.93-5.22 L (test code = 761) HEMOGLOBIN (BEAKER) (test code = 9.9 GM/DL 11.2-15.7 L 410) HEMATOCRIT (BEAKER) (test code = 31.3 % 34.1-44.9 L 411) MEAN CORPUSCULAR VOLUME (BEAKER) 90.7 fL 79.4-94.8 (test code = 753) MEAN CORPUSCULAR HEMOGLOBIN 28.7 pg 25.6-32.2 (BEAKER) (test code = 751) MEAN CORPUSCULAR HEMOGLOBIN CONC 31.6 GM/DL 32.2-35.5 L (BEAKER) (test code = 752) RED CELL DISTRIBUTION WIDTH 16.0 % 11.7-14.4 H (BEAKER) (test code = 412) PLATELET COUNT (BEAKER) (test 143 K/CU MM 150-450 L code = 756) MEAN PLATELET VOLUME (BEAKER) 10.3 fL 9.4-12.3 (test code = 754) NUCLEATED RED BLOOD CELLS 0 /100 WBC 0-0 (BEAKER) (test code = 413) NEUTROPHILS RELATIVE PERCENT 89 % (BEAKER) (test code = 429) LYMPHOCYTES RELATIVE PERCENT 4 % (BEAKER) (test code = 430) MONOCYTES RELATIVE PERCENT 6 % (BEAKER) (test code = 431) EOSINOPHILS RELATIVE PERCENT 0 % (BEAKER) (test code = 432) BASOPHILS RELATIVE PERCENT 0 % (BEAKER) (test code = 437) NEUTROPHILS ABSOLUTE COUNT 9.90 K/ L 1.56-6.13 H (BEAKER) (test code = 670) LYMPHOCYTES ABSOLUTE COUNT 0.49 K/ L 1.18-3.74 L (BEAKER) (test code = 414) MONOCYTES ABSOLUTE COUNT (BEAKER) 0.68 K/ L 0.24-0.36 H (test code = 415) EOSINOPHILS ABSOLUTE COUNT 0.00 K/ L 0.04-0.36 L (BEAKER) (test code = 416) BASOPHILS ABSOLUTE COUNT (BEAKER) 0.02 K/ L 0.01-0.08 (test code = 417) IMMATURE GRANULOCYTES-RELATIVE 1 % 0-1 PERCENT (BEAKER) (test code = 2801) POCT-GLUCOSE [id number] 07:01:00 Test Item Value Reference Range Interpretation Comments POC-GLUCOSE METER 156 mg/dL 70-110 H TESTED AT [facility] 6720 (BEAKER) (test code = [facility] 1538) [address] [id number] 06:55:00 Test Item Value Reference Range Interpretation Comments PARTIAL THROMBOPLASTIN TIME 40.5 seconds 22.5-36.0 H (BEAKER) (test code = 760) PROTHROMBIN [id number] 06:54:00 Test Item Value Reference Range Interpretation Comments PROTIME (BEAKER) (test code = 16.8 seconds 11.7-14.7 H 759) INR (BEAKER) (test code = 370) 1.4 <=5.9 RECOMMENDED COUMADIN/WARFARIN INR THERAPY RANGESSTANDARD DOSE: 2.0 - 3.0 Includes: PROPHYLAXIS forvenous thrombosis, systemic embolization; TREATMENT for venous thrombosis and/or pulmonary embolus.HIGH RISK: Target INR is 2.5-3.5 for patients with mechanical heart valves.LACTIC ACID, VENOUS, WHOLE [id number] 06:50:00 Test Item Value Reference Range Interpretation Comments LACTATE BLOOD VENOUS (2) (BEAKER) 2.1 mmol/L 0.5-2.2 (test code = 2872) Effective 01/02/2016: Units/Reference Range ChangeNew: 0.5-2.2 mmol/L Previous: 5-20 mg/dLPT/[id number] 01:48:00 Test Item Value Reference Range Interpretation Comments PROTIME (BEAKER) (test code = 17.0 seconds 11.7-14.7 H 759) INR (BEAKER) (test code = 370) 1.4 <=5.9 PARTIAL THROMBOPLASTIN TIME 75.0 seconds 22.5-36.0 H (BEAKER) (test code = 760) RECOMMENDED COUMADIN/WARFARIN INR THERAPY RANGESSTANDARD DOSE: 2.0 - 3.0 Includes: PROPHYLAXIS forvenous thrombosis, systemic embolization; TREATMENT for venous thrombosis and/or pulmonary embolus.HIGH RISK: Target INR is 2.5-3.5 for patients with mechanical heart valves.URINALYSIS W/ [id number] 01:01:00 Test Item Value Reference Range Interpretation Comments COLOR (BEAKER) (test code = 470) Red CLARITY (BEAKER) (test code = Cloudy 469) SPECIFIC GRAVITY UA (BEAKER) 1.019 1.001-1.035 (test code = 468) PH UA (BEAKER) (test code = 467) 5.5 5.0-8.0 PROTEIN UA (BEAKER) (test code = 200 mg/dL Negative A 464) GLUCOSE UA (BEAKER) (test code = 50 mg/dL Negative A 365) KETONES UA (BEAKER) (test code = 10 mg/dL Negative A 371) BILIRUBIN UA (BEAKER) (test code Positive Negative A = 462) BLOOD UA (BEAKER) (test code = Large Negative A 461) NITRITE UA (BEAKER) (test code = Negative Negative 465) LEUKOCYTE ESTERASE UA (BEAKER) Large Negative A (test code = 466) UROBILINOGEN UA (BEAKER) (test 2.0 mg/dL 0.2-1.0 H code = 463) RBC UA (BEAKER) (test code = > /HPF 519) WBC UA (BEAKER) (test code = > /HPF 520) BACTERIA (BEAKER) (test code = Few 517) MUCUS (BEAKER) (test code = Few 1574) HYALINE CASTS (BEAKER) (test 139 /LPF code = 514) GRANULAR CASTS (BEAKER) (test 46 /LPF code = 515) SOURCE(BEAKER) (test code = Urine, [place] 7819) [id number] 00:06:00 Test Item Value Reference Range Interpretation Comments PROTIME (BEAKER) (test code = 16.9 seconds 11.7-14.7 H 759) INR (BEAKER) (test code = 370) 1.4 <=5.9 PARTIAL THROMBOPLASTIN TIME 179.3 seconds 22.5-36.0 HH (BEAKER) (test code = 760) RECOMMENDED COUMADIN/WARFARIN INR THERAPY RANGESSTANDARD DOSE: 2.0 - 3.0 Includes: PROPHYLAXIS forvenous thrombosis, systemic embolization; TREATMENT for venous thrombosis and/or pulmonary embolus.HIGH RISK: Target INR is 2.5-3.5 for patients with mechanical heart valves.CT, BRAIN, WITHOUT [id number] 00:00:00FINAL REPORT EXAM: CT head without contrast. CLINICAL HISTORY: Cerebral hemorrhage suspected COMPARISON: No prior study for comparison. TECHNIQUE: CT images of the head were obtained without intravenous contrast. This exam was performed according to our departmental dose optimi zation program which includes automated exposure control, adjustment of the mA and/or kV according to patient's size and/or use of iterative reconstructive technique. FINDINGS: There is a ventricular catheter entering via right frontal approach with tip at the level of the foramen of Monro. There is moderate ventriculomegaly. The basal cisterns are patent. There is confluent bilateral periventricularwhite matter hypodensity without mass effect which may represent moderate white matter microvascularischemic changes however superimposed transependymal resorption of CSF cannot be excluded. There isno demarcated acute territorial infarct. There is intracranial calcific atherosclerosis. There is a densely calcified lesion in the left thalamus without surrounding edema or mass effect measuring approximately 1.6 x 1.1 cm. There is no acute intracranial hemorrhage, extra-axial fluid collection or herniation. There are bilateral lens replacements. The visualized paranasal sinuses and tympanomastoid cavities are clear. There is no acute calvarial fracture. IMPRESSION: No acute intracranial hemorrhage or extra axial fluid collection. Right ventricular catheter in situ. 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 Confluent periventricular white matter hypodensity without mass effect, which may represent moderate white matter microvascular ischemic changes however superimposed transependymal resorption of CSF cannot be excluded. 1.6 x1.1 cm densely calcified left thalamic lesion without surrounding edema or mass effect. This may represent a sequela of prior infection/insult versus a calcified mass. Further evaluation with nonemergent contrast enhanced MRI would be helpful and may be performed as clinically warranted. Signed: Aury Gaeport Verified Date/Time: 11/04/2017 00:00:55 Reading Location: [address] Transitional Reading Room POCT- GLUCOSE [id number] 23:50:00 Test Item Value Reference Range Interpretation Comments POC-GLUCOSE METER 204 mg/dL 70-110 H TESTED AT [facility] 6720 ([facility]) (test code = [facility] 1538) [id number] TROPONIN [id number] 22:40:00 Test Item Value Reference Range Interpretation Comments TROPONIN I ([facility]) (test code = 0.69 ng/mL 0.00-0.03 [facility]) Troponin I (TnI) levels must be interpreted in the context of the presenting symptoms and the clinical findings. Elevated TnI levels indicate myocardial damage, but are not specific for ischemic heart disease. Elevated TnI levels are seen in patients with other cardiac conditions (including myocarditis and congestive heart failure), and slight TnI elevations occur in patients with other conditions, including sepsis, renal failure, acidosis, acute neurological disease, and persistent tachyarrhythmia.[id number] 22:39:00 Test Item Value Reference Range Interpretation Comments D-DIMER QUANTITATIVE (BEAKER) > MG/L FEU <0.50 H (test code = 671) Intended Use: The D-Dimer Assay can be used to aid in the diagnosis of Deep Vein Thrombosis (DVT) and Pulmonary Embolism Disease (PED).In patients with low pre- test probability, various studies concerning STA Liatest D-dimer test have reported that with a cutoff value of 0.50 MG/L FEU, the Negative Predictive Value (NPV) regarding the exclusion of thrombosis is within 95-100% range. CREATINE KINASE (CK), TOTAL AND [id number] 22:35:00 Test Item Value Reference Range Interpretation Comments CREATINE KINASE TOTAL (BEAKER) 28 U/L 29-200 L (test code = 380) CREATINE KINASE-MB (BEAKER) (test 3.0 ng/mL 0.0-6.6 code = 750) CREATINE KINASE-MB INDEX (BEAKER) 10.7 % (test code = 395) CK-MB Reference Range:<6.7 Normal6.7-10.0 Borderline>10.0 AbnormalB-TYPE NATRIURETIC FACTOR (BNP)2017-11-03 22:35:00 Test Item Value Reference Range Interpretation Comments B-TYPE NATRIURETIC PEPTIDE (BEAKER) 179 pg/mL 0-100 H (test code = 700) [id number] 22:31:00 Test Item Value Reference Range Interpretation Comments PARTIAL THROMBOPLASTIN TIME 199.7 seconds 22.5-36.0 HH (BEAKER) (test code = 760) Prior to initiating heparinHEPATIC FUNCTION [id number] 22:28:00 Test Item Value Reference Range Interpretation Comments TOTAL PROTEIN (BEAKER) (test code = 5.6 gm/dL 6.0-8.3 L 770) ALBUMIN (BEAKER) (test code = 1145) 3.2 g/dL 3.5-5.0 L BILIRUBIN TOTAL (BEAKER) (test code 0.4 mg/dL 0.2-1.2 = 377) BILIRUBIN DIRECT (BEAKER) (test 0.2 mg/dL 0.1-0.5 code = 706) ALKALINE PHOSPHATASE (BEAKER) (test 68 U/L 40-150 code = 346) AST (SGOT) (BEAKER) (test code = 20 U/L 5-34 353) ALT (SGPT) (BEAKER) (test code = 10 U/L 6-55 347) BASIC METABOLIC [id number] 22:28:00 Test Item Value Reference Range Interpretation Comments SODIUM (BEAKER) 138 meq/L 136-145 (test code = 381) POTASSIUM (BEAKER) 4.0 meq/L 3.5-5.1 (test code = 379) CHLORIDE (BEAKER) 104 meq/L 98-107 (test code = 382) CO2 (BEAKER) (test 21 meq/L 22-29 L code = 355) BLOOD UREA NITROGEN 18 mg/dL 7-21 (BEAKER) (test code = 354) CREATININE (BEAKER) 1.51 mg/dL 0.57-1.25 H (test code = 358) GLUCOSE RANDOM 185 mg/dL 70-105 H (BEAKER) (test code = 652) CALCIUM (BEAKER) 8.4 mg/dL 8.4-10.2 (test code = 697) EGFR (BEAKER) (test 33 mL/min/1.73 ESTIMA MICHELLE GFR IS code = 1092) sq m NOT ACCURATE CREATININE CLEARANCE IN PREDICTING GLOMERULAR FILTRATION RATE . ESTIMATED GFR I S NOT APPLICABLE FOR DIALYSIS PATIEN TS. LACTIC ACID, VENOUS, WHOLE [id number] 22:25:00 Test Item Value Reference Range Interpretation Comments LACTATE BLOOD VENOUS 2.2 mmol/L 0.5-2.2 Specime n slightly (2) (BEAKER) (test hemolyzed code = 2872) Effective 01/02/2016: Units/Reference Range ChangeNew: 0.5-2.2 mmol/L Previous: 5-20 mg/dLCBC W/PLT COUNT & AUTO [id number] 22:17:00 Test Item Value Reference Range Interpretation Comments WHITE BLOOD CELL COUNT (BEAKER) 11.0 K/ L 3.5-10.5 H (test code = 775) RED BLOOD CELL COUNT (BEAKER) 3.65 M/ L 3.93-5.22 L (test code = 761) HEMOGLOBIN (BEAKER) (test code = 10.5 GM/DL 11.2-15.7 L 410) HEMATOCRIT (BEAKER) (test code = 33.8 % 34.1-44.9 L 411) MEAN CORPUSCULAR VOLUME (BEAKER) 92.6 fL 79.4-94.8 (test code = 753) MEAN CORPUSCULAR HEMOGLOBIN 28.8 pg 25.6-32.2 (BEAKER) (test code = 751) MEAN CORPUSCULAR HEMOGLOBIN CONC 31.1 GM/DL 32.2-35.5 L (BEAKER) (test code = 752) RED CELL DISTRIBUTION WIDTH 15.8 % 11.7-14.4 H (BEAKER) (test code = 412) PLATELET COUNT (BEAKER) (test 165 K/CU MM 150-450 code = 756) MEAN PLATELET VOLUME (BEAKER) 9.9 fL 9.4-12.3 (test code = 754) NUCLEATED RED BLOOD CELLS 0 /100 WBC 0-0 (BEAKER) (test code = 413) NEUTROPHILS RELATIVE PERCENT 87 % (BEAKER) (test code = 429) LYMPHOCYTES RELATIVE PERCENT 6 % (BEAKER) (test code = 430) MONOCYTES RELATIVE PERCENT 6 % (BEAKER) (test code = 431) EOSINOPHILS RELATIVE PERCENT 0 % (BEAKER) (test code = 432) BASOPHILS RELATIVE PERCENT 0 % (BEAKER) (test code = 437) NEUTROPHILS ABSOLUTE COUNT 9.58 K/ L 1.56-6.13 H (BEAKER) (test code = 670) LYMPHOCYTES ABSOLUTE COUNT 0.68 K/ L 1.18-3.74 L (BEAKER) (test code = 414) MONOCYTES ABSOLUTE COUNT (BEAKER) 0.63 K/ L 0.24-0.36 H (test code = 415) EOSINOPHILS ABSOLUTE COUNT 0.03 K/ L 0.04-0.36 L (BEAKER) (test code = 416) BASOPHILS ABSOLUTE COUNT (BEAKER) 0.04 K/ L 0.01-0.08 (test code = 417) IMMATURE GRANULOCYTES-RELATIVE 1 % 0-1 PERCENT (BEAKER) (test code = 2801) RAD, CHEST, 1 VIEW, NON [id number] 21:43:00Post-intubationReason for exam:- >Pulmonary embolism. Massive.Should this be performed at the bedside?->Yes FINAL REPORT EXAMINATION: AP PORTABLE CHEST RADIOGRAPH CLINICAL INDICATION: Pulmonary embolism. IMPRESSION: No comparison studies are available. Asymmetric parenchymal consolidation is noted in the left suprahilar region as well as the left lung base. A component may reflect atelectasis or scarring given the elevation of the left hemidiaphragm and asymmetric loss of left lung volume. However, a pneumonia, pulmonary hemorrhage/infarct or underlying neoplastic process cannot be excluded. The blunting of the left costophrenic sulcus may reflect pleural fluid and/or pleural thickening. The heart is borderline enlarged for this projection. There is mild nonspecific soft tissue fullness of the mediastinum, most conspicuous near the left hilar region. No evidence of an acute osseous abnormality or pneumothorax. REGIONAL CRA shunt catheter tubing projects along the soft tissues of the right lower neck, chest wall and upper abdomen. Chest CT could be performed for further characterization if warranted. Signed: Amber Gunderson MDReport Verified Date/Time: 11/03/2017 21:43:26 Reading Location: [address] Reading Room BODY FLUIDS 2017-09-22 21:10:0011[facility] FDARCB2523-63-72 21:10:0064[facility] GHCSVW7692-72-38 21:10:0011[facility] QHYATW6822-67-93 21:10:0064[facility]annCHEM OOQAF5969-27-76 20:23:0039[facility]annCHEM JVJBM1604-34-61 20:23:03163Kxjdssmc HermannCHEM NJFKN7211-22-25 20:23:001.32 [facility] GYQXY7322-46-95 20:23:0021[facility]annCHEM PANEL 2017-09-21 20:23:48701Mosprvon HermannCHEM NMBRH9235-59-12 20:23:0029[facility]annCHEM JWJII1618-53-34 20:23:30170Wfkcqrgx HermannCHEM YQNOA8991-98-44 20:23:008.9[facility]annCHEM UPVPC7159-40-88 20:23:004.4[facility]annCHEM ZUMTT9379-25-41 20:23:0012.4[facility] DzpxxpyAXTUIKGZCG0668-05-31 20:23:004.3 [facility] KzgdwndPPOVTARTBV8597-63-86 20:23:000.5[facility]annHEMATOLOGY 2017-09-21 20:23:001.2[facility] BpcrttqENNMNSFOHL4862-62-82 20:23:000.7[facility] OulpcrcYOFKXQXEWQ7195-76-69 20:23:000.1[facility] CytcluaNJAVQOUTYP6587-05-79 20:23:000.2[facility] KgrgiclZORLDWKXHV8355-95-05 20:23:004.2[facility] Zaki FJJBCRHJQE1979-82-78 20:23:0072.9[facility] TsdkvqoZMPZYAEVVC4989-47-47 20:23:00 12.7[facility] OvtauprSIGOBHNVYK2742-19-95 20:23:009.0[facility]annHEMATOLOGY 2017-09-21 20:23:00 Test Item Value Reference Range Interpretation Comments INR (test code = INR) 1.09 1 0.85-1.17 [facility] SgppkwpKHHPBXJHRX5540-50-47 20:23:00 Test Item Value Reference Range Interpretation Comments PT (test code = PT) 14.1 s 12.0-14.7 [facility] SywuomoRWRAUEWKER6380-38-19 20:23:00 Test Item Value Reference Range Interpretation Comments PTT (test code = PTT) 25.6 s 22.9-35.8 [facility] NudycveWMHEKEIWRC3671-59-29 20:23:007.7[facility]annHEMATOLOGY 2017-09-21 20:23:27200Jzgbilwk ZkeqjafVGHGTLYHDY1118-49-02 20:23:005.9[facility] IxjhahlXGLTMBFNED9243-74-37 20:23:0088.6[facility] YhmpyfsKLSYYAKEBU4865-78-93 20:23:0034.3[facility] UsdwzufBERUPZPXYM7068-15-62 20:23:003.87[facility] RPOUCPCLUT7229-79-56 20:23:0016.2[facility] HytyjxyYGICTIEQOG8505-78-98 20:23:00 11.3[facility] HmpnvqeJCJLUYIJQK0292-07-77 20:23:00 Test Item Value Reference Range Interpretation Comments MCH (test code = MCH) 29.2 pg 27.0-31.0 [facility] RduwkvxQSRTSVTNWE9622-14-63 20:23:0033.0[facility] HermannCHEM PANEL 2017-09-21 20:23:0039[facility] HermannCHEM JOHME0987-51-81 20:23:13364Rbyganxk HermannCHEM JREUS6864-40-58 20:23:001.32[facility] HermannCHEM NMPCZ3061-95-46 20:23:0021[facility] HermannCHEM OHOTG8970-82-06 20:23:05164Vfzekutb HermannCHEM CWCYI3016-54-42 20:23:0029[facility] HermannCHEM NNWEV9993-13-56 20:23:12195 [facility]annCHEM UAVAN3954-34-71 20:23:008.9[facility] HermannCHEM PANEL 2017-09-21 20:23:004.4[facility] HermannCHEM JLMPG5617-59-19 20:23:0012.4[facility] TmnhulxIJFYDLODXX7473-41-01 20:23:004.3[facility] CwbbwyzOYLABNOFWX4072-09-54 20:23:000.5[facility] AlmpeyhBFHFPPBDVQ2529-94-04 20:23:001.2[facility] PBSVRMMFQZ4689-48-21 20:23:000.7[facility] CdcyuotJGQCUMHYIP2481-13-65 20:23:000.1 [facility] PvzxiozTDFOVSTZOR3232-16-41 20:23:000.2[facility] HermannHEMATOLOGY 2017-09-21 20:23:004.2[facility] FxinpcpNCJQXCDMET2915-57-69 20:23:0072.9[facility] VihexzrSGVDRVSYZG7868-64-62 20:23:0012.7[facility] SjtmykbOMVPQNFTZT0249-45-68 20:23:009.0[facility] IreavjfOGHTRYXXEJ0514-39-62 20:23:00 Test Item Value Reference Range Interpretation Comments INR (test code = INR) 1.09 1 0.85-1.17 [facility] CejcbxiJFQZZELYMF0616-73-01 20:23:00 Test Item Value Reference Range Interpretation Comments PT (test code = PT) 14.1 s 12.0-14.7 [facility] DuxgdlmYDYRBFESZK8552-52-56 20:23:00 Test Item Value Reference Range Interpretation Comments PTT (test code = PTT) 25.6 s 22.9-35.8 [facility] ZdgpselMWGNFOTTKQ0989-19-84 20:23:007.7[facility] HermannHEMATOLOGY 2017-09-21 20:23:26001Xbvfkvee GmvuqmkBEPGWYCVNE2997-67-53 20:23:005.9[facility] ExwbcvwGAGVGOZYEV0454-02-51 20:23:0088.6[facility] HzrlyekRIFXZELRWR9506-92-73 20:23:0034.3[facility] QfpmzmlGRLWWUVLHX8649-47-85 20:23:003.87[facility] Zaki TQRHQMQYPU7065-24-89 20:23:0016.2[facility] JbopgnkTZZPRAOQRQ4914-73-34 20:23:00 11.3[facility] EddjsbuCECYQUGUWZ6049-45-78 20:23:00 Test Item Value Reference Range Interpretation Comments MCH (test code = MCH) 29.2 pg 27.0-31.0 [facility] LtdylpsQKWBAHMFEI8947-77-03 20:23:0033.0[facility]
[2020-07-26 23:47] LABS: Absolute Lymphocytes (CBC) 0.5 K/uL (0.7-4.9); Basophils % 0.3 % (0-1.3); Hematocrit 33.7 % (36.0-45.0); MPV 8.3 fL (7.6-11.3); RBC Red Blood Cell Count 3.84 M/uL (3.86-4.86)
[2020-07-27 00:19] LABS: Bilirubin Direct 0.1 mg/dL (0-0.2); Bilirubin Total 0.4 mg/dL (0.2-1.0); Potassium 3.9 mmol/L (3.5-5.1); Protein, Total 7.6 g/dL (6.4-8.2)
[2020-07-27] MEDS ORDERED: NA CHLORIDE 0.9% 500 ML ONE (00:42)
[2020-07-27 01:05] LABS: Urine Blood NEGATIVE (NEG); Urine Glucose NEGATIVE (NEG); Urine Protein 1+ (NEG); Urine Specific Gravity >1.030 (1.005-1.030); Urine pH 5.5 (5.0-7.0)
[2020-07-27 01:32] LABS: Urine RBC <5 /HPF (NONE SEEN)
[2020-07-27 01:33] LABS: Urine Amorphous Sediment 1+ /HPF (NONE SEEN); Urine Bacteria >50 /HPF (<20); Urine Mucus 3+ /HPF (NONE SEEN)
--- NOTE | 2020-07-27 02:34 | ER ---
Nurse's Notes [facility] Name: Nori Gonzales Age: 80 yrs Sex: Female : 1940 Arrival Date: 07/26/2020 Time: 23:04 Bed 5 Private MD: Diagnosis: Urinary tract infection, site not specified;Dehydration;Acute Kidney Injury Presentation: 07/26 23:04 Chief complaint: EMS states: Pt had constipation took laxative 2 days ago and had a wh bowel movement. Pt was C/O RLQ pain post BM. PT now denies pain and stated it only lasted half an hour. Coronavirus screen: Client denies travel out of the [place] in the last 14 days. At this time, the client does not indicate any symptoms associated with coronavirus-19. Ebola Screen: Patient negative for fever greater than or equal to 101.5 degrees Fahrenheit, and additional compatible Ebola Virus Disease symptoms Patient denies exposure to infectious person. Initial Sepsis Screen: Does the patient meet any 2 criteria? HR > 90 bpm. Does the patient have a suspected source of infection? Yes: Acute abdominal pain. Risk Assessment: Do you want to hurt yourself or someone else? Patient reports no desire to harm self or others. Onset of symptoms was July 26, 2020. 23:04 Method Of Arrival: EMS: [facility] 23:04 Acuity: JADEN 3 wh Historical: - Allergies: 23:09 Codeine; 23:09 Diovan; 23:09 HYDROCODONE; 23:09 IV contrast; wh - PMHx: 23:09 adhesive apsulitis of right shoulder; ANOREXIA; chronic fatigue; Cognitive wh Comminication Deficit; Diabetes - NIDDM; dysphagia, oral phase; Hypothyroidism; Lung Cancer; Normal pressure hydrocephalus; PE; - Immunization history:: Adult Immunizations unknown. - Social history:: Smoking status: Patient/guardian denies using. Screenin:11 Abuse screen: Denies threats or abuse. Denies injuries from another. Nutritional wh screening: No deficits noted. Tuberculosis screening: No symptoms or risk factors identified. Fall Risk None identified. Assessment: 23:10 General: Appears in no apparent distress. Behavior is calm, cooperative, appropriate wh for age. Pain: Denies pain. Neuro: Level of Consciousness is awake, alert, obeys commands, Oriented to person, place, time, situation, Appropriate for age. Cardiovascular: Heart tones S1 S2. Respiratory: Airway is patent Respiratory effort is even, unlabored, Respiratory pattern is regular, symmetrical, Breath sounds are clear bilaterally. GI: Abdomen is flat, non-distended, Bowel sounds present X 4 quads. Abd is soft and non tender X 4 quads. : No signs and/or symptoms were reported regarding the genitourinary system. EENT: No signs and/or symptoms were reported regarding the EENT system. Derm: Skin is intact, is thin. Musculoskeletal: Circulation, motion, and sensation intact. 07/27 00:23 Reassessment: Patient and/or family updated on plan of care and expected duration. Pain ea level reassessed. Patient is alert, oriented x 3, equal unlabored respirations, skin warm/dry/pink. 01:05 Reassessment: Patient and/or family updated on plan of care and expected duration. Pain ea level reassessed. Patient is alert, oriented x 3, equal unlabored respirations, skin warm/dry/pink. Pt taken to CT. 02:30 Reassessment: Patient appears in no apparent distress at this time. Patient and/or wh family updated on plan of care and expected duration. Pain level reassessed. Patient is alert, oriented x 3, equal unlabored respirations, skin warm/dry/pink. 02:45 Reassessment: MD at bedside explaining POC need for admit. 03:36 Reassessment: Patient appears in no apparent distress at this time. Patient and/or family updated on plan of care and expected duration. Pain level reassessed. Patient is alert, oriented x 3, equal unlabored respirations, skin warm/dry/pink. Pt was just swabbed for Covid last Thursday according to Son and Facility but said that they cant forward the result until office hours, Notified Charge Nurse and Insurance Marketing Rep who stated Pt can go up stairs and just have morning Nurse follow up the result from facility. Vital Signs: 07/26 23:04 BP 137 / 86; Pulse 92; Resp 18; Temp 99; Pulse Ox 97% ; Weight 40.82 kg; Height 5 ft. 1 wh in. (154.94 cm); 07/27 00:23 BP 139 / 78; Pulse 88; Resp 18; Pulse Ox 98% on R/A; ea 01:30 BP 126 / 64; Pulse 91; Resp 18; Pulse Ox 97% on R/A; 02:30 BP 133 / 70; Pulse 89; Resp 18; Pulse Ox 98% on R/A; 03:30 BP 143 / 78; Pulse 89; Resp 18; Pulse Ox 98% on R/A; 07/26 23:04 Body Mass Index 17.01 (40.82 kg, 154.94 cm) ED Course: 07/26 23:04 Patient arrived in ED. 23:05 Will Diallo MD is Attending Physician. 7 23:08 Triage completed. 23:11 Patient has correct armband on for positive identification. Bed in low position. Call light in reach. Side rails up X 1. Pulse ox on. NIBP on. 23:11 Arm band placed on right wrist. 23:23 Reyna Shearer is Primary Nurse. 23:41 Inserted saline lock: 20 gauge in right forearm, using aseptic technique. Blood oe collected. 07/27 01:16 CT Abd/Pelvis - Without Contrast In Process Unspecified. [facility] 02:46 Roscoe Bhatti MD is Hospitalizing Provider. 7 03:36 No provider procedures requiring assistance completed. Patient admitted, IV remains in place. Administered Medications: 00:29 Drug: NS 0.9% 500 ml Route: IV; Rate: bolus; Site: right antecubital; 02:29 Follow up: Response: No adverse reaction; IV Status: Completed infusion 02:29 Drug: Rocephin - (cefTRIAXone) 1 grams Route: IVPB; Infused Over: 30 mins; Site: right antecubital; 03:40 Follow up: Response: No adverse reaction; IV Status: Completed infusion Outcome: 02:33 Discharge ordered by . 7 02:46 Decision to Hospitalize by Provider. 7 03:36 Admitted to Med/surg accompanied by nurse, via wheelchair, room 229, with chart, Report called to Nimo CAREY 03:36 Condition: stable 03:36 Instructed on the need for admit. 03:39 Patient left the ED. Signatures: Dispatcher [facility] EDUT Crescencio Fay Elena, RN RN ea Habalo, Winsy Will Diallo MD MD 7 Corrections: (The following items were deleted from the chart) 03:39 03:36 Reassessment: Patient appears in no apparent distress at this time. Patient wh and/or family updated on plan of care and expected duration. Pain level reassessed. Patient is alert, oriented x 3, equal unlabored respirations, skin warm/dry/pink. wh
--- NOTE | 2020-07-27 02:34 | EDPHYS ---
Physician Documentation [facility] Name: Nori Gonzales Age: 80 yrs Sex: Female : 1940 Arrival Date: 07/26/2020 Time: 23:04 Bed 5 Private MD: ED Physician Will Diallo HPI: 07/27 00:23 This 80 yrs old Female presents to ER via EMS with complaints of Abdominal mh7 Pain. 00:23 The patient presents with abdominal pain Right side. Onset: The symptoms/episode mh7 began/occurred last night. The symptoms radiate to the right flank. 00:25 Associated signs and symptoms: Pertinent positives: constipation, Pertinent negatives: mh7 nausea, vomiting, and diarrhea, anorexia, blood in stools, chest pain, diarrhea, dysuria, fever, headache, hematuria, nausea, palpitations, shortness of breath, vaginal discharge, vomiting, vomiting blood. The symptoms are described as intermittent, vague, waxing/waning. Modifying factors: The symptoms are alleviated by nothing, the symptoms are aggravated by nothing. Severity of pain: At its worst the pain was moderate last night, in the emergency department the pain has resolved and did so just prior to arrival. Historical: - Allergies: 07/26 23:09 Codeine; 23:09 Diovan; 23:09 HYDROCODONE; 23:09 IV contrast; wh - PMHx: 23:09 adhesive apsulitis of right shoulder; ANOREXIA; chronic fatigue; Cognitive wh Comminication Deficit; Diabetes - NIDDM; dysphagia, oral phase; Hypothyroidism; Lung Cancer; Normal pressure hydrocephalus; PE; - Immunization history:: Adult Immunizations unknown. - Social history:: Smoking status: Patient/guardian denies using. ROS: 07/27 00:25 Constitutional: Negative for fever, chills, and weight loss, Eyes: Negative for injury, mh7 pain, redness, and discharge, ENT: Negative for injury, pain, and discharge, Neck: Negative for injury, pain, and swelling, Cardiovascular: Negative for chest pain, palpitations, and edema, Respiratory: Negative for shortness of breath, cough, wheezing, and pleuritic chest pain, : Negative for injury, bleeding, discharge, and swelling, MS/Extremity: Negative for injury and deformity, Skin: Negative for injury, rash, and discoloration, Neuro: Negative for headache, weakness, numbness, tingling, and seizure, Psych: Negative for depression, anxiety, suicide ideation, homicidal ideation, and hallucinations, Allergy/Immunology: Negative for hives, rash, and allergies, Endocrine: Negative for neck swelling, polydipsia, polyuria, polyphagia, and marked weight changes, Hematologic/Lymphatic: Negative for swollen nodes, abnormal bleeding, and unusual bruising. Exam: 00:25 Constitutional: This is a well developed, well nourished patient who is awake, alert, mh7 and in no acute distress. Head/Face: Normocephalic, atraumatic. Eyes: Pupils equal round and reactive to light, extra-ocular motions intact. Lids and lashes normal. Conjunctiva and sclera are non-icteric and not injected. Cornea within normal limits. Periorbital areas with no swelling, redness, or edema. Neck: Trachea midline, no thyromegaly or masses palpated, and no cervical lymphadenopathy. Supple, full range of motion without nuchal rigidity, or vertebral point tenderness. No Meningismus. Chest/axilla: Normal chest wall appearance and motion. Nontender with no deformity. No lesions are appreciated. Cardiovascular: Regular rate and rhythm with a normal S1 and S2. No gallops, murmurs, or rubs. Normal PMI, no JVD. No pulse deficits. Respiratory: Lungs have equal breath sounds bilaterally, clear to auscultation and percussion. No rales, rhonchi or wheezes noted. No increased work of breathing, no retractions or nasal flaring. Abdomen/GI: Soft, non-tender, with normal bowel sounds. No distension or tympany. No guarding or rebound. No evidence of tenderness throughout. Back: No spinal tenderness. No costovertebral tenderness. Full range of motion. Skin: Warm, dry with normal turgor. Normal color with no rashes, no lesions, and no evidence of cellulitis. MS/ Extremity: Pulses equal, no cyanosis. Neurovascular intact. Full, normal range of motion. Neuro: Awake and alert, GCS 15, oriented to person, place, time, and situation. Cranial nerves II-XII grossly intact. Motor strength 5/5 in all extremities. Sensory grossly intact. Cerebellar exam normal. Normal gait. Psych: Awake, alert, with orientation to person, place and time. Behavior, mood, and affect are within normal limits. Vital Signs: 07/26 23:04 BP 137 / 86; Pulse 92; Resp 18; Temp 99; Pulse Ox 97% ; Weight 40.82 kg; Height 5 ft. 1 wh in. (154.94 cm); 07/27 00:23 BP 139 / 78; Pulse 88; Resp 18; Pulse Ox 98% on R/A; ea 01:30 BP 126 / 64; Pulse 91; Resp 18; Pulse Ox 97% on R/A; wh 02:30 BP 133 / 70; Pulse 89; Resp 18; Pulse Ox 98% on R/A; wh 03:30 BP 143 / 78; Pulse 89; Resp 18; Pulse Ox 98% on R/A; 07/26 23:04 Body Mass Index 17.01 (40.82 kg, 154.94 cm) MDM: 02:31 Differential diagnosis: appendicitis, bowel obstruction, diverticulitis, non-specific mh7 abd pain, Pyelonephritis, Ureterolithiasis, urinary tract infection. Data reviewed: vital signs, nurses notes, EMS record, old medical records, lab test result(s), CBC, electrolytes, urinalysis, EKG, radiologic studies, CT scan. Data interpreted: Pulse oximetry: on room air is 98 %. Interpretation: normal. Counseling: I had a detailed discussion with the patient and/or guardian regarding: the historical points, exam findings, and any diagnostic results supporting the discharge/admit diagnosis, lab results, radiology results, to return to the emergency department if symptoms worsen or persist or if there are any questions or concerns that arise at home. Response to treatment: the patient's symptoms have resolved after treatment, the patient's blood pressure is in an acceptable range, mental status has returned to baseline, the patient no longer shows bradycardia, the patient is not short of breath, the patient is not tachycardic, the patient's pain is gone, the patient's temperature has normalized. 02:33 Patient medically screened. [facility] 07/26 23:22 Order name: Basic Metabolic Panel; Complete Time: 00:20 [facility] 07/26 23:22 Order name: CBC with Diff; Complete Time: 00:12 [facility] 07/26 23:22 Order name: Hepatic Function; Complete Time: 00:20 [facility] 07/26 23:22 Order name: Lipase; Complete Time: 00:20 [facility] 07/27 00:59 Order name: Urine Microscopic Only; Complete Time: 01:53 07/27 01:02 Order name: Urine Dipstick--Ancillary (enter results); Complete Time: 01:53 [facility] 07/26 23:22 Order name: IV Saline Lock; Complete Time: 23:43 [facility] 07/26 23:22 Order name: Labs collected and sent; Complete Time: 23:43 [facility] 07/26 23:22 Order name: Urine Dipstick-Ancillary (obtain specimen); Complete Time: 00:55 [facility] 07/27 00:20 Order name: CT Abd/Pelvis - Without Contrast [facility] 07/27 00:23 Order name: EKG - Nurse/Tech; Complete Time: 00:29 [facility] 07/27 01:35 Order name: Urine Culture EDMS Administered Medications: 00:29 Drug: NS 0.9% 500 ml Route: IV; Rate: bolus; Site: right antecubital; 02:29 Follow up: Response: No adverse reaction; IV Status: Completed infusion 02:29 Drug: Rocephin - (cefTRIAXone) 1 grams Route: IVPB; Infused Over: 30 mins; Site: right antecubital; 03:40 Follow up: Response: No adverse reaction; IV Status: Completed infusion Disposition: 07/27/20 02:46 Hospitalization ordered by Roscoe Bhatti for Observation. Preliminary diagnosis are Urinary tract infection, site not specified, Dehydration, Acute Kidney Injury. - Bed requested for Telemetry/MedSurg (Inpatient). - Status is Observation. - Condition is Stable. - Problem is new. - Symptoms have improved. Signatures: Dispatcher [facility] EDAL Leola Nieto RN RN mw Habalo, Reyna Will Diallo MD MD 7 Corrections: (The following items were deleted from the chart) 02:42 02:33 07/27/2020 02:33 Discharged to Home. Impression: Unspecified abdominal pain; 7 Urinary tract infection, site not specified; Dehydration. Condition is Stable. Forms are Medication Reconciliation Form, Thank You Letter, Antibiotic Education, Prescription Opioid Use. Follow up: Private Physician; When: 1 - 2 days; Reason: If symptoms return, Worsening of condition, Recheck today's complaints, Continuance of care, Re-evaluation by your physician. Problem is an acute exacerbation. Symptoms have improved. 7 02:54 02:46 Hospitalization Ordered by Roscoe Bhatti MD for Observation. Preliminary mw diagnosis is Urinary tract infection, site not specified; Dehydration; Acute Kidney Injury. Bed requested for Telemetry/MedSurg (observation). Status is Observation. Condition is Stable. Problem is new. Symptoms have improved. [facility] 03:39 02:54 07/27/2020 02:46 Hospitalization Ordered by Roscoe Bhatti MD for Observation. wh Preliminary diagnosis is Urinary tract infection, site not specified; Dehydration; Acute Kidney Injury. Bed requested for Telemetry/MedSurg (Inpatient). Status is Observation. Condition is Stable. Problem is new. Symptoms have improved. mw
[2020-07-27] MEDS ORDERED: CEFTRIAXONE/SWI 1gm 1 GM/10 ML SYR ONE (02:36)
[2020-07-27] MEDS ORDERED: ACETAMINOPHEN 500 MG TAB PO PRN (03:42)
[2020-07-27] MEDS ORDERED: ONDANSETRON 4 MG/2 ML VIAL IV PRN (03:42)
[2020-07-27] MEDS ORDERED: D50W 25 GM/50 ML SYRINGE IV PRN (03:42)
[2020-07-27] MEDS ORDERED: FENTANYL CITR 100 MCG/2 ML IV PRN (03:42)
[2020-07-27] MEDS ORDERED: GLUCAGON 1 MG/VIAL IM PRN (03:42)
[2020-07-27 04:02] VITALS: BMI 16.7
[2020-07-27] MEDS: NA CHLORIDE 0.9% 1,000 ML IV SCH ×3 (04:27→22:21)
--- NOTE | 2020-07-27 04:53 | P.HP ---
Certification for Inpatient Patient admitted to: Inpatient With expected LOS: >2 Midnights Patient will require the following post-hospital care: None Practitioner: I am a practitioner with admitting privileges, knowledge of patient current condition, hospital course, and medical plan of care. Services: Services provided to patient in accordance with Admission requirements found in Title 42 Section 412.3 of the Code of Federal Regulations <Sarah Ortizshua - Last Filed: 07/27/20 04:47> Patient History Date of Service: 07/27/20 Reason for admission: Acute renal failure, urinary tract infection History of Present Illness: This is an 80-year-old female with history of hydrocephalus and Parkinson's disease that currently resides [facility] the [facility] that was brought in via EMS for abdominal pain that radiated to the right flank that started this evening. Patient stated that she had been constipated but since she has had a bowel movement is feeling much better. Patient was worked up in the emergency room and was found to have acute with a creatinine of 2.11 and a BUN of 45 which is new for this patient. Patient also found to have urinary tract infection. Patient was started on fluids and Rocephin in the emergency room in medicine was called at that time for admission for further workup for the urinary tract infec tion and acute kidney injury. Home medications list reviewed: Yes - Past Medical/Surgical History Has patient received pneumonia vaccine in the past: No Diabetic: No -: Lung Cancer- had chemotherapy & radiation x 2 -: HTN -: Normal-pressure hydrocephalus with the benign intracranial hypertension -: Tonsillectomy -: left Lobectomy -: Wedge Dissection -: Chemotherapy -: Radiation (2x) -: Ventricular peritoneal shunt for intracranial hypertension and then in - Family History Family History: Reviewed- Non-Contributory - Family History Brother -: Cancer Notes: Throat Father -: Heart disease, Other (see notes) Notes: Myocardial Infarction. has been for 40 years Son -: Cancer Notes: Jaw - Social History Smoking Status: Never smoker Smoking therapy provided: No Alcohol use: No CD- Drugs: No Caffeine use: Yes Place of Residence: Longterm <Sammy Ortiz - Last Filed: 07/27/20 04:47> Date of Service: 07/27/20 <Roscoe Bhatti - Last Filed: 07/27/20 17:36> Allergies codeine Allergy (Verified 07/27/20 05:50) Unknown hydrocodone Allergy (Verified 07/27/20 05:50) Unknown Iodinated Contrast Media Allergy (Verified 07/27/20 05:50) UNKNOWN Sulfa (Sulfonamide Antibiotics) Allergy (Verified 09/25/17 16:09) Hives/Rash valsartan [From Diovan] Allergy (Verified 07/27/20 05:50) Unknown Home Medications: Levothyroxine [Synthroid] 25 mcg PO [id number] 30 Days tablet 10/09/17 Amlodipine [Norvasc] 2.5 mg PO BEDTIME 07/27/20 Aspirin Chewable [Aspirin Chewable*] 81 mg PO DAILY 07/27/20 Carbidopa/Levodopa 25-100 [Sinemet 25-100*] 1 tab PO DAILY 07/27/20 Docusate [Colace Cap] 100 mg PO Q12HP PRN 07/27/20 Fleet Bisacodyl Enema 1 dose [place] DAILYPRN PRN 07/27/20 Fluticasone [Flonase 50mcg Nasal [place]] 1 sprays NS Q12HP PRN 07/27/20 Omeprazole 20 mg PO BEDTIME 07/27/20 Ondansetron HCl [Zofran] 4 mg PO Q12HP PRN 07/27/20 Polyethylene Glycol 3350 [Miralax] 17 gm PO DAILYPRN PRN 07/27/20 carvediloL [Coreg] 12.5 mg PO BID 07/27/20 Review of Systems General: Unremarkable Eyes: Unremarkable ENT: Unremarkable Respiratory: Unremarkable Cardiovascular: Unremarkable Gastrointestinal: Abdominal Pain, Constipation Musculoskeletal: Unremarkable Integumentary: Unremarkable Neurological: Unremarkable Lymphatics: Unremarkable <SteffweiSammy - Last Filed: 07/27/20 04:47> Physical Examination - Vital Signs Temperature: 99 F Blood Pressure: 143/78 Pulse: 89 Respirations: 18 Pulse Ox (%): 98 (Room air) - Physical Exam General: Alert, In no apparent distress, Oriented x3, Cooperative HEENT: PERRLA, Mucous membr. moist/pink, EOMI Neck: Supple, 2+ carotid pulse no bruit, JVD not distended, No Thyromegaly Respiratory: Clear to auscultation bilaterally, Normal air movement Cardiovascular: No edema, Normal pulses, Regular rate/rhythm, Normal S1 S2, No gallops, No rubs, No murmurs Capillary refill: <2 Seconds Gastrointestinal: Normal bowel sounds, Soft and benign, Non-distended, No ascites, No tenderness, No masses, No rebound, No guarding Musculoskeletal: No clubbing, No swelling, No contractures, No erythema, No tenderness, No warmth Integumentary: Other (Skin is dry with decreased turgor) Neurological: Normal speech, Normal strength at 5/5 x4 extr, Normal tone, Sensation intact, Cranial nerves 3-12 intact, Normal affect Lymphatics: No axilla or inguinal lymphadenopathy - Studies Laboratory Data (last 24 hrs) 07/26/20 23:37: WBC 9.0, Hgb 11.2 L, Hct 33.7 L, Plt Count 189 07/26/20 23:37: Sodium 137, Potassium 3.9, BUN 45 H, Creatinine 2.11 H, Glucose 174 H, Total Bilirubin 0.4, AST 18, ALT 13, Alkaline Phosphatase 78, Lipase 94 <Sammy Ortiz - Last Filed: 07/27/20 04:47> - Studies Laboratory Data (last 24 hrs) 07/26/20 23:37: WBC 9.0, Hgb 11.2 L, Hct 33.7 L, Plt Count 189 07/26/20 23:37: Sodium 137, Potassium 3.9, BUN 45 H, Creatinine 2.11 H, Glucose 174 H, Total Bilirubin 0.4, AST 18, ALT 13, Alkaline Phosphatase 78, Lipase 94 <Roscoe Bhatti - Last Filed: 07/27/20 17:36> Assessment and Plan - Problems (Diagnosis) (1) Urinary tract infection Current Visit: Yes Status: Acute Qualifiers: Urinary tract infection type: acute cystitis Hematuria presence: without hematuria Qualified Code(s): N30.00 - Acute cystitis without hematuria (2) Acute kidney injury Current Visit: Yes Status: Acute (3) Acute prerenal azotemia Current Visit: Yes Status: Acute (4) Dehydration Current Visit: No Status: Acute (5) Hypertension Current Visit: Yes Status: Chronic Qualifiers: Hypertension type: essential hypertension Qualified Code(s): I10 - Essential (primary) hypertension - Plan 1. Patient will be monitored on the hospital. Labs will be drawn daily. Vitals will be monitored. 2. Patient is to have light hydration to further increase her renal function. We will continue to monitor her renal function of the next day or 2 to ensure that it increases. Likely this is prerenal azotemic secondary to dehydration. Patient admits to not drinking enough water on a daily basis and that this has happened in the past. 3. Patient will be on Rocephin q.12 hr for urinary tract infection. Urine will be cultured for sensitivity. Will adjust antibiotics as needed. Will ensure patient does not become uroseptic. 4. Checking A1C as patient had mildly elevated glucose on labs today but no history of diabetes on the [facility] side or in her current medication list. 5. DVT prophylaxis 6. Will control blood pressure as needed. Discharge Plan: Longterm Plan to discharge in: 48 Hours - Advance Directives Does patient have a Living Will: No Does patient have a Durable POA for Healthcare: Yes - Code Status/Comfort Care Code Status Assessed: No Critical Care: No Time Spent Managing Pts Care (In Minutes): 70 <Sammy Ortiz - Last Filed: 07/27/20 04:47> - Plan Plan of care discussed with Sammy Ortiz, and I agree with the management plan as noted above. Patient seen and evaluated, reports pain has resolved, few much better this morning Continue antibiotics and IV fluids, awaiting urine cultures. <Roscoe Bhatti - Last Filed: 07/27/20 17:36>
[2020-07-27] MEDS ORDERED: INSULIN -REGULAR HUMAN 50 UNIT/0.5 ML ML SQ SCH (07:30)
[2020-07-27 08:55] LABS: Absolute Lymphocytes (CBC) 0.8 K/uL (0.7-4.9); Basophils % 0.6 % (0-1.3); Hematocrit 27.5 % (36.0-45.0); Lymphocytes % 10.8 % (15.3-44.8); MPV 8.2 fL (7.6-11.3); RBC Red Blood Cell Count 3.17 M/uL (3.86-4.86)
[2020-07-27 09:25] LABS: Magnesium 1.6 mg/dL (1.8-2.4); Potassium 3.5 mmol/L (3.5-5.1)
[2020-07-27] MEDS: CEFTRIAXONE/SWI 1gm 1 GM/10 ML SYR IV SCH (09:50)
[2020-07-27] MEDS ORDERED: CEFTRIAXONE 1 GM/NS 50 ML 1 GM/50 ML BAG IV SCH (13:00)
[2020-07-27] MEDS ORDERED: CEFTRIAXONE 1,000 MG in WATER FOR INJ,STERILE 10 ML IVP SCH (13:00)
[2020-07-27] MEDS ORDERED: ENOXAPARIN 40 MG/0.4 ML SQ SCH (17:00)
[2020-07-27] MEDS: ENOXAPARIN 30 MG/0.3 ML SQ SCH (18:00)
--- NOTE | 2020-07-27 18:11 | RAD REPORT ---
EXAM DESCRIPTION: CT - Abdomen Pelvis Wo Contrast - 07/27/2020 6:25 am CLINICAL HISTORY: Abdominal pain. COMPARISON: CT abdomen and pelvis without contrast 08/22/2019. TECHNIQUE: Axial unenhanced CT imaging of the abdomen and pelvis performed. Reformatted coronal and sagittal images reviewed. A dose reduction technique was utilized with automated exposure control according to patient size. FINDINGS: There is complete leftward shift of the heart into the left hemithorax with a chronic trac e left pleural fluid with pleural thickening. There is a small pericardial effusion. The imaged r ight lower lobe and right middle lobe are clear. Unremarkable liver. Gallbladder has been resected. Normal spleen and pancreas. Normal adrenal g lands and kidneys. There is moderate abdominal aorta atherosclerosis. No aneurysm. Normal calib er inferior vena cava. No adenopathy. Unremarkable stomach. The small bowel loops appear normal. Appendix is not definitely seen. The re is a 3 cm complex fluid loculated collection inferior to the right lobe of the liver without inter zachary change. Unremarkable colon. There is an intraperitoneal catheter coiled within the pelvis. The superior subcutaneous extent is not fully imaged. Unremarkable bladder. Normal uterus. There is minimal pelvic free fluid. No pelvic adenopathy. Normal lumbar lordosis. Intact bony pelvis. Normal hips. IMPRESSION: 1. Chronic loculated inferior perihepatic 3 cm fluid collection may represent pseudocy st. A small amount of pelvic free fluid is present which is likely secondary to the presumed ventri culoperitoneal shunt catheter which is coiled within the pelvis. 2. Chronic left lung volume loss, presumably secondary to pneumonectomy for lung cancer, with trace left chronic pleural fluid and pleural thickening. There is a small pericardial effusion also pres ent. Complete leftward deviation of the heart into the left hemithorax. Electronically signed by: Tejal Subramanian DO 07/27/2020 1:35 AM IMPLEMENTATION SPECIALIST Due to temporary technical issues with the PACS/Fluency reporting system, reports are being signed by the in house radiologists without review as a courtesy to insure prompt reporting. The interpreting radiologist is fully responsible for the content of the report.
[2020-07-27] MEDS ORDERED: POLYETHYL GLY 3350 17 GM/DOSE PO PRN (18:29)
[2020-07-27] MEDS ORDERED: DOCUSATE NA 100 MG CAP PO PRN (18:29)
[2020-07-27] MEDS ORDERED: ONDANSETRON 4 MG (ODT) TAB PO PRN (18:29)
[2020-07-27] MEDS: PANTOPRAZOLE 40MG TABLET PO SCH ×2 (21:00→21:50)
[2020-07-27] MEDS: AMLODIPINE 2.5 MG TAB PO SCH (21:50)
[2020-07-27] MEDS: carvediloL 12.5 MG TAB PO SCH (21:50)
[2020-07-28 06:05] LABS: Absolute Lymphocytes (CBC) 0.6 K/uL (0.7-4.9); Basophils % 0.8 % (0-1.3); Hematocrit 28.1 % (36.0-45.0); Lymphocytes % 11.1 % (15.3-44.8); MPV 8.5 fL (7.6-11.3); RBC Red Blood Cell Count 3.22 M/uL (3.86-4.86)
[2020-07-28] MEDS: LEVOTHYROXINE SOD 0.025 MG TAB PO SCH (06:08)
[2020-07-28 06:30] LABS: Magnesium 1.6 mg/dL (1.8-2.4); Potassium 3.3 mmol/L (3.5-5.1)
[2020-07-28] MEDS ORDERED: MAGNESIUM SULFATE 1 gm IVPB 1 GM/100 ML BAG IV ONE (09:00)
[2020-07-28] MEDS ORDERED: POTASSIUM CL SA 10 MEQ TAB PO ONE (09:00)
[2020-07-28] MEDS: ASPIRIN 81 MG CHEWABLE TABLET PO SCH (09:42)
[2020-07-28] MEDS: carvediloL 12.5 MG TAB PO SCH ×2 (09:42→21:25)
[2020-07-28] MEDS: CARBIDOPA/LEVODOPA 25/100 TAB PO SCH (09:42)
[2020-07-28] MEDS: CEFTRIAXONE/SWI 1gm 1 GM/10 ML SYR IV SCH (09:42)
[2020-07-28] MEDS: NA CHLORIDE 0.9% 1,000 ML IV SCH (09:43)
--- NOTE | 2020-07-28 09:49 | P.PN ---
Subjective Date of Service: 07/28/20 Chief Complaint: Acute renal failure, urinary tract infection Subjective: Improving (denies pain, feeling well, ambulated in room, no dysuria.) Physical Examination - Vital Signs Temperature: 99.9 F Blood Pressure: 161/74 Pulse: 87 Respirations: 18 Pulse Ox (%): 100 - Physical Exam General: Alert, In no apparent distress HEENT: Sclerae nonicteric Respiratory: Clear to auscultation bilaterally Cardiovascular: No edema, Regular rate/rhythm Gastrointestinal: Soft and benign, No tenderness Musculoskeletal: No tenderness Neurological: Normal speech, Normal affect Assessment & Plan Physician Review Additional Text: UTI, cystitis BRADFORD, prerenal azotemia Hypertension Hypothyroidism -on rocephin, awaiting cultures, growing gram-negative rods -[place] improving with IV fluid hydration, discontinued overnight -resume home medications -PT to evaluate patient -overall improving Dispo: [facility] in the next 24 hr, awaiting final culture results Time Spent Managing Pts Care (In Minutes): 35
[2020-07-28] MEDS: ENOXAPARIN 30 MG/0.3 ML SQ SCH (16:29)
[2020-07-28] MEDS: AMLODIPINE 2.5 MG TAB PO SCH (21:25)
[2020-07-28] MEDS: PANTOPRAZOLE 40MG TABLET PO SCH (21:25)
[2020-07-29 05:46] LABS: Magnesium 1.8 mg/dL (1.8-2.4); Potassium 3.4 mmol/L (3.5-5.1)
[2020-07-29] MEDS: LEVOTHYROXINE SOD 0.025 MG TAB PO SCH ×2 (05:59→07:31)
[2020-07-29] MEDS ORDERED: MAGNESIUM SULFATE 1 gm IVPB 1 GM/100 ML BAG IV ONE (07:45)
[2020-07-29] MEDS ORDERED: POTASSIUM CL SA 10 MEQ TAB PO ONE (08:00)
[2020-07-29] MEDS: CEFTRIAXONE/SWI 1gm 1 GM/10 ML SYR IV SCH (08:36)
[2020-07-29] MEDS: carvediloL 12.5 MG TAB PO SCH (08:36)
[2020-07-29] MEDS: CARBIDOPA/LEVODOPA 25/100 TAB PO SCH (08:36)
[2020-07-29] MEDS: ASPIRIN 81 MG CHEWABLE TABLET PO SCH (08:37)
[2020-07-29] MEDS ORDERED: MAGNESIUM CHLORIDE 64 MG TAB PO ONE (09:27)
[2020-07-29 09:30] VITALS: O2SAT 95
--- NOTE | 2020-07-29 11:08 | P.DS ---
Admission Date: 07/27/20 Discharge Date: 07/29/20 Disposition: TRANSFER TO CARE HOME Discharge Condition: GOOD Reason for Admission: Acute renal failure, urinary tract infection Procedures: CT Abd/Pelvis (07/27): 1. Chronic loculated inferior perihepatic 3 cm fluid collection may represent pseudocyst. A small amount of pelvic free fluid is present which is likely secondary to the presumed ventriculoperitoneal shunt catheter which is coiled within the pelvis. 2. Chronic left lung volume loss, presumably secondary to pneumonectomy for lung cancer, with trace left chronic pleural fluid and pleural thickening. There is a small pericardial effusion also present. Complete leftward deviation of the heart into the left hemithorax. 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 Patient stated that she had been constipated but since she has had a bowel movement is feeling much better. Patient was worked up in the emergency room and was found to have an BRADFORD (Cr: 2.11, BUN: 45) which is new for the patient. Patient also found to have urinary tract infection. Hospital Course: Patient was admitted and treated with IV antibiotics. She had notable improvement in her symptoms and was feeling back to her baseline. She was able to ambulate with physical therapy without much issue. Her urine culture grew pansensitive Klebsiella pneumoniae and she was discharged back to her retirement with 7 days of Augmentin b.i.d.. During her hospitalization she was noted to be hypokalemic and was requiring daily potassium replacement, and she was discharged with potassium replacement. Recommended that she have a repeat BMP in this coming week. Her BRADFORD a resolved with IV fluid hydration, consistent with prerenal azotemia. (Cr: 2.11 -> 1.17). She was counseled on the importance of staying well hydrated. She reported that she hates water and often forgets /does not want to drink any. Vital Signs/Physical Exam: Temp Pulse Resp BP Pulse Ox 98.8 F 92 H 16 171/79 H 95 07/29/20 04:00 07/29/20 08:36 07/29/20 04:00 07/29/20 08:36 07/29/20 04:00 General: Alert, In no apparent distress, Oriented x3 HEENT: Mucous membr. moist/pink, Sclerae nonicteric Neck: Supple Respiratory: Clear to auscultation bilaterally, Normal air movement Cardiovascular: Regular rate/rhythm, Normal S1 S2 Gastrointestinal: Soft and benign, No tenderness Integumentary: Tenderness/swelling (tenderness of b/l lower legs (chronic)) Neurological: Normal speech, Normal affect Laboratory Data at Discharge: WBC 5.3 K/uL (4.3-10.9) D 07/28/20 05:40 Hgb 9.4 g/dL (12.0-15.0) L 07/28/20 05:40 Hct 28.1 % (36.0-45.0) L 07/28/20 05:40 Plt Count 181 K/uL (152-406) 07/28/20 05:40 Sodium 139 mmol/L (136-145) 07/29/20 04:46 Potassium 3.4 mmol/L (3.5-5.1) L 07/29/20 04:46 BUN 18 mg/dL (7-18) 07/29/20 04:46 Creatinine 1.17 mg/dL (0.55-1.3) 07/29/20 04:46 Glucose 95 mg/dL (74-106) 07/29/20 04:46 Magnesium 1.8 mg/dL (1.8-2.4) 07/29/20 04:46 Total Bilirubin 0.4 mg/dL (0.2-1.0) 07/26/20 23:37 AST 18 U/L (15-37) 07/26/20 23:37 ALT 13 U/L (12-78) 07/26/20 23:37 Alkaline Phosphatase 78 U/L (45-117) 07/26/20 23:37 Lipase 94 U/L (73-393) 07/26/20 23:37 Home Medications: Levothyroxine [Synthroid*] 25 mcg PO [id number] 30 Days tablet 10/09/17 Amlodipine [Norvasc*] 2.5 mg PO BEDTIME 07/27/20 Aspirin Chewable [Aspirin Chewable*] 81 mg PO DAILY 07/27/20 Carbidopa/Levodopa 25-100 [Sinemet 25-100*] 1 tab PO DAILY 07/27/20 Docusate [Colace Cap*] 100 mg PO Q12HP PRN 07/27/20 Fleet Bisacodyl Enema 1 dose [place] DAILYPRN PRN 07/27/20 Fluticasone [Flonase 50MCG Nasal [place]*] 1 sprays NS Q12HP PRN 07/27/20 Omeprazole 20 mg PO BEDTIME 07/27/20 Ondansetron HCl [Zofran] 4 mg PO Q12HP PRN 07/27/20 Polyethylene Glycol 3350 [Miralax] 17 gm PO DAILYPRN PRN 07/27/20 carvediloL [Coreg*] 12.5 mg PO BID 07/27/20 Amoxicillin/Potassium Clav [Augmentin 875-125 Tablet] 1 each PO BID 7 Days #14 tablet 07/29/20 Potassium Citrate [Potassium Citrate ER] 10 meq PO DAILY 5 Days #5 tablet.er 07/29/20 New Medications: Amoxicillin/Potassium Clav [Augmentin 875-125 Tablet] 1 each PO BID 7 Days #14 tablet Potassium Citrate [Potassium Citrate ER] 10 meq PO DAILY 5 Days #5 tablet.er Patient Discharge Instructions: You have a urinary tract infection - new medications: Augmentin - 1 tablet twice a day for 7 days. You also had slightly low potassium, and will have a prescription for 10meq potassium tablet - take once a day for 5 days. Follow up with your PCP within 1 week, have your potassium and magnesium level rechecked at that time. Continue all other home medications as previously prescribed. Diet: Regular Activity: Ad lance Followup: NONE,NONE [Primary Care Provider] - Time spent managing pt's care (in minutes): 35
[2020-07-29 15:21] VITALS: BP 141/68; TEMP 97.6
== END 2020-07-29 15:13 | DRG 683 ==
LOC: ER 23:03 → ERHOLD 07-27 02:47 → 2ND 07-27 03:36
PROVIDERS: ADMIT Hospitalist; ATTEND Hospitalist
DX: N17.9 Acute kidney failure, unspecified (principal); N30.00 Acute cystitis without hematuria; G20 Parkinson's disease; E86.0 Dehydration; E03.9 Hypothyroidism, unspecified; E87.6 Hypokalemia; I10 Essential (primary) hypertension; B96.1 Klebsiella pneumoniae [K. pneumoniae] as the cause of diseases classified elsewhere; R79.89 Other specified abnormal findings of blood chemistry; Z88.5 Allergy status to narcotic agent; Z88.8 Allergy status to other drugs, medicaments and biological substances; Z91.041 Radiographic dye allergy status; Z86.711 Personal history of pulmonary embolism; Z85.118 Personal history of other malignant neoplasm of bronchus and lung; Z92.21 Personal history of antineoplastic chemotherapy; Z88.1 Allergy status to other antibiotic agents; Z79.890 Hormone replacement therapy; Z79.82 Long term (current) use of aspirin; Z79.899 Other long term (current) drug therapy; Z20.828 Contact with and (suspected) exposure to other viral communicable diseases
CPT/HCPCS: 36415; 74176; 80048; 80076; 81003; 81015; 83036; 83690; 83735; 84132; 85025; 87077; 87086; 87088; 87186; 93005; 96361; 96365; 97116; 97161; 99285; J0696; J1650; J3475; J7030; J7040; U0003